=== PATIENT | female | born 1975 | race Caucasian/White ===

== ENCOUNTER 2020-09-07 14:22 | Inpatient (IN) | payer OTHER, SELFPAY ==
[2020-09-07 14:30] VITALS: BP 191/111; PULSE 109; RESP 20; TEMP 36.8; O2SAT 96; BMI 43.5
--- NOTE | 2020-09-07 15:04 | ED_ITS ---
HPI - Psych General Chief Complaint: Psychiatric Symptoms Stated Complaint: not feeling well with n/v Time Seen by Provider: 09/07/20 17:15 Source: patient History of Present Illness HPI Narrative: Patient presents to ED for suicidal ideation. Patient denies having an actual suicidal plan. Patient has been increasingly depressed. Patient has not taking her Zoloft from 1 week. Patient denies suicide attempts in the past. Patient admits drinking alcohol to deal with her depression. patient states although she has been drinking alcohol, she has been drinking less than usual. Patient states she is trying to detox herself from alcohol. Patient states yesterday while sleeping she believes she might have seizure occurred while and than she woke up with urine on herself. Patient states usually when she does not drink enough alcohol she goes into seizure. Patient denies falling, hitting head, or any trauma. MD complaint: suicidal ideation and feels depressed Related Data Allergies Allergy/AdvReac Type Severity Reaction Status Date / Time trazodone [Trazodone] Allergy Severe SWELLING Verified 09/07/20 14:37 oseltamivir Allergy Unknown Unknown Verified 09/07/20 14:37 Review of Systems Review of Systems: Patient is sad. Constitutional: Constitutional: Reports no additional constitutional complaints Eyes: Eyes: Reports as per HPI and Reports no additional eye complaints ENT: Reports system reviewed and no additional complaints, except as documented Cardiovascular: Cardiovascular: Reports no additional cardiovascular complaints Respiratory: Respiratory: Reports as per HPI and Reports no additional respiratory complaints Gastrointestinal: Gastrointestinal: Reports as per HPI, Reports no additional gastrointestinal complaints, Denies abdominal pain, Denies belching, Denies melena, Denies bloating, Denies hematochezia, Denies tenesmus, Denies change in stool character, Denies diarrhea and Denies vomiting Musculoskeletal: Musculoskeletal: Reports no additional musculoskeletal complaints Psychiatric: Psychiatric: Reports no additional psychiatric complaints, Reports depression and Reports suicidal ideation [facility] Social History Social History Alcohol intake: current Alcohol intake frequency: 3 or more drinks per day Alcohol type: hard liquor Smoking Status: Never smoker Use of substances other than those prescribed or required for medical reasons: No Advance Directives: No Advance Directives Information Provided: No Physical Exam Vital Signs: Vital Signs: Vital Signs Temp Pulse Resp BP Pulse Ox 09/07/20 16:50 109 H 16 171/104 H 97 09/07/20 15:32 109 H 191/111 H 09/07/20 14:30 98.3 F 109 H 20 191/111 H 96 Body Mass Index 43.5 Const: General: cooperative, healthy appearing and comfortable Orientation/consciousness: patient oriented x3 HENMT: Head: Yes normal to inspection Eyes: General: appearance normal, both eyes and all related structures Neck: Neck: Yes normal visual inspection, Yes full ROM, Yes no meningeal signs, No lymphadenopathy, No positive Brudzinski's sign and No positive Kernig's sign Chest: Chest palpation & inspection: normal inspection of the chest, normal palpation of entire chest wall, no crepitus, not deferred, no sinus tracts and no tenderness Resp: Effort & Inspection: normal respiratory effort, able to speak in complete sentences, normal respiratory pattern, no audible wheezes, no cough, no grunting, not labored, no nasal flaring, no pursed lip breathing, no respiratory distress and no use of accessory muscles Auscultation: clear to auscultation bilaterally Cardio: Jugular venous distension: no JVD Heart sounds: S1 normal heart sound present and S2 normal heart sound present GI: Inspection: Yes normal to inspection, No Abdominal wall edema, No distended, No incision and No Abdominal panniculus present Percussion: Yes normal to percussion : General: No CVA tenderness and Yes no CVA tenderness Back/Spine/Pelvis: Back: no CVA tenderness, No CVA tenderness and No back tenderness Skin: General skin exam: no rashes or lesions noted Neuro: General: patient oriented x3, no meningeal signs and CN's II-XI intact bilaterally Cranial nerves: Yes CN's II-XII intact bilaterally Extrem: General: Yes normal to inspection and Yes full ROM Psych: Appearance: grossly normal, well kempt and disheveled Course Course Course Narrative: will repeat patient's vital signs. Will order basic labs including alcohol. Patient will need [facility] evaluation. Reevaluation(s) Reevaluation #1: Patient given clonidine, Ativan, for blood pressure control and prevent alcohol withdrawal. Presently patient does not have any tremors. Patient states she did not take her blood pressure medications today. Time: 17:01 Reevaluation #2: Case signed out to end [facility] for better blood pressure control and behavior health network evaluation Time: 17:53 MDM - Psych MDM Narrative Medical decision making narrative: patient to be evaluated by [facility]. plan is for blood pressure to improve. Exam of head and neck negative for signs of trauma. Lab Data Result diagrams: 09/07/20 15:26 09/07/20 15:26 Labs: Lab Results 09/07/20 09/07/20 09/07/20 Range/Units 15:26 15:26 15:26 WBC 3.7 L (4.8-10.8) X10*3/uL RBC 4.84 (4.20-5.50) X10*6/uL Hgb 15.6 (12.0-16.0) g/dl Hct 44.5 (37-47) % MCV 91.9 (80-98) fL MCH 32.2 (27.0-33.0) pg MCHC 35.1 H (31.0-35.0) g/dl RDW 13.6 (11.0-16.0) % Plt Count 166 (160-400) X10*3/uL MPV 8.8 L (9.4-12.3) fL Immature Gran % (Auto) 0.5 H (0.0-0.4) % Neut % (Auto) 71.2 (45-73) % Lymph % (Auto) 16.9 L (20-40) % [place] % (Auto) 10.4 (2-11) % Eos % (Auto) 0.5 (0-4) % Baso % (Auto) 0.5 (0-2) % Lymph # (Auto) 0.6 L (1.2-4.9) X10*3/uL [place] # (Auto) 0.4 (0.1-1.2) X10*3/uL Eos # (Auto) 0.0 (0.0-0.4) X10*3/uL Baso # (Auto) 0.0 (0.0-0.2) X10*3/uL Abs Immat Gran (auto) 0.02 (0.00-0.03) X10*3/uL Absolute Neuts (auto) 2.6 (2.0-8.3) X10*3/uL Absolute Nucleated RBC 0.000 (0.0-0.012) X10*3/uL Nucleated RBC % (auto) 0.0 (0.0-0.2) /100WBC Smear Tech's Comments VERIFIED Sodium 139 (135-145) mmol/L Potassium 4.2 (3.3-5.1) mmol/l Chloride 98 (96-108) mmol/L Carbon Dioxide 28 (22-29) mmol/L Anion Gap 17 (12-20) BUN 21 H (9-16) mg/dL Creatinine 0.82 (0.5-1.4) mg/dL Estim Creat Clear Calc 115.6 Estimated GFR > 60 Random Glucose 130 H (60-115) mg/dL Calcium 8.7 (8.4-10.2) mg/dL Total Bilirubin 1.1 H (0.0-1.0) mg/dL AST 256 H (5-31) U/L ALT 130 H (0-31) U/L Alkaline Phosphatase 91 (39-117) U/L Total Protein 7.1 (6.5-8.0) g/dL Albumin 3.9 (3.5-5.0) g/dL Ethyl Alcohol 203 mg/dL
[2020-09-07 15:31] LABS: Basophils Percent Auto 0.5 % (0-2); Eosinophils Percent Auto 0.5 % (0-4); Hematocrit 44.5 % (37-47); Hemoglobin 15.6 g/dl (12.0-16.0); Imm Gran Abs Auto 0.02 X10*3/uL (0.00-0.03); Imm Gran Pct Auto 0.5 % (0.0-0.4); Lymphocytes Absolute Auto 0.6 X10*3/uL (1.2-4.9); Lymphocytes Percent Auto 16.9 % (20-40); MANUAL DIFF FLAG SCAN; Mean Corpuscular HGB Conc 35.1 g/dl (31.0-35.0); Mean Corpuscular Hemoglobin 32.2 pg (27.0-33.0); Mean Corpuscular Volume 91.9 fL (80-98); Mean Platelet Volume 8.8 fL (9.4-12.3); Monocytes Absolute Auto 0.4 X10*3/uL (0.1-1.2); Monocytes Percent Auto 10.4 % (2-11); Neutrophils Absolute Auto 2.6 X10*3/uL (2.0-8.3); Neutrophils Percent Auto 71.2 % (45-73); Platelet Count 166 X10*3/uL (160-400); Red Blood Count 4.84 X10*6/uL (4.20-5.50); Red Cell Distribution Width 13.6 % (11.0-16.0); SCAN SMEAR FLAG 1; White Blood Count 3.7 X10*3/uL (4.8-10.8)
[2020-09-07] MEDS: LORazepam 1 MG TABLET 2 MG PO (15:31)
[2020-09-07 15:32] VITALS: BP 191/111; PULSE 109
[2020-09-07] MEDS: cloNIDine HCL 0.1 MG TABLET PO (15:32)
--- NOTE | 2020-09-07 15:45 | PC.NURSE ---
patient alert & oriented, labs drawn, pt medicated per order, pt states she is unable to urinate at this time, will continue to monitor.
[2020-09-07 15:52] LABS: Ethanol 203 mg/dL
[2020-09-07 15:56] LABS: SLIDE REVIEW VERIFIED
[2020-09-07 15:57] LABS: Alanine Aminotransferase 130 U/L (0-31); Albumin Level 3.9 g/dL (3.5-5.0); Alkaline Phosphatase 91 U/L (39-117); Anion Gap 17 (12-20); Aspartate Amino Transferase 256 U/L (5-31); Bilirubin Total 1.1 mg/dL (0.0-1.0); Blood Urea Nitrogen 21 mg/dL (9-16); Calcium 8.7 mg/dL (8.4-10.2); Carbon Dioxide 28 mmol/L (22-29); Chloride 98 mmol/L (96-108); Creatinine Clr Calc Pharmacy 115.6; Estimated Glomerular Filt Rate > 60; Glucose Random 130 mg/dL (60-115); Potassium 4.2 mmol/l (3.3-5.1); Sodium 139 mmol/L (135-145); Total Protein 7.1 g/dL (6.5-8.0)
[2020-09-07 16:50] VITALS: BP 171/104; PULSE 109; RESP 16; O2SAT 97
--- NOTE | 2020-09-07 17:49 | PC.NURSE ---
patient sleeping, wakes to verbal stimulus, patient still states she doesnt have to urinate yet, no c/o pain or discomfort at this time, sitter at bedside, will continue to monitor.
[2020-09-07 18:45] VITALS: BP 182/118; PULSE 120; RESP 18; TEMP 37.2; O2SAT 94
--- NOTE | 2020-09-07 18:46 | PC.NURSE ---
PATIENT ALERT * ORIENTED TO PERSON/PLACE, AMBULATED WITH THIS RN TO BATHROOM OBTAINED URINE, UPON RETURNING TO BED, OBTAINED VITALS- PATIENT WAS HYPERTENSIVE AND TACHY, WILL NOTIFY PROVIDER, SPOKE WITH CHARGE NURSE ABOUT PLACING PATIENT IN ROOM 22 UPON THAT PATIENTS DISCHARGE, WILL CONTINUE TO MONITOR.
--- NOTE | 2020-09-07 18:53 | ECG_ITS ---
Test Reason : CRISIS Blood Pressure : / mmHG Vent. Rate : 115 BPM Atrial Rate : 115 BPM P-R Int : 150 ms QRS Dur : 072 ms QT Int : 314 ms P-R-T Axes : 037 061 049 degrees QTc Int : 434 ms Sinus tachycardia Otherwise normal ECG When compared with ECG of 19-MAY-2019 02:05, No significant change was found Referred By: Kim Mcclure Electronically Signed By:BARBIE WHEELER MD
--- NOTE | 2020-09-07 18:54 | CT_ITS ---
EXAMINATION: CT ABDOMEN AND PELVIS WITHOUT CONTRAST CLINICAL INFORMATION: elevated liver enzymes . COMPARISON: No pertinent prior studies are available for comparison. TECHNIQUE: Multidetector volumetric imaging was performed from the superior aspect of the liver through the pubic symphysis without contrast per renal stone protocol. Sagittal and coronal reformatted images were obtained on the technologist workstation. This CT examination was performed using dose optimization techniques as appropriate, variously including the following: *Automated exposure control *Adjustment of mA and/or kV according to patient size (this includes techniques or standardized protocols for targeted exams where dose is matched to indication/reason for exam; i.e. extremities or head) *Use of iterative reconstruction technique DLP: 1317 mGy-cm. FINDINGS: LUNG BASES: The visualized lung bases are unremarkable. LIVER, GALLBLADDER, BILIARY TREE: There is diffuse fatty infiltration the liver but no focal hepatic lesion nor biliary ductal dilatation. The gallbladder is unremarkable with no evidence of radiopaque gallstones, gallbladder wall thickening, or obvious pericholecystic inflammatory changes. PANCREAS: Unremarkable. SPLEEN: Unremarkable. ADRENAL GLANDS: Unremarkable. KIDNEYS AND URETERS: The kidneys are normal in size, shape, and attenuation. No hydronephrosis, hydroureter, or calculi seen. No perinephric stranding. BLADDER: Unremarkable. GASTROINTESTINAL TRACT: The small and large bowel are unremarkable. The appendix is unremarkable. ABDOMINAL WALL: No significant hernia is appreciated. LYMPHOVASCULAR STRUCTURES: No lymphadenopathy. The aorta is unremarkable.. PELVIC VISCERA: IUD within the anteroverted uterus probable small anterior fundal fibroid OSSEUS STRUCTURES: Unremarkable. IMPRESSION: Diffuse fatty infiltration of liver. No acute intra-abdominal process identified.
[2020-09-07 18:58] LABS: UPreg QC Valid YES; Urine Pregnancy NEGATIVE (NEGATIVE)
[2020-09-07 19:15] LABS: Amphetamine Screen Urine Not Detected (Not Detect); Barbiturates, Urine Not Detected (Not Detect); Benzodiazepines Screen Urine Not Detected (Not Detect); Cannabinoid Screen Urine Not Detected (Not Detect); Cocaine Screen Urine Not Detected (Not Detect); Opiate Screen Urine Not Detected (Not Detect); Phencyclidine Screen Urine Not Detected (Not Detect)
[2020-09-07] MEDS: LORazepam 2 MG/ML VIAL 1 MG IVPUSH (19:30)
[2020-09-07] MEDS: 0.9 % Sodium Chloride 1,000 ML 999 ML IVCONT ×2 (19:30)
--- NOTE | 2020-09-07 19:34 | ED_ITS ---
HPI - Abdominal Pain General Chief Complaint: Psychiatric Symptoms Stated Complaint: not feeling well with n/v Time Seen by Provider: 09/07/20 17:15 Source: patient Related Data Allergies Allergy/AdvReac Type Severity Reaction Status Date / Time trazodone [Trazodone] Allergy Severe SWELLING Verified 09/07/20 14:37 oseltamivir Allergy Unknown Unknown Verified 09/07/20 14:37 Review of Systems Review of Systems Constitutional: No Weight loss, No Fever, No Chills, No Night Sweats, No Fatigue, No Malaise ENT/Mouth: No Hearing loss, No Ear Pain, No Nasal Congestion, No Sinus Pain, No Hoarseness, No sore throat, No Rhinorrhea, No Swallowing Difficulty Eyes: No Eye Pain, No Swelling, No Redness, No Foreign Body, No Discharge, No Vision Changes Cardiovascular: No Chest Pain, No SOB, No Dyspnea on Exertion, No Orthopnea, No Edema, No Palpitations Respiratory: No Cough, No Sputum, No Wheezing, No Smoke Exposure, No Dyspnea Gastrointestinal: Positive Nausea, Positive Vomiting, positive Diarrhea, positive abdominal Pain, No Hematochezia, No Melena Genitourinary: no irregular bleeding, No Dysuria, No Urinary Frequency, No Hematuria, No Urinary Incontinence, No Urgency, No Flank Pain, No Urinary Flow Changes, No Hesitancy Musculoskeletal: No joint pain, No Myalgias, No Joint Swelling Skin: No Skin Lesions, No rash Neuro: No Weakness, No Numbness, No Paresthesias, No Loss of Consciousness, No Dizziness, No Headache Psych: No Anxiety/Panic, No Depression, No SI/HI/AH/VH, No Social Issues, Heme/Lymph: No Bruising, No Bleeding,No Lymphadenopathy Endocrine: No Polyuria, No Polydipsia, No Temperature Intolerance Physical Exam Vital Signs: Vital Signs: Vital Signs Temp Pulse Resp BP Pulse Ox 09/07/20 22:00 99.1 F 108 H 18 181/110 H 94 09/07/20 20:00 99.0 F 113 H 18 155/108 H 09/07/20 18:45 98.9 F 120 H 18 182/118 H 94 09/07/20 16:50 109 H 16 171/104 H 97 09/07/20 15:32 109 H 191/111 H 09/07/20 14:30 98.3 F 109 H 20 191/111 H 96 Body Mass Index 43.5 Appearance: Alert. Oriented X3. No acute distress. Eyes: Pupils equal, round and reactive to light. ENT: Pharynx normal. Neck: Normal inspection. Neck supple. CVS: Normal heart rate and rhythm. Pulses normal. Respiratory: No respiratory distress. Breath sounds normal. Abdomen: diffuse abdominal pain. Skin: Skin warm and dry. Normal skin color. Normal skin turgor. Extremities: No lower extremity edema. No lower extremity edema. Neuro: Oriented X 3. No motor deficit. No sensory deficit. Course Course Course Narrative: sign-out from Mukul CARO at 18 30. a review of labs indicates elevated AST at 256 ALT at 130 and bilirubin of 1.1, suggestive of pancreatitis. Patient is tachycardic 120 with white count of 3.7. This time we will initiate 2 L of fluids, and CT of abdomen and pelvis to rule out pancreatitis and acute abdomen. 2 mg p.o. Ativan given for request as patient is feeling as if she is detoxing from alcohol this time. at 8:06 p.m., troponin elevated at 45. Reevaluation(s) Reevaluation #1: Patient presentation discussed with hospitalist, will admit for ETOH, pancreatitis, and elevated troponin. Time: 20:27 Consultations Consultation #1: Moustapha Time: 20:26 MDM - Abdominal Pain Medical Records Attestation: I reviewed the patient's medical records. Lab Data Attestation: I reviewed the patient's lab results. Result diagrams: 09/07/20 15:26 09/07/20 15:26 Labs: Lab Results 09/07/20 09/07/20 09/07/20 Range/Units 15:26 15:26 15:26 WBC 3.7 L (4.8-10.8) X10*3/uL RBC 4.84 (4.20-5.50) X10*6/uL Hgb 15.6 (12.0-16.0) g/dl Hct 44.5 (37-47) % MCV 91.9 (80-98) fL MCH 32.2 (27.0-33.0) pg MCHC 35.1 H (31.0-35.0) g/dl RDW 13.6 (11.0-16.0) % Plt Count 166 (160-400) X10*3/uL MPV 8.8 L (9.4-12.3) fL Immature Gran % (Auto) 0.5 H (0.0-0.4) % Neut % (Auto) 71.2 (45-73) % Lymph % (Auto) 16.9 L (20-40) % [place] % (Auto) 10.4 (2-11) % Eos % (Auto) 0.5 (0-4) % Baso % (Auto) 0.5 (0-2) % Lymph # (Auto) 0.6 L (1.2-4.9) X10*3/uL [place] # (Auto) 0.4 (0.1-1.2) X10*3/uL Eos # (Auto) 0.0 (0.0-0.4) X10*3/uL Baso # (Auto) 0.0 (0.0-0.2) X10*3/uL Abs Immat Gran (auto) 0.02 (0.00-0.03) X10*3/uL Absolute Neuts (auto) 2.6 (2.0-8.3) X10*3/uL Absolute Nucleated RBC 0.000 (0.0-0.012) X10*3/uL Nucleated RBC % (auto) 0.0 (0.0-0.2) /100WBC Smear Tech's Comments VERIFIED Sodium 139 (135-145) mmol/L Potassium 4.2 (3.3-5.1) mmol/l Chloride 98 (96-108) mmol/L Carbon Dioxide 28 (22-29) mmol/L Anion Gap 17 (12-20) BUN 21 H (9-16) mg/dL Creatinine 0.82 (0.5-1.4) mg/dL Estim Creat Clear Calc 115.6 Estimated GFR > 60 Random Glucose 130 H (60-115) mg/dL Lactic Acid (0.5-2.0) mmol/L Calcium 8.7 (8.4-10.2) mg/dL Total Bilirubin 1.1 H (0.0-1.0) mg/dL AST 256 H (5-31) U/L ALT 130 H (0-31) U/L Alkaline Phosphatase 91 (39-117) U/L Troponin I High Sens (<3.5-17.0) ng/L Total Protein 7.1 (6.5-8.0) g/dL Albumin 3.9 (3.5-5.0) g/dL Urine Test (NEGATIVE) Urine Opiates Screen (Not Detect) Ur Barbiturates Screen (Not Detect) Ur Phencyclidine Scrn (Not Detect) Ur Amphetamines Screen (Not Detect) U Benzodiazepines Scrn (Not Detect) Urine Cocaine Screen (Not Detect) U Marijuana (THC) Screen (Not Detect) Ethyl Alcohol 203 mg/dL 09/07/20 09/07/20 09/07/20 Range/Units 18:38 18:38 19:19 WBC (4.8-10.8) X10*3/uL RBC (4.20-5.50) X10*6/uL Hgb (12.0-16.0) g/dl Hct (37-47) % MCV (80-98) fL MCH (27.0-33.0) pg MCHC (31.0-35.0) g/dl RDW (11.0-16.0) % Plt Count (160-400) X10*3/uL MPV (9.4-12.3) fL Immature Gran % (Auto) (0.0-0.4) % Neut % (Auto) (45-73) % Lymph % (Auto) (20-40) % [place] % (Auto) (2-11) % Eos % (Auto) (0-4) % Baso % (Auto) (0-2) % Lymph # (Auto) (1.2-4.9) X10*3/uL [place] # (Auto) (0.1-1.2) X10*3/uL Eos # (Auto) (0.0-0.4) X10*3/uL Baso # (Auto) (0.0-0.2) X10*3/uL Abs Immat Gran (auto) (0.00-0.03) X10*3/uL Absolute Neuts (auto) (2.0-8.3) X10*3/uL Absolute Nucleated RBC (0.0-0.012) X10*3/uL Nucleated RBC % (auto) (0.0-0.2) /100WBC Smear Tech's Comments Sodium (135-145) mmol/L Potassium (3.3-5.1) mmol/l Chloride (96-108) mmol/L Carbon Dioxide (22-29) mmol/L Anion Gap (12-20) BUN (9-16) mg/dL Creatinine (0.5-1.4) mg/dL Estim Creat Clear Calc Estimated GFR Random Glucose (60-115) mg/dL Lactic Acid (0.5-2.0) mmol/L Calcium (8.4-10.2) mg/dL Total Bilirubin (0.0-1.0) mg/dL AST (5-31) U/L ALT (0-31) U/L Alkaline Phosphatase (39-117) U/L Troponin I High Sens 45.7 H (<3.5-17.0) ng/L Total Protein (6.5-8.0) g/dL Albumin (3.5-5.0) g/dL Urine Test NEGATIVE (NEGATIVE) Urine Opiates Screen Not Detected (Not Detect) Ur Barbiturates Screen Not Detected (Not Detect) Ur Phencyclidine Scrn Not Detected (Not Detect) Ur Amphetamines Screen Not Detected (Not Detect) U Benzodiazepines Scrn Not Detected (Not Detect) Urine Cocaine Screen Not Detected (Not Detect) U Marijuana (THC) Screen Not Detected (Not Detect) Ethyl Alcohol mg/dL 09/07/20 Range/Units 19:58 WBC (4.8-10.8) X10*3/uL RBC (4.20-5.50) X10*6/uL Hgb (12.0-16.0) g/dl Hct (37-47) % MCV (80-98) fL MCH (27.0-33.0) pg MCHC (31.0-35.0) g/dl RDW (11.0-16.0) % Plt Count (160-400) X10*3/uL MPV (9.4-12.3) fL Immature Gran % (Auto) (0.0-0.4) % Neut % (Auto) (45-73) % Lymph % (Auto) (20-40) % [place] % (Auto) (2-11) % Eos % (Auto) (0-4) % Baso % (Auto) (0-2) % Lymph # (Auto) (1.2-4.9) X10*3/uL [place] # (Auto) (0.1-1.2) X10*3/uL Eos # (Auto) (0.0-0.4) X10*3/uL Baso # (Auto) (0.0-0.2) X10*3/uL Abs Immat Gran (auto) (0.00-0.03) X10*3/uL Absolute Neuts (auto) (2.0-8.3) X10*3/uL Absolute Nucleated RBC (0.0-0.012) X10*3/uL Nucleated RBC % (auto) (0.0-0.2) /100WBC Smear Tech's Comments Sodium (135-145) mmol/L Potassium (3.3-5.1) mmol/l Chloride (96-108) mmol/L Carbon Dioxide (22-29) mmol/L Anion Gap (12-20) BUN (9-16) mg/dL Creatinine (0.5-1.4) mg/dL Estim Creat Clear Calc Estimated GFR Random Glucose (60-115) mg/dL Lactic Acid 3.1 H* (0.5-2.0) mmol/L Calcium (8.4-10.2) mg/dL Total Bilirubin (0.0-1.0) mg/dL AST (5-31) U/L ALT (0-31) U/L Alkaline Phosphatase (39-117) U/L Troponin I High Sens (<3.5-17.0) ng/L Total Protein (6.5-8.0) g/dL Albumin (3.5-5.0) g/dL Urine Test (NEGATIVE) Urine Opiates Screen (Not Detect) Ur Barbiturates Screen (Not Detect) Ur Phencyclidine Scrn (Not Detect) Ur Amphetamines Screen (Not Detect) U Benzodiazepines Scrn (Not Detect) Urine Cocaine Screen (Not Detect) U Marijuana (THC) Screen (Not Detect) Ethyl Alcohol mg/dL Imaging Data CT scan - abdomen: Attestation: I personally reviewed and interpreted this imaging study as follows: Radiologist's impression: FINDINGS: LUNG BASES: The visualized lung bases are unremarkable. LIVER, GALLBLADDER, BILIARY TREE: There is diffuse fatty infiltration the liver but no focal hepatic lesion nor biliary ductal dilatation. The gallbladder is unremarkable with no evidence of radiopaque gallstones, gallbladder wall thickening, or obvious pericholecystic inflammatory changes. PANCREAS: Unremarkable. SPLEEN: Unremarkable. ADRENAL GLANDS: Unremarkable. KIDNEYS AND URETERS: The kidneys are normal in size, shape, and attenuation. No hydronephrosis, hydroureter, or calculi seen. No perinephric stranding. BLADDER: Unremarkable. GASTROINTESTINAL TRACT: The small and large bowel are unremarkable. The appendix is unremarkable. ABDOMINAL WALL: No significant hernia is appreciated. LYMPHOVASCULAR STRUCTURES: No lymphadenopathy. The aorta is unremarkable.. PELVIC VISCERA: IUD within the anteroverted uterus probable small anterior fundal fibroid OSSEUS STRUCTURES: Unremarkable. IMPRESSION: Diffuse fatty infiltration of liver. No acute intra-abdominal process identified. ECG Data Attestation: I personally reviewed and interpreted this ECG as follows: ECG interpretation date: 09/07/20 ECG interpretation time: 19:17 Interpretation: Vent. Rate : 115 BPM Atrial Rate : 115 BPM P-R Int : 150 ms QRS Dur : 072 ms QT Int : 314 ms P-R-T Axes : 037 061 049 degrees QTc Int : 434 ms Sinus tachycardia Otherwise normal ECG When compared with ECG of 19-MAY-2019 02:05, No significant change was found Critical Care Time Critical Care Time Critical Care Time: Yes Total Critical Care Time: 45 Attestation: I have personally provided critical care time exclusive of time spent on separately billable procedures. Time includes review of laboratory data, radiology results, discussion with consultants, and monitoring for potential decompensation. Interventions were performed as documented. Discharge Plan Discharge Clinical Impression: Suicidal ideation Pancreatitis, alcoholic, acute Qualifiers: Acute pancreatitis complication: unspecified Qualified Code(s): K85.20 - Alcohol induced acute pancreatitis without necrosis or infection Patient Disposition: Admitted As Inpatient [facility] Social History Social History Alcohol intake: current Alcohol intake frequency: 3 or more drinks per day Alcohol type: hard liquor Smoking Status: Never smoker Use of substances other than those prescribed or required for medical reasons: No Advance Directives: No Advance Directives Information Provided: No
--- NOTE | 2020-09-07 19:34 | PC.NURSE ---
patient moved to room 22, iv started via ultrasound, lab drawn, ekg performed, cardiac nurse specialist applied, patient sinus tach 117, pt to ct scan
--- NOTE | 2020-09-07 19:35 | PC.NURSE ---
pt medicated per order
--- NOTE | 2020-09-07 19:39 | PC.NURSE ---
PATIENTS IV SITE WAS STARTED VIA ULTRASOUND, PROVIDER ASKED FOR ADDITIONAL LABS AFTER IV WAS PLACED, PHLEBOTOMY WAS CONTACTED PATIENT IS A DIFFICULT STICK
--- NOTE | 2020-09-07 19:41 | PC.NURSE ---
CARE TEAM CAME TO ED TO SEE PATIENT, PATIENT CURRENTLY IN CT SCAN AND THEY WILL CHECK IN WITH HER SHORTLY, 1:1 SITTER AT BEDSIDE
[2020-09-07 20:00] VITALS: BP 155/108; PULSE 113; RESP 18; TEMP 37.2
[2020-09-07 20:07] LABS: Troponin-I High Sensitivity 45.7 ng/L (<3.5-17.0)
[2020-09-07 20:39] LABS: Lactic Acid 3.1 mmol/L (0.5-2.0)
--- NOTE | 2020-09-07 21:38 | PC.NURSE ---
PATIENTS IV SITE IS ONLY SLOWLY RUNNING FLUIDS AND IVF STILL HAVE NOT INFUSED FULLY, PROVIDER IS AWARE, ALTERNATIVE SITES ARE BEING LOOKED AT USING US GUIDED.
--- NOTE | 2020-09-07 21:43 | MHC.CARE ---
Pt presented to [facility] [place] secondary to an increase in depression, vague SI, not feeling well, has not been medication compliant for 1wk and self medicating w alcohol. Consult was requested. T/W attempted to check in with pt however she was sleeping. Pt will be medically admitted and will require a consult once medically cleared to assess for risk and or determine if a crisis assessment is needed at that time.
[2020-09-07 22:00] VITALS: BP 181/110; PULSE 108; RESP 18; TEMP 37.3; O2SAT 94
[2020-09-07 22:05] LABS: Reflex Lactate? Lactic Acid Added
--- NOTE | 2020-09-07 22:14 | PC.NURSE ---
patient sleeping, wakes to verbal stimulus, sitter at bedside, pt sinus tach on monitor, pt continues to be hypertensive, new iv inserted via us, will continue to monitor.
--- NOTE | 2020-09-07 22:40 | PC.NURSE ---
patient ambulating with sitter to bathroom, patient states she still feels foggy, radiation monitor continues to be sinus tach low 100s, hospitalist notified of patients continued htn, will continue to monitor.
--- NOTE | 2020-09-07 22:49 | PC.NURSE ---
called floor to give report, the overnight nurse is in report on the floor and will call back as soon as she is able.
--- NOTE | 2020-09-07 22:52 | PC.NURSE ---
dr florence is aware of the bp and would like the patient sent to [facility] [place] and they can address the bp when they arrive on the floor- physician believes its withdrawal and pt will be starting phenobarb on the floor.
[2020-09-07 23:06] LABS: ~Lactic Acid-LAB USE ONLY 2.3 mmol/L (0.5-2.0)
--- NOTE | 2020-09-07 23:55 | P.HPIM_ITS ---
History of Present Illness Date of Service: 09/07/20 Chief Complaint: suicidal ideation, alcohol abuse, abdominal pain 44-year-old female with past medical history of alcohol abuse, bipolar, hypertension, PTSD who presents to the hospital with complaints of abdominal pain as well as alcohol abuse and would like to go through detox. She also suicidal. Patient reports that she has been having abdominal pain for the past 2 weeks, epigastric, radiating to the left, associated with nausea and vomiting and low appetite. She has had on and off diarrhea, she is also complaining of chronic on and off, with minimal sputum production, chills, no fever, patient has no urinary symptoms and no lower extremity edema. Patient feels suicidal but has no plan to hurt herself. Normal saddle ideation. She reports that she drinks all day and unable to tell me quantity, she has had history of withdrawals. On arrival to the ED patient's labs are significant for a temp of 99?, respiratory rate of 20, blood pressure of 191/111 labs are significant for lactic acid of 3.1, AST of 256, ALT of 130, CT of the abdomen shows diffuse fatty infiltration of liver, no acute intra- abdominal process past medical history: Hypertension, this decub alcohol abuse, anxiety and depression Past surgical history: Denies family history is patient does not or family history well social history: Comes from home, denies any tobacco, drinks all day, uses no drugs Review of Systems Review of Systems: Yes all other systems are reviewed and are negative [facility] Social History Household Members: Family Housing: House Do you presently have visiting nurse or other home services: No Alcohol intake: current Alcohol intake frequency: 3 or more drinks per day Alcohol type: hard liquor Smoking Status: Former smoker Smoked in Last 30 Days: No Use of substances other than those prescribed or required for medical reasons: No Have you been hit, kicked, punched, or otherwise hurt by someone within the past year? If so, by whom?: No Do you feel safe in your current relationship?: Yes Is there a partner from a previous relationship who is making you feel unsafe now?: No Are you made to feel afraid or neglected: No Advance Directives: No Advance Directives Information Provided: No Do you have thoughts of harming others: None Recently lost weight without trying: No Meds Allergies Allergy/AdvReac Type Severity Reaction Status Date / Time trazodone [Trazodone] Allergy Severe SWELLING Verified 09/07/20 14:37 oseltamivir Allergy Unknown Unknown Verified 09/07/20 14:37 Physical Exam Vital Signs and Narrative: Vital Signs: Last Vital Signs Temp 99.1 F 09/07/20 22:00 Pulse 108 H 09/07/20 22:00 Resp 18 09/07/20 22:00 BP 181/110 H 09/07/20 22:00 Pulse Ox 94 09/07/20 22:00 Body Mass Index 43.5 Const: General: cooperative and no acute distress Orientation/consciousness: patient oriented x3 Eyes: General: appearance normal, both eyes and all related structures Pupils: Equal, round and reactive pupils present Resp: Effort & Inspection: normal respiratory effort and able to speak in complete sentences Auscultation: clear to auscultation bilaterally Cardio: Rate: regular rate Rhythm: regular rhythm GI: Palpation (GI): Soft to palpation Auscultation: normal bowel sounds Skin: General skin exam: no rashes or lesions noted Neuro: General: patient oriented x3 Cranial nerves: Yes Equal, round and reactive pupils present Cognition (Neuro): normal cognition Extrem: General: Yes normal to inspection and Yes no pedal edema Psych: Appearance: disheveled Results Labs Labs: Laboratory Tests 09/07/20 09/07/20 09/07/20 15:26 15:26 15:26 WBC 3.7 L RBC 4.84 Hgb 15.6 Hct 44.5 MCV 91.9 MCH 32.2 MCHC 35.1 H RDW 13.6 Plt Count 166 MPV 8.8 L Immature Gran % (Auto) 0.5 H Neut % (Auto) 71.2 Lymph % (Auto) 16.9 L [place] % (Auto) 10.4 Eos % (Auto) 0.5 Baso % (Auto) 0.5 Lymph # (Auto) 0.6 L [place] # (Auto) 0.4 Eos # (Auto) 0.0 Baso # (Auto) 0.0 Abs Immat Gran (auto) 0.02 Absolute Neuts (auto) 2.6 Absolute Nucleated RBC 0.000 Nucleated RBC % (auto) 0.0 Smear Tech's Comments VERIFIED Sodium 139 Potassium 4.2 Chloride 98 Carbon Dioxide 28 Anion Gap 17 BUN 21 H Creatinine 0.82 Estim Creat Clear Calc 115.6 Estimated GFR > 60 Random Glucose 130 H Lactic Acid Lactic Acid Fup @ 2Hr Calcium 8.7 Total Bilirubin 1.1 H AST 256 H ALT 130 H Alkaline Phosphatase 91 Troponin I High Sens Total Protein 7.1 Albumin 3.9 Urine Test Urine Opiates Screen Ur Barbiturates Screen Ur Phencyclidine Scrn Ur Amphetamines Screen U Benzodiazepines Scrn Urine Cocaine Screen U Marijuana (THC) Screen Ethyl Alcohol 203 09/07/20 09/07/20 09/07/20 18:38 18:38 19:19 WBC RBC Hgb Hct MCV MCH MCHC RDW Plt Count MPV Immature Gran % (Auto) Neut % (Auto) Lymph % (Auto) [place] % (Auto) Eos % (Auto) Baso % (Auto) Lymph # (Auto) [place] # (Auto) Eos # (Auto) Baso # (Auto) Abs Immat Gran (auto) Absolute Neuts (auto) Absolute Nucleated RBC Nucleated RBC % (auto) Smear Tech's Comments Sodium Potassium Chloride Carbon Dioxide Anion Gap BUN Creatinine Estim Creat Clear Calc Estimated GFR Random Glucose Lactic Acid Lactic Acid Fup @ 2Hr Calcium Total Bilirubin AST ALT Alkaline Phosphatase Troponin I High Sens 45.7 H Total Protein Albumin Urine Test NEGATIVE Urine Opiates Screen Not Detected Ur Barbiturates Screen Not Detected Ur Phencyclidine Scrn Not Detected Ur Amphetamines Screen Not Detected U Benzodiazepines Scrn Not Detected Urine Cocaine Screen Not Detected U Marijuana (THC) Screen Not Detected Ethyl Alcohol 09/07/20 09/07/20 19:58 22:37 WBC RBC Hgb Hct MCV MCH MCHC RDW Plt Count MPV Immature Gran % (Auto) Neut % (Auto) Lymph % (Auto) [place] % (Auto) Eos % (Auto) Baso % (Auto) Lymph # (Auto) [place] # (Auto) Eos # (Auto) Baso # (Auto) Abs Immat Gran (auto) Absolute Neuts (auto) Absolute Nucleated RBC Nucleated RBC % (auto) Smear Tech's Comments Sodium Potassium Chloride Carbon Dioxide Anion Gap BUN Creatinine Estim Creat Clear Calc Estimated GFR Random Glucose Lactic Acid 3.1 H* Lactic Acid Fup @ 2Hr 2.3 H* Calcium Total Bilirubin AST ALT Alkaline Phosphatase Troponin I High Sens Total Protein Albumin Urine Test Urine Opiates Screen Ur Barbiturates Screen Ur Phencyclidine Scrn Ur Amphetamines Screen U Benzodiazepines Scrn Urine Cocaine Screen U Marijuana (THC) Screen Ethyl Alcohol Assessment and Plan (1) Alcohol abuse: Status: Acute (2) Pancreatitis, alcoholic, acute: Qualifiers: Acute pancreatitis complication: unspecified Qualified Code(s): K85.20 - Alcohol induced acute pancreatitis without necrosis or infection Status: Acute (3) Suicidal ideation: Status: Acute (4) Bipolar 1 disorder: Status: Acute (5) Lactic acidosis: Status: Acute this is a 44-year-old female with alcohol abuse who presents to the hospital with abdominal pain, and suicidal ideation found to have acute pancreatitis # acute pancreatitis secondary to alcohol abuse - has elevated lipase, characteristic abdominal pain - CT abdomen showing no acute pancreatitis Plan: - IV fluids, patient is feeling hungry therefore will start her on clear liquid diet, antiemetics, and pain management # alcohol abuse with significant potential to withdrawal - patient drinks all day daily - she is interested in detox - will start her on phenobarb taper - thiamine and folic acid supplements # lactic acidosis - unclear etiology - possibly secondary to alcohol abuse and starvation ketosis - improved after IV fluid plan: - continue IV fluids - trend # mood disorder - continue home regimen DVT prophylaxis: Lovenox date of service 09/08/2020
[2020-09-08] VITALS (16 sets, daily range): BP systolic 131–186; BP diastolic 56–112; PULSE 68–119; RESP 18–21; TEMP 36.2–37; O2SAT 94–98; BMI 45.1; BMI 43.7
--- NOTE | 2020-09-08 00:30 | PC.NURSE ---
ADMITTED WITH SI,ETOH ABUSE.PT IS A+O.SL TREMORS PRESENT.COOP WITH CARE,MILD ANXIETY.IV FLUIDS STARTED PER MD ORDER.ALSO STARTED ON PHENOBARB PROTOCOL.SITTER AT BEDSIDE FOR SAFETY.CARE TEAM ,CRISIS CONSULTS TO SEE.ORIENTED TO UNIT AND PLAN OF CARE.
[2020-09-08 00:42] LABS: Reflex Lactate? 2 Y
[2020-09-08] MEDS: Enoxaparin Sodium 40 MG/0.4 ML SYRINGE SUBCUT ×2 (01:01→23:52)
[2020-09-08] MEDS: 0.9 % Sodium Chloride Flush 3 ML SYRINGE IVFLUSH ×3 (01:02→23:52)
[2020-09-08] MEDS: Lactated Ringers 1,000 ML 100 ML IVCONT ×3 (01:03→16:53)
[2020-09-08] MEDS: PHENobarbitaL sodium 130 MG/ML VIAL 237 MG IM (01:05)
[2020-09-08 01:24] LABS: ~Lactic Acid-LAB USE ONLY 1.7 mmol/L (0.5-2.0)
[2020-09-08] MEDS: Acetaminophen 325 MG TABLET 650 MG PO (03:32)
[2020-09-08] MEDS: PHENobarbitaL sodium 130 MG/ML VIAL 178 MG IM ×2 (04:59→10:20)
[2020-09-08] MEDS: hydrALAZINE HCl 20 MG/ML VIAL 5 MG IVPUSH (05:06)
[2020-09-08 06:25] LABS: MANUAL DIFF FLAG NO
[2020-09-08 06:47] LABS: Basophils Percent Auto 0.3 % (0-2); Eosinophils Percent Auto 0.6 % (0-4); Hematocrit 41.2 % (37-47); Hemoglobin 14.4 g/dl (12.0-16.0); Imm Gran Abs Auto 0.02 X10*3/uL (0.00-0.03); Imm Gran Pct Auto 0.6 % (0.0-0.4); Lymphocytes Percent Auto 30.5 % (20-40); Mean Corpuscular Hemoglobin 32.7 pg (27.0-33.0); Mean Corpuscular Volume 93.4 fL (80-98); Mean Platelet Volume 9.5 fL (9.4-12.3); Monocytes Absolute Auto 0.4 X10*3/uL (0.1-1.2); Monocytes Percent Auto 11.5 % (2-11); Neutrophils Absolute Auto 1.8 X10*3/uL (2.0-8.3); Neutrophils Percent Auto 56.5 % (45-73); Platelet Count 132 X10*3/uL (160-400); Red Blood Count 4.41 X10*6/uL (4.20-5.50); Red Cell Distribution Width 13.4 % (11.0-16.0); White Blood Count 3.2 X10*3/uL (4.8-10.8)
[2020-09-08 07:07] LABS: Anion Gap 12 (12-20); Blood Urea Nitrogen 18 mg/dL (9-16); Carbon Dioxide 27 mmol/L (22-29); Chloride 97 mmol/L (96-108); Creatinine Clr Calc Pharmacy 123.4; Estimated Glomerular Filt Rate > 60; Glucose Random 112 mg/dL (60-115); Potassium 3.4 mmol/l (3.3-5.1); Sodium 133 mmol/L (135-145)
[2020-09-08 07:11] LABS: Troponin-I High Sensitivity 54.7 ng/L (<3.5-17.0)
[2020-09-08 07:21] LABS: Thyroid Stimulating Hormone 1.62 mIU/mL (0.32-4.0)
[2020-09-08] MEDS: Aspirin Enteric Coated 81 MG TABLET.DR PO (07:55)
[2020-09-08] MEDS: Lactated Ringers 1,000 ML 200 ML IVCONT (07:59)
[2020-09-08] MEDS: Labetalol HCL 200 MG TABLET PO ×3 (09:19→21:43)
[2020-09-08 10:39] LABS: Alanine Aminotransferase 121 U/L (0-31); Albumin Level 3.5 g/dL (3.5-5.0); Alkaline Phosphatase 94 U/L (39-117); Aspartate Amino Transferase 211 U/L (5-31); Bilirubin Direct 0.8 mg/dL (0.0-0.5); Bilirubin Total 1.6 mg/dL (0.0-1.0); Total Protein 6.7 g/dL (6.5-8.0)
--- NOTE | 2020-09-08 11:55 | MHC.CM.PN ---
pt to be seen by [facility] when medically stable? psych placement
--- NOTE | 2020-09-08 18:32 | HO.PM.IMPN ---
Subjective Subjective Date of Service: 09/08/20 Interval History: alcohol withdrawal. Review of Systems Patient is still tremulous, has some dizziness also. Denies any chest pain or shortness of breath or fever or chills. abd pain seems improving Physical Exam Vital Signs: Vital Signs: Vital Signs Temp Pulse Resp BP Pulse Ox 09/08/20 15:14 92 140/99 H 09/08/20 15:06 97.1 F 92 18 140/90 H 95 09/08/20 11:32 152/102 H 09/08/20 11:16 98.1 F 97 18 159/101 H 95 09/08/20 10:19 150/102 H 09/08/20 09:19 102 H 180/112 H 09/08/20 09:13 180/112 H 09/08/20 07:32 98.2 F 106 H 18 154/106 H 95 09/08/20 05:41 164/108 H 09/08/20 05:06 107 H 186/98 H 09/08/20 01:08 170/110 H 09/08/20 00:22 98.6 F 119 H 21 H 94 09/08/20 00:00 97.7 F 104 H 20 186/98 H 95 09/07/20 22:00 99.1 F 108 H 18 181/110 H 94 09/07/20 20:00 99.0 F 113 H 18 155/108 H 09/07/20 18:45 98.9 F 120 H 18 182/118 H 94 Body Mass Index 43.7 physical exam: cvs: rrr, [id number] , no murmur. res: clear to auscultation ,no rhonchii or wheezing abd: no rebound or guarding ,nt, bs present. ext :pulses present , no cyanosis neuro: axo3 , nonfocal.still tramulous . Objective Data Current Medications Generic Name Dose Route Start Last Admin Trade Name Freq PRN Reason Stop Dose Admin Acetaminophen 650 mg 09/07/20 23:38 09/08/20 03:32 Acetaminophen 325 Mg Tablet PO 650 mg Q6H PRN Administration Pain, Mild (Pain Scale 1-3) Aspirin 81 mg 09/08/20 09:00 09/08/20 07:55 Aspirin Enteric Coated 81 Mg Tablet.Dr PO 81 mg DAILY PO Administration Docusate Sodium 100 mg 09/07/20 23:38 Docusate Sodium 100 Mg Capsule PO DAILY PRN Constipation Enoxaparin Sodium 40 mg 09/07/20 23:38 09/08/20 01:01 Enoxaparin Sodium 40 Mg/0.4 Ml Syringe SUBCUT 40 mg Q24H PO Administration Lactated Ringer's 1,000 mls @ 100 mls/hr 09/08/20 09:30 09/08/20 16:53 Lr IVCONT 100 mls/hr .Q10H PO Administration Labetalol HCl 200 mg 09/08/20 09:00 09/08/20 15:14 Labetalol Hcl 200 Mg Tablet PO 200 mg TID PO Administration Protocol Medication 1 each 09/08/20 09:00 No Benzodiazepines MISCELLANE DAILY PO Ondansetron HCl 4 mg 09/07/20 23:38 Ondansetron Hcl 4 Mg/2 Ml Vial IVPUSH Q8H PRN Nausea and Vomiting Phenobarbital 45 mg 09/08/20 21:00 Phenobarbital 15 Mg Tablet PO 09/10/20 09:01 BID [facility] Protocol Phenobarbital 30 mg 09/10/20 21:00 Phenobarbital 30 Mg Tablet PO 09/12/20 09:01 BID [facility] Protocol Phenobarbital 30 mg 09/13/20 09:00 Phenobarbital 30 Mg Tablet PO 09/14/20 09:01 DAILY [facility] Protocol Sodium Chloride 3 ml 09/08/20 00:00 09/08/20 15:14 0.9 % Sodium Chloride Flush 3 Ml Syringe IVFLUSH 3 ml QSHIFT [facility] Administration Labs CBC & Chem 7: 09/08/20 05:52 09/08/20 05:53 Assessment and Plan (1) Alcohol abuse: Status: Acute (2) Pancreatitis, alcoholic, acute: Status: Acute (3) Suicidal ideation: Status: Acute (4) Bipolar 1 disorder: Status: Acute (5) Lactic acidosis: Status: Acute Assessment and Plan: 44-year-old female with alcohol abuse who presents to the hospital with abdominal pain, and suicidal ideation found to have acute pancreatitis 1.acute pancreatitis secondary to alcohol abuse: has elevated lipase, abdominal pain continue IV fluids, patient is feeling hungry therefore will start her on clear liquid diet, antiemetics, and pain management 2.alcohol abuse with significant potential to withdrawal: Continue phenobarbital, thiamine, folic acid. 3. lactic acidosis- Noted to be thought:possibly secondary to alcohol abuse and starvation ketosis Improving with hydration, will stop further lactic acidosis. 4. Uncontrolled hypertension/ elevated troponin: 2nd troponin is not greater than 50% increases probably mild troponin leak secondary to uncontrolled hypertension. she patient previously used to take lisinopril. will add labetalol, aspirin, monitor if patient has any chest pain then will consider repeating EKG and troponin. Otherwise further workup out patiently.
[2020-09-08] MEDS: PHENobarbitaL 15 MG TABLET 45 MG PO (21:42)
[2020-09-09] MEDS: Lactated Ringers 1,000 ML 100 ML IVCONT ×2 (02:57→13:19)
[2020-09-09 04:00] VITALS: BP 155/86; PULSE 90; RESP 18; TEMP 36.7; O2SAT 95
[2020-09-09 06:00] VITALS: BMI 43.8
[2020-09-09 07:39] VITALS: BP 180/80; PULSE 89; RESP 20; TEMP 36.8; O2SAT 95
[2020-09-09] MEDS: PHENobarbitaL 15 MG TABLET 45 MG PO ×2 (10:00→21:50)
[2020-09-09] MEDS: Aspirin Enteric Coated 81 MG TABLET.DR PO (10:01)
[2020-09-09] MEDS: amLODIPine Besylate 2.5 MG TABLET PO (10:01)
[2020-09-09] MEDS: Labetalol HCL 200 MG TABLET PO ×3 (10:02→21:51)
[2020-09-09] MEDS: ondansetron HCL 4 MG/2 ML VIAL IVPUSH (10:03)
[2020-09-09 12:00] VITALS: BP 145/66; PULSE 75; RESP 20; TEMP 36.8; O2SAT 98
--- NOTE | 2020-09-09 13:56 | HO.PM.IMPN ---
Subjective Subjective Date of Service: 09/09/20 Interval History: alcohol withdrawal Review of Systems denies any chest pain or shortness of breath, still has tremor and feeling slightly dizzy today. Also has nausea Physical Exam Vital Signs: Vital Signs: Vital Signs Temp Pulse Resp BP Pulse Ox 09/09/20 12:00 98.2 F 75 20 145/66 H 98 09/09/20 07:39 98.2 F 89 20 180/80 H 95 09/09/20 04:00 98.1 F 90 18 155/86 H 95 09/08/20 23:45 98.5 F 89 18 148/82 H 94 09/08/20 21:43 91 145/88 H 09/08/20 20:42 98.2 F 93 142/88 H 97 09/08/20 15:14 92 140/99 H 09/08/20 15:06 97.1 F 92 18 140/90 H 95 Body Mass Index 43.8 physical exam: cvs: rrr, [id number] , no murmur res: clear to auscultation ,no rhonchii or wheezing abd: no rebound or guarding ,nt, bs present. ext pulses present , no cyanosis neuro: still tremulous Objective Data Current Medications Generic Name Dose Route Start Last Admin Trade Name Freq PRN Reason Stop Dose Admin Acetaminophen 650 mg 09/07/20 23:38 09/08/20 03:32 Acetaminophen 325 Mg Tablet PO 650 mg Q6H PRN Administration Pain, Mild (Pain Scale 1-3) Amlodipine Besylate 2.5 mg 09/09/20 09:00 09/09/20 10:01 Amlodipine Besylate 2.5 Mg Tablet PO 2.5 mg DAILY PO Administration Protocol Aspirin 81 mg 09/08/20 09:00 09/09/20 10:01 Aspirin Enteric Coated 81 Mg Tablet.Dr PO 81 mg DAILY PO Administration Docusate Sodium 100 mg 09/07/20 23:38 Docusate Sodium 100 Mg Capsule PO DAILY PRN Constipation Enoxaparin Sodium 40 mg 09/07/20 23:38 09/08/20 23:52 Enoxaparin Sodium 40 Mg/0.4 Ml Syringe SUBCUT 40 mg Q24H PO Administration Lactated Ringer's 1,000 mls @ 100 mls/hr 09/08/20 09:30 09/09/20 13:19 Lr IVCONT 100 mls/hr .Q10H [facility] Administration Labetalol HCl 200 mg 09/09/20 09:00 09/09/20 10:02 Labetalol Hcl 200 Mg Tablet PO 200 mg TID [facility] Administration Protocol Medication 1 each 09/08/20 09:00 No Benzodiazepines MISCELLANE DAILY [facility] Ondansetron HCl 4 mg 09/07/20 23:38 09/09/20 10:03 Ondansetron Hcl 4 Mg/2 Ml Vial IVPUSH 4 mg Q8H PRN Administration Nausea and Vomiting Phenobarbital 45 mg 09/08/20 21:00 09/09/20 10:00 Phenobarbital 15 Mg Tablet PO 09/10/20 09:01 45 mg BID [facility] Administration Protocol Phenobarbital 30 mg 09/10/20 21:00 Phenobarbital 30 Mg Tablet PO 09/12/20 09:01 BID [facility] Protocol Phenobarbital 30 mg 09/13/20 09:00 Phenobarbital 30 Mg Tablet PO 09/14/20 09:01 DAILY [facility] Protocol Sodium Chloride 3 ml 09/08/20 00:00 09/09/20 10:02 0.9 % Sodium Chloride Flush 3 Ml Syringe IVFLUSH Not Given QSHIFT [facility] Labs CBC & Chem 7: 09/08/20 05:52 09/08/20 05:53 Microbiology Microbiology Results: Microbiology 09/07/20 19:58 Blood - Venous Blood Culture - Preliminary No growth after 24 hours. 09/07/20 19:58 Blood - Venous Blood Culture - Preliminary No growth after 24 hours. Assessment and Plan (1) Pancreatitis, alcoholic, acute: Status: Acute (2) Alcohol abuse: Status: Acute (3) Suicidal ideation: Status: Acute (4) Bipolar 1 disorder: Status: Acute (5) Lactic acidosis: Status: Acute Assessment and Plan: 44-year-old female with alcohol abuse who presents to the hospital with abdominal pain, and suicidal ideation found to have acute pancreatitis 1.acute pancreatitis secondary to alcohol abuse: has elevated lipase, abdominal pain continue IV fluids, still feel nauseous so will continue clear liquid diet , antiemetics, and pain management 2.alcohol abuse with significant potential to withdrawal: Continue phenobarbital, thiamine, folic acid. 3. lactic acidosis- Noted to be thought:possibly secondary to alcohol abuse and starvation ketosis Improving with hydration, will stop further lactic acidosis. 4. Uncontrolled hypertension/ elevated troponin: 2nd troponin is not greater than 50% increases probably mild troponin leak secondary to uncontrolled hypertension. she patient previously used to take lisinopril. continue labetalol, aspirin, also added amlodipine. cardio eval in am
--- NOTE | 2020-09-09 14:15 | MHC.CM.PN ---
Psych placement appears to be the plan for dc and CM will continue to follow.
[2020-09-09 15:49] VITALS: BP 145/70; PULSE 88; RESP 20; TEMP 36.8; O2SAT 98
[2020-09-09 16:44] LABS: Alanine Aminotransferase 72 U/L (0-31); Albumin Level 3.3 g/dL (3.5-5.0); Alkaline Phosphatase 86 U/L (39-117); Aspartate Amino Transferase 91 U/L (5-31); Bilirubin Direct 0.4 mg/dL (0.0-0.5); Bilirubin Total 0.8 mg/dL (0.0-1.0); Total Protein 6.1 g/dL (6.5-8.0)
[2020-09-09] MEDS: 0.9 % Sodium Chloride Flush 3 ML SYRINGE IVFLUSH ×2 (17:36→22:53)
[2020-09-09 19:16] VITALS: BP 156/98; PULSE 88; RESP 19; TEMP 36.6; O2SAT 96
[2020-09-09] MEDS: Enoxaparin Sodium 40 MG/0.4 ML SYRINGE SUBCUT (21:51)
[2020-09-09 23:18] VITALS: BP 138/80; PULSE 86; RESP 19; TEMP 36; O2SAT 95
[2020-09-10] VITALS (8 sets, daily range): BP systolic 140–168; BP diastolic 84–110; PULSE 80–94; RESP 16–19; TEMP 35.8–36.9; O2SAT 95–98; BMI 43.8
[2020-09-10] MEDS: Lactated Ringers 1,000 ML 100 ML IVCONT ×3 (02:17→20:29)
[2020-09-10 06:57] LABS: Hematocrit 39.7 % (37-47); Hemoglobin 13.4 g/dl (12.0-16.0); Mean Corpuscular HGB Conc 33.8 g/dl (31.0-35.0); Mean Corpuscular Hemoglobin 32.4 pg (27.0-33.0); Mean Corpuscular Volume 95.9 fL (80-98); Mean Platelet Volume 11.5 fL (9.4-12.3); Red Blood Count 4.14 X10*6/uL (4.20-5.50); Red Cell Distribution Width 13.9 % (11.0-16.0)
[2020-09-10 07:08] LABS: Anion Gap 12 (12-20); Carbon Dioxide 27 mmol/L (22-29); Chloride 101 mmol/L (96-108); Creatinine Clr Calc Pharmacy 132.2; Estimated Glomerular Filt Rate > 60; Glucose Random 121 mg/dL (60-115); Potassium 3.1 mmol/l (3.3-5.1); Sodium 137 mmol/L (135-145)
[2020-09-10 07:10] LABS: Platelet Count 77 X10*3/uL (160-400); White Blood Count 2.3 X10*3/uL (4.8-10.8)
[2020-09-10 07:26] LABS: Blood Urea Nitrogen 3 mg/dL (9-16); Calcium 7.8 mg/dL (8.4-10.2)
[2020-09-10] MEDS: PHENobarbitaL 15 MG TABLET 45 MG PO (09:07)
[2020-09-10] MEDS: amLODIPine Besylate 2.5 MG TABLET PO (09:08)
[2020-09-10] MEDS: Labetalol HCL 200 MG TABLET PO ×3 (09:08→21:48)
[2020-09-10] MEDS: 0.9 % Sodium Chloride Flush 3 ML SYRINGE IVFLUSH ×2 (09:08→15:29)
[2020-09-10] MEDS: Aspirin Enteric Coated 81 MG TABLET.DR PO (09:09)
--- NOTE | 2020-09-10 11:47 | HO.PM.IMPN ---
Subjective Subjective Date of Service: 09/10/20 Interval History: 44-year-old female with alcohol abuse who presents to the hospital with abdominal pain, and suicidal ideation. pt. feels hungry denies nausea,no abdominal pain.feels anxious, no other acute issues overnight. Review of Systems [employer] no day,no dizziness CVS no cp SKIn no rash Physical Exam Vital Signs: Vital Signs: Vital Signs Temp Pulse Resp BP Pulse Ox 09/10/20 09:08 94 160/110 H 09/10/20 08:00 98.5 F 94 16 160/110 H 95 09/10/20 03:07 96.9 F 80 19 168/87 H 96 09/09/20 23:18 96.8 F 86 19 138/80 95 09/09/20 19:16 97.8 F 88 19 156/98 H 96 09/09/20 15:49 98.2 F 88 20 145/70 H 98 09/09/20 12:00 98.2 F 75 20 145/66 H 98 Body Mass Index 43.8 physical exam: cvs: rrr, no murmur res: clear to auscultation ,no rhonchii or wheezing abd: abd soft,no rebound or guarding , bs present. ext pulses present , no cyanosis neuro: no tremors Objective Data Current Medications Generic Name Dose Route Start Last Admin Trade Name Freq PRN Reason Stop Dose Admin Acetaminophen 650 mg 09/07/20 23:38 09/08/20 03:32 Acetaminophen 325 Mg Tablet PO 650 mg Q6H PRN Administration Pain, Mild (Pain Scale 1-3) Amlodipine Besylate 2.5 mg 09/09/20 09:00 09/10/20 09:08 Amlodipine Besylate 2.5 Mg Tablet PO 2.5 mg DAILY PO Administration Protocol Aspirin 81 mg 09/08/20 09:00 09/10/20 09:09 Aspirin Enteric Coated 81 Mg Tablet.Dr PO 81 mg DAILY PO Administration Docusate Sodium 100 mg 09/07/20 23:38 Docusate Sodium 100 Mg Capsule PO DAILY PRN Constipation Enoxaparin Sodium 40 mg 09/07/20 23:38 09/09/20 21:51 Enoxaparin Sodium 40 Mg/0.4 Ml Syringe SUBCUT 40 mg Q24H PO Administration Lactated Ringer's 1,000 mls @ 100 mls/hr 09/08/20 09:30 09/10/20 11:05 Lr IVCONT 100 mls/hr .Q10H [facility] Administration Labetalol HCl 200 mg 09/09/20 09:00 09/10/20 09:08 Labetalol Hcl 200 Mg Tablet PO 200 mg TID [facility] Administration Protocol Medication 1 each 09/08/20 09:00 No Benzodiazepines MISCELLANE DAILY [facility] Ondansetron HCl 4 mg 09/07/20 23:38 09/09/20 10:03 Ondansetron Hcl 4 Mg/2 Ml Vial IVPUSH 4 mg Q8H PRN Administration Nausea and Vomiting Phenobarbital 30 mg 09/10/20 21:00 Phenobarbital 30 Mg Tablet PO 09/12/20 09:01 BID [facility] Protocol Phenobarbital 30 mg 09/13/20 09:00 Phenobarbital 30 Mg Tablet PO 09/14/20 09:01 DAILY [facility] Protocol Potassium Chloride 40 meq 09/10/20 11:45 Potassium Chloride 20 Meq Packet PO 09/10/20 11:46 ONCE ONE Sodium Chloride 3 ml 09/08/20 00:00 09/10/20 09:08 0.9 % Sodium Chloride Flush 3 Ml Syringe IVFLUSH 3 ml QSHIFT [facility] Administration Labs CBC & Chem 7: 09/10/20 05:51 09/10/20 05:51 Microbiology Microbiology Results: Microbiology 09/07/20 19:58 Blood - Venous Blood Culture - Preliminary No growth after 48 hours. 09/07/20 19:58 Blood - Venous Blood Culture - Preliminary No growth after 48 hours. Assessment and Plan (1) Elevated LFTs: Status: Acute (2) Alcohol withdrawal: Status: Acute (3) Suicidal ideation: Status: Acute (4) Alcohol abuse: Status: Acute (5) Bipolar 1 disorder: Status: Acute (6) Lactic acidosis: Status: Acute Assessment and Plan: 44-year-old female with alcohol abuse who presents to the hospital with abdominal pain, and suicidal ideation 1.elevated lfts secondary to alcohol abuse: no abd pain, nausea, vomiting improved will advance diet to regular if tolerate po will dc IV fluids, follow labs and continue supportive care. 2.alcohol abuse with significant potential to withdrawal: Continue phenobarbital, thiamine,and folic acid.less tremors 3. lactic acidosis- possibly secondary to alcohol abuse and starvation ketosis,now resolved. 4. Uncontrolled hypertension/ elevated troponin: 2nd troponin is not greater than 50% increases,no cp probably mild troponin leak secondary to uncontrolled hypertension. patient previously used to take lisinopril, continue labetalol, aspirin, will increase dose of amlodipine.med reconciliation not done will request nurse to do it. 5.Hypokalemia will replace and follow labs 6. Suicidal ideation once tolerate po will consult [email or web address]
[2020-09-10] MEDS: Enoxaparin Sodium 40 MG/0.4 ML SYRINGE SUBCUT (21:47)
[2020-09-10] MEDS: PHENobarbitaL 30 MG TABLET PO (21:50)
[2020-09-11 00:31] VITALS: BP 140/80; PULSE 88; RESP 18; TEMP 36.9; O2SAT 96
[2020-09-11] MEDS: 0.9 % Sodium Chloride Flush 3 ML SYRINGE IVFLUSH ×2 (00:56→08:12)
[2020-09-11 04:32] VITALS: BP 160/90; PULSE 88; RESP 20; TEMP 36.7; O2SAT 95
[2020-09-11] MEDS: Lactated Ringers 1,000 ML 100 ML IVCONT (05:38)
[2020-09-11 06:00] VITALS: BMI 43.4
[2020-09-11 07:22] LABS: Alanine Aminotransferase 61 U/L (0-31); Albumin Level 3.5 g/dL (3.5-5.0); Alkaline Phosphatase 84 U/L (39-117); Anion Gap 10 (12-20); Aspartate Amino Transferase 69 U/L (5-31); Bilirubin Direct 0.4 mg/dL (0.0-0.5); Blood Urea Nitrogen 7 mg/dL (9-16); Carbon Dioxide 29 mmol/L (22-29); Chloride 102 mmol/L (96-108); Creatinine Clr Calc Pharmacy 137.1; Estimated Glomerular Filt Rate > 60; Glucose Random 106 mg/dL (60-115); Sodium 138 mmol/L (135-145); Total Protein 6.2 g/dL (6.5-8.0)
[2020-09-11 07:33] VITALS: BP 158/78; PULSE 81; RESP 18; TEMP 36.6; O2SAT 95
[2020-09-11 08:12] VITALS: BP 158/78; PULSE 81
[2020-09-11] MEDS: amLODIPine Besylate 2.5 MG TABLET 5 MG PO (08:12)
[2020-09-11 08:13] VITALS: BP 158/78; PULSE 81
[2020-09-11] MEDS: Labetalol HCL 200 MG TABLET PO (08:13)
[2020-09-11] MEDS: Aspirin Enteric Coated 81 MG TABLET.DR PO (08:13)
[2020-09-11] MEDS: PHENobarbitaL 30 MG TABLET PO (08:13)
[2020-09-11 12:26] LABS: Potassium 3.8 mmol/l (3.3-5.1)
--- NOTE | 2020-09-11 13:02 | MHC.CM.PN ---
DC order says home, self care.
--- NOTE | 2020-09-11 13:07 | PM.DS ---
DS: Providers Provider Date of admission: 09/07/20 22:01 Primary care physician: Tiffany Bass MD Consults: 09/07/20 17:15 Consult to Crisis Stat Reason for consultation: si 09/07/20 18:25 Consult to Care Team Stat Comment: Reason for consultation: SI DS: Diagnosis Discharge Diagnosis (1) Elevated LFTs: Status: Acute (2) Alcohol withdrawal: Status: Acute (3) Suicidal ideation: Status: Acute (4) Alcohol abuse: Status: Acute (5) Bipolar 1 disorder: Status: Acute (6) Lactic acidosis: Status: Acute DS: Summary Hospital Course Hospital Course: 44-year-old female with alcohol abuse who presents to the hospital with abdominal pain, and suicidal ideation. 1.elevated lfts secondary to alcohol abuse: no abd pain, nausea, vomiting improved, patient tolerating diet strongly advised to abstain from alcohol, follow LFTs as outpatient. 2.alcohol abuse with significant potential to withdrawal: patient treated with phenobarbital, thiamine,and folic acid seen by care team patient has a sponsor, strongly recommend to abstain from alcohol, support provided. 3. lactic acidosis- possibly secondary to alcohol abuse and starvation ketosis,now resolved. 4. Uncontrolled hypertension/ elevated troponin: 2nd troponin is not greater than 50% increases,no cp, no further workup initiated patient was not taking her home medications, recommended patient to resume home medication during hospitalization patient was treated with labetalol and Norvasc. 5.Hypokalemia Replaced and resolved. 6. Suicidal ideation seen by [facility] in and they have cleared patient to be discharged home patient has outpatient counselor. Return to work note given. Time Spent with Patient Time attestation: Total time spent providing and/or coordinating discharge services: Physical Exam Vital Signs: Vital Signs: Vital Signs Temp Pulse Resp BP Pulse Ox 09/11/20 08:13 81 158/78 H 09/11/20 08:12 81 158/78 H 09/11/20 07:33 97.8 F 81 18 158/78 H 95 09/11/20 04:32 98.0 F 88 20 160/90 H 95 09/11/20 00:31 98.4 F 88 18 140/80 H 96 09/10/20 21:48 91 166/100 H 09/10/20 19:06 96.5 F L 90 19 167/84 H 96 09/10/20 15:28 89 146/84 H 09/10/20 15:06 98.2 F 89 18 146/84 H 96 Body Mass Index 43.4 General patient resting comfortably in no acute distress. Neck is supple no JVD. CVS regular rate rhythm, Respiratory lungs clear to auscultation, no respiratory distress, no wheeze, no rhonchi. Gastrointestinal abdomen soft, nontender, bowel sounds audible, no no guarding , no rigidity. Extremities no clubbing cyanosis or edema. Neuro nonfocal patient moving all 4 extremity speech clear. Skin no rash DS: Data Data Completed and Pending Labs on day of discharge: Labs from last 24 hours 09/11/20 09/11/20 09/10/20 11:54 05:52 05:51 Smear Path Review SEE NOTE Sodium 138 Potassium 3.8 D 3.0 L Chloride 102 Carbon Dioxide 29 Anion Gap 10 L BUN 7 L D Creatinine 0.69 Estim Creat Clear Calc 137.1 Estimated GFR > 60 Random Glucose 106 Calcium 8.0 L Total Bilirubin 1.0 Direct Bilirubin 0.4 AST 69 H ALT 61 H Alkaline Phosphatase 84 Total Protein 6.2 L Albumin 3.5 Preliminary micro results at discharge 09/07/20 19:58 Blood Culture - Preliminary Blood - Venous No growth after 48 hours. 09/07/20 19:58 Blood Culture - Preliminary Blood - Venous No growth after 48 hours. Discharge Plan Discharge Patient Disposition: Home, Self-Care Referrals: Tiffany Bass MD [Primary Care Provider] - Discharge Medications: Continued clonidine HCl 0.1 mg tablet 1 tab PO BEDTIME RF: 0 atenolol-chlorthalidone 100-25 mg tablet 1 tab PO DAILY RF: 0 amlodipine 5 mg tablet 1 tab PO DAILY RF: 0 Discharge Orders: Discharge Order (Routine); Ordered 09/11/20 Ordered By: Anca Brown Diet: advance to your usual diet and regular diet Activity on Discharge: As tolerated Stand Alone Forms: Work/School Release Visit Report Forms: Patient Portal Discharge page Care Plan Goals: strongly recommend to abstain from alcohol, outpatient follow-up with PCP Health Concerns: as per discharge plan Plan of Treatment: outpatient follow-up with primary care physician, counselor and sponsor.
== END 2020-09-11 13:33 | disposition home or self-care (01) | DRG 425 ==
LOC: HO.ED 21:49 → HO.IMC 22:18
PROVIDERS: Internal Medicine; Nurse Practitioner Family; Physician Assistant; Admitting Provider Internal Medicine; Emergency Provider Emergency Medicine; PCP Internal Medicine; Visit Provider Hospitalist
DX: E87.6 Hypokalemia (principal); E87.2 Acidosis; R45.851 Suicidal ideations; F10.10 Alcohol abuse, uncomplicated; F43.10 Post-traumatic stress disorder, unspecified; I10 Essential (primary) hypertension; Z79.899 Other long term (current) drug therapy
CPT/HCPCS: 36415; 74176; 80048; 80053; 80076; 80307; 80320; 81025; 83605; 84132; 84443; 84484; 85025; 85027; 85060; 87040; 93005; 96361; 96374; 99285; 99291; J1650; J2060; J2405; J2560

== ENCOUNTER 2020-10-04 15:45 | Inpatient (IN) | payer OTHER, SELFPAY ==
[2020-10-04 15:54] VITALS: BP 121/95; BP 165/103; PULSE 101; PULSE 95; RESP 20; TEMP 36.8; O2SAT 96; BMI 43.5
--- NOTE | 2020-10-04 16:06 | ED_ITS ---
HPI - General Adult General Chief complaint: ETOH/Substance Use Stated complaint: ETOH,WITHDRAWALS Time Seen by Provider: 10/04/20 16:01 Source: patient Mode of arrival: EMS Limitations: no limitations History of Present Illness HPI narrative: Patient comes to the emergency room complaining of alcohol intoxication. Patient states she recently had a relapse couple of weeks ago, she has been drinking daily. Patient was drinking alcohol today, her family called EMS, requesting that the patient gets help. Patient agrees with plan. Patient is crying, states she is ashamed of herself. Patient is not withdrawing . Patient is requesting Behavioral Health. Patient states she does not have any diagnosis of psychological disorders, but she suspects she has depression and wants to be evaluated. per previous records, patient has been diagnosed with bipolar 1 disorder, PTSD, and has had suicidal ideation in the past MD complaint: Alcohol abuse Related Data Home Medications Medication Instructions Recorded Confirmed amlodipine 1 tab PO DAILY 09/11/20 09/11/20 atenolol-chlorthalidone 1 tab PO DAILY 09/11/20 09/11/20 Previous Rx's Medication Instructions Recorded clonidine HCl 0.1 mg tablet 0.1 mg PO BEDTIME #30 tab 09/14/20 Allergies Allergy/AdvReac Type Severity Reaction Status Date / Time trazodone [Trazodone] Allergy Severe SWELLING Verified 09/07/20 14:37 oseltamivir Allergy Unknown Unknown Verified 09/07/20 14:37 Review of Systems Review of Systems: Constitutional : No Weight loss, No Fever, No Chills, No Night Sweats, No Fatigue, No Malaise ENT/Mouth : No Hearing loss, No Ear Pain, No Nasal Congestion, No Sinus Pain, No Hoarseness, No sore throat, No Rhinorrhea, No Swallowing Difficulty Eyes: No Eye Pain, No Swelling, No Redness, No Foreign Body, No Discharge, No Vision Changes Cardiovascular : No Chest Pain, No SOB, No Dyspnea on Exertion, No Orthopnea, No Edema, No Palpitations Respiratory : No Cough, No Sputum, No Wheezing, No Smoke Exposure, No Dyspnea Gastrointestinal : No Nausea, No Vomiting, No Diarrhea, No Constipation, No abdominal Pain, No Hematochezia, No Melena Genitourinary : no irregular bleeding, No Dysuria, No Urinary Frequency, No Hematuria, No Urinary Incontinence, No Urgency, No Flank Pain, No Urinary Flow Changes, No Hesitancy Musculoskeletal : No joint pain, No Myalgias, No Joint Swelling Skin : No Skin Lesions, No rash Neuro : No Weakness, No Numbness, No Paresthesias, No Loss of Consciousness, No Dizziness, No Headache Psych : denies suicidal or homicidal ideation, patient feeling anxious, depre ssed Heme/Lymph: No Bruising, No Bleeding,No Lymphadenopathy Endocrine : No Polyuria, No Polydipsia, No Temperature Intolerance [facility] Past Medical History Medical History Alcohol abuse Alcohol withdrawal Bipolar 1 disorder Depression ETOH abuse HTN (hypertension) PTSD (post-traumatic stress disorder) Suicidal ideation Social History Social History Household Members: Family Housing: House Alcohol intake: current Alcohol intake frequency: 3 or more drinks per day Alcohol type: hard liquor Smoking Status: Current every day smoker Smoked in Last 30 Days: No Use of substances other than those prescribed or required for medical reasons: No Advance Directives: No Advance Directives Information Provided: Yes service: No Physical Exam Vital Signs: Vital Signs: Last Vital Signs Temp 97.7 F 10/05/20 00:00 Pulse 98 10/05/20 00:00 Resp 18 10/05/20 00:00 BP 142/96 H 10/05/20 00:00 Pulse Ox 98 10/05/20 00:00 Body Mass Index 43.5 Appearance: Alert. Oriented X3. crying, cooperative Eyes: Pupils equal, round and reactive to light. ENT: Pharynx normal. Neck: Normal inspection. Neck supple. No lymph nodes noted. No crepitus CVS: Normal heart rate and rhythm. Pulses normal. Normal S1 and S2 Respiratory: No respiratory distress. Breath sounds normal. No Wheezing. No rales Abdomen: Soft and nontender. No rigidity. No distention. good BS x4, severe obesity Skin: Skin warm and dry. Normal skin color. Normal skin turgor. Extremities: No lower extremity edema. No lower extremity edema. No Lacerations. No Rash Neuro: Oriented X 3. No motor deficit. No sensory deficit. Moving all extermities. No slurred speech. Course Course Course Narrative: patient is intoxicated but more sober than on arrival, discussed with the patient that she has elevated liver enzymes, hepatitis panel and Tylenol levels still pending. Patient will need follow-up with Gastroenterology. I discussed the above-mentioned with our hospitalist, at this time the patient does not be to be admitted, patient can be managed outpatient A need to be referred to gastroenterology Medical Decision Making Lab Data Result diagrams: 10/04/20 17:04 10/04/20 17:04 Labs: Lab Results 10/04/20 10/04/20 10/04/20 Range/Units 17:04 17:04 17:04 WBC 4.4 L (4.8-10.8) X10*3/uL RBC 5.51 H D (4.20-5.50) X10*6/uL Hgb 17.4 H D (12.0-16.0) g/dl Hct 50.9 H D (37-47) % MCV 92.4 (80-98) fL MCH 31.6 (27.0-33.0) pg MCHC 34.2 (31.0-35.0) g/dl RDW 13.1 (11.0-16.0) % Plt Count 129 L D (160-400) X10*3/uL MPV 9.8 (9.4-12.3) fL Immature Gran % (Auto) 0.0 (0.0-0.4) % Neut % (Auto) 51.7 (45-73) % Lymph % (Auto) 42.2 H (20-40) % [place] % (Auto) 5.7 (2-11) % Eos % (Auto) 0.2 (0-4) % Baso % (Auto) 0.2 (0-2) % Lymph # (Auto) 1.9 (1.2-4.9) X10*3/uL [place] # (Auto) 0.3 (0.1-1.2) X10*3/uL Eos # (Auto) 0.0 (0.0-0.4) X10*3/uL Baso # (Auto) 0.0 (0.0-0.2) X10*3/uL Abs Immat Gran (auto) 0.00 (0.00-0.03) X10*3/uL Absolute Neuts (auto) 2.3 (2.0-8.3) X10*3/uL Absolute Nucleated RBC 0.000 (0.0-0.012) X10*3/uL Nucleated RBC % (auto) 0.0 (0.0-0.2) /100WBC Smear Tech's Comments VERIFIED Sodium 138 (135-145) mmol/L Potassium 3.8 (3.3-5.1) mmol/l Chloride 97 (96-108) mmol/L Carbon Dioxide 31 H (22-29) mmol/L Anion Gap 14 (12-20) BUN 8 L (9-16) mg/dL Creatinine 0.76 (0.5-1.4) mg/dL Estim Creat Clear Calc 123.4 Estimated GFR > 60 Random Glucose 181 H D (60-115) mg/dL Calcium 8.0 L (8.4-10.2) mg/dL Total Bilirubin 2.3 H (0.0-1.0) mg/dL Direct Bilirubin 1.7 H (0.0-0.5) mg/dL AST 829 H (5-31) U/L ALT 1500 H (0-31) U/L Alkaline Phosphatase 246 H D (39-117) U/L Total Protein 6.9 (6.5-8.0) g/dL Albumin 3.7 (3.5-5.0) g/dL Lipase 104 H (8-78) U/L Urine Color Urine Appearance Urine pH (5.0-8.0) Ur Specific [place] (1.005-1.025) Urine Protein (NEG-TRACE) MG/DL Urine Glucose (UA) (NEG) MG/DL Urine Ketones (NEG) MG/DL Urine Blood (NEG) Urine Nitrite (NEG) Ur Leukocyte Esterase (NEG) Urine RBC (0) /HPF Urine WBC (0-4) /HPF Ur Squamous Epith Cells /LPF Urine Bacteria /LPF Urine Test (NEGATIVE) Urine Opiates Screen (Not Detect) Acetaminophen (<30) mcg/mL Ur Barbiturates Screen (Not Detect) Ur Phencyclidine Scrn (Not Detect) Ur Amphetamines Screen (Not Detect) U Benzodiazepines Scrn (Not Detect) Urine Cocaine Screen (Not Detect) U Marijuana (THC) Screen (Not Detect) Ethyl Alcohol 414 H* mg/dL 10/04/20 10/04/20 10/04/20 Range/Units 17:04 17:04 22:28 WBC (4.8-10.8) X10*3/uL RBC (4.20-5.50) X10*6/uL Hgb (12.0-16.0) g/dl Hct (37-47) % MCV (80-98) fL MCH (27.0-33.0) pg MCHC (31.0-35.0) g/dl RDW (11.0-16.0) % Plt Count (160-400) X10*3/uL MPV (9.4-12.3) fL Immature Gran % (Auto) (0.0-0.4) % Neut % (Auto) (45-73) % Lymph % (Auto) (20-40) % [place] % (Auto) (2-11) % Eos % (Auto) (0-4) % Baso % (Auto) (0-2) % Lymph # (Auto) (1.2-4.9) X10*3/uL [place] # (Auto) (0.1-1.2) X10*3/uL Eos # (Auto) (0.0-0.4) X10*3/uL Baso # (Auto) (0.0-0.2) X10*3/uL Abs Immat Gran (auto) (0.00-0.03) X10*3/uL Absolute Neuts (auto) (2.0-8.3) X10*3/uL Absolute Nucleated RBC (0.0-0.012) X10*3/uL Nucleated RBC % (auto) (0.0-0.2) /100WBC Smear Tech's Comments Sodium (135-145) mmol/L Potassium (3.3-5.1) mmol/l Chloride (96-108) mmol/L Carbon Dioxide (22-29) mmol/L Anion Gap (12-20) BUN (9-16) mg/dL Creatinine (0.5-1.4) mg/dL Estim Creat Clear Calc Estimated GFR Random Glucose (60-115) mg/dL Calcium (8.4-10.2) mg/dL Total Bilirubin (0.0-1.0) mg/dL Direct Bilirubin (0.0-0.5) mg/dL AST (5-31) U/L ALT (0-31) U/L Alkaline Phosphatase (39-117) U/L Total Protein (6.5-8.0) g/dL Albumin (3.5-5.0) g/dL Lipase (8-78) U/L Urine Color YELLOW Urine Appearance CLEAR Urine pH 6.5 (5.0-8.0) Ur Specific [place] <= 1.005 (1.005-1.025) Urine Protein NEG (NEG-TRACE) MG/DL Urine Glucose (UA) NEG (NEG) MG/DL Urine Ketones NEG (NEG) MG/DL Urine Blood TRACE (NEG) Urine Nitrite NEG (NEG) Ur Leukocyte Esterase NEG (NEG) Urine RBC 0 (0) /HPF Urine WBC 0 (0-4) /HPF Ur Squamous Epith Cells 1+ /LPF Urine Bacteria 1+ /LPF Urine Test NEGATIVE (NEGATIVE) Urine Opiates Screen Not Detected (Not Detect) Acetaminophen < 1 (<30) mcg/mL Ur Barbiturates Screen POSITIVE H (Not Detect) Ur Phencyclidine Scrn Not Detected (Not Detect) Ur Amphetamines Screen Not Detected (Not Detect) U Benzodiazepines Scrn Not Detected (Not Detect) Urine Cocaine Screen Not Detected (Not Detect) U Marijuana (THC) Screen Not Detected (Not Detect) Ethyl Alcohol mg/dL Imaging Data US - abdomen: Radiologist's impression: PANCREAS: Obscured by bowel gas LIVER: There is mildly enlarged. Right lobe of liver measures 21 cm superior inferior. There is diffuse increased echogenicity of the parenchymal liver due to fatty change. There is no focal liver lesion or intrahepatic bile duct dilatation. GALLBLADDER: Normal. The gallbladder is physiologically distended without evidence of stones, sludge, polyps, wall thickening or pericholecystic fluid. COMMON BILE DUCT: Normal in caliber measuring 0.3 cm in diameter. RIGHT KIDNEY: Normal. No hydronephrosis. No renal calculi or focal parenchymal lesions. The kidney measures 10.9 cm in maximum dimension. FREE FLUID: None. Compared to the prior ultrasound and CAT scan studies there has not been substantial change US/US abdomen limited IMPRESSION: Moderate hepatomegaly. Diffuse fatty change of liver. No gallstone or bile duct dilatation. Discharge Plan Discharge Prescriptions: No Action clonidine HCl 0.1 mg tablet 0.1 mg PO BEDTIME Qty: 30 RF: 3 atenolol-chlorthalidone 100-25 mg tablet 1 tab PO DAILY RF: 0 amlodipine 5 mg tablet 1 tab PO DAILY RF: 0
[2020-10-04 17:12] LABS: Basophils Percent Auto 0.2 % (0-2); Eosinophils Percent Auto 0.2 % (0-4); Hematocrit 50.9 % (37-47); MANUAL DIFF FLAG SCAN; Neutrophils Absolute Auto 2.3 X10*3/uL (2.0-8.3); PLT CLUMP 1; SCAN SMEAR FLAG 1
[2020-10-04 17:14] LABS: Hemoglobin 17.4 g/dl (12.0-16.0); Lymphocytes Absolute Auto 1.9 X10*3/uL (1.2-4.9); Lymphocytes Percent Auto 42.2 % (20-40); Mean Corpuscular HGB Conc 34.2 g/dl (31.0-35.0); Mean Corpuscular Hemoglobin 31.6 pg (27.0-33.0); Mean Corpuscular Volume 92.4 fL (80-98); Mean Platelet Volume 9.8 fL (9.4-12.3); Monocytes Absolute Auto 0.3 X10*3/uL (0.1-1.2); Monocytes Percent Auto 5.7 % (2-11); Neutrophils Percent Auto 51.7 % (45-73); Platelet Count 129 X10*3/uL (160-400); Red Blood Count 5.51 X10*6/uL (4.20-5.50); Red Cell Distribution Width 13.1 % (11.0-16.0); White Blood Count 4.4 X10*3/uL (4.8-10.8)
--- NOTE | 2020-10-04 17:14 | PC.NURSE ---
Pt steady on feet to bathroom with this RN. Also denies SI and states i am too chicken to do it but I would be happy if I didnt wake up Pt is pleasant. Tearful, requesting help and reports I know there is a mental componet
[2020-10-04 17:31] LABS: Glucose Urine UA NEG (NEG); Leukocyte Esterase Urine NEG (NEG); Nitrite Urine NEG (NEG); PH 6.5 (5.0-8.0); Specific Gravity - Urine <= 1.005 (1.005-1.025); Urine Blood TRACE (NEG); Urine Ketones NEG (NEG); Urine Protein NEG (NEG-TRACE)
[2020-10-04 17:33] LABS: Appearance Urine CLEAR; Color Urine YELLOW; SLIDE REVIEW VERIFIED
[2020-10-04 17:34] LABS: UPreg QC Valid YES; Urine Pregnancy NEGATIVE (NEGATIVE)
[2020-10-04 17:38] LABS: Ethanol 414 mg/dL
[2020-10-04 17:41] LABS: Bacteria Urine 1+ /LPF; RBC Urine 0 /HPF (0); Squamous Epithelial Cell Urine 1+ /LPF; WBC Urine 0 /HPF (0-4)
[2020-10-04 17:46] LABS: Alanine Aminotransferase 1500 U/L (0-31); Albumin Level 3.7 g/dL (3.5-5.0); Alkaline Phosphatase 246 U/L (39-117); Anion Gap 14 (12-20); Aspartate Amino Transferase 829 U/L (5-31); Bilirubin Direct 1.7 mg/dL (0.0-0.5); Bilirubin Total 2.3 mg/dL (0.0-1.0); Blood Urea Nitrogen 8 mg/dL (9-16); Carbon Dioxide 31 mmol/L (22-29); Chloride 97 mmol/L (96-108); Creatinine Clr Calc Pharmacy 123.4; Estimated Glomerular Filt Rate > 60; Glucose Random 181 mg/dL (60-115); Potassium 3.8 mmol/l (3.3-5.1); Sodium 138 mmol/L (135-145); Total Protein 6.9 g/dL (6.5-8.0)
[2020-10-04 17:50] LABS: Amphetamine Screen Urine Not Detected (Not Detect); Barbiturates, Urine POSITIVE (Not Detect); Benzodiazepines Screen Urine Not Detected (Not Detect); Cannabinoid Screen Urine Not Detected (Not Detect); Cocaine Screen Urine Not Detected (Not Detect); Opiate Screen Urine Not Detected (Not Detect); Phencyclidine Screen Urine Not Detected (Not Detect)
[2020-10-04 18:00] LABS: Lipase 104 U/L (8-78)
[2020-10-04 18:17] VITALS: BP 136/79; PULSE 96; RESP 16; O2SAT 96
--- NOTE | 2020-10-04 19:14 | PC.NURSE ---
Report taken from Abigail, this RN resuming care. Pt found laying in bed, awake and alert. Per Abigail, pt has a history of ETOH but was sober for 5 years. Pt relapsed 3 weeks ago and has been binge drinking vodka daily since. Pt requesting treatement of alcohol and mental health. aware. Pt speaking with a substance abuse counselor, awaiting plan of care at this time. Continue to monitor.
[2020-10-04 19:26] VITALS: BP 135/81; PULSE 91; RESP 16; O2SAT 95
[2020-10-04 21:04] VITALS: BP 128/65; PULSE 91; RESP 14; TEMP 36.1; O2SAT 98
--- NOTE | 2020-10-04 21:39 | US_ITS ---
EXAMINATION: US ABDOMEN LIMITED CLINICAL INFORMATION: Elevated LFTs. COMPARISON: Ultrasound of abdomen 06/19/2018. CT scan abdomen pelvis 09/07/2020 TECHNIQUE: Real-time imaging of the right upper quadrant abdominal viscera. Color Doppler exam used FINDINGS: PANCREAS: Obscured by bowel gas LIVER: There is mildly enlarged. Right lobe of liver measures 21 cm superior inferior. There is diffuse increased echogenicity of the parenchymal liver due to fatty change. There is no focal liver lesion or intrahepatic bile duct dilatation. GALLBLADDER: Normal. The gallbladder is physiologically distended without evidence of stones, sludge, polyps, wall thickening or pericholecystic fluid. COMMON BILE DUCT: Normal in caliber measuring 0.3 cm in diameter. RIGHT KIDNEY: Normal. No hydronephrosis. No renal calculi or focal parenchymal lesions. The kidney measures 10.9 cm in maximum dimension. FREE FLUID: None. Compared to the prior ultrasound and CAT scan studies there has not been substantial change US/US abdomen limited IMPRESSION: Moderate hepatomegaly. Diffuse fatty change of liver. No gallstone or bile duct dilatation.
[2020-10-04 21:56] VITALS: BP 160/103; PULSE 101; RESP 19; TEMP 36.1; O2SAT 94
--- NOTE | 2020-10-04 22:04 | PC.NURSE ---
patient a&ox3, pt ambulated to bathroom stby assist-pt gait was steady, vitals obtained, pt hypertensive-provider notified, will continue to monitor.
--- NOTE | 2020-10-04 22:29 | MHC.CARE ---
CARE team consult ordered by ED Physician for pt who arrived to ED via EMS intoxicated, with passive suicidal ideation, and seeking detox after a three week long drinking binge. At 17:04 pt's BAL was 414. Due to pt's level of intoxication it was not clinically or medically appropriate for the consult to take place. It is likely that pt will not be sober and/or appropriate to be seen by the CARE team until the morning.
--- NOTE | 2020-10-04 22:44 | PC.NURSE ---
PT TO ULTRASOUND
[2020-10-04 23:05] LABS: Acetaminophen LAB < 1 mcg/mL (<30)
[2020-10-05] VITALS (13 sets, daily range): BP systolic 135–186; BP diastolic 75–132; PULSE 91–134; RESP 14–20; TEMP 36–37.2; O2SAT 90–98
--- NOTE | 2020-10-05 00:51 | PC.NURSE ---
patient resting comfortably in bed no s/s of pain or discomfort alcohol level was 414 @ 1704 awaiting improvement in symptoms
[2020-10-05 02:34] LABS: INTERNATIONAL NORM RATIO 1.3 (0.9-1.1)
--- NOTE | 2020-10-05 03:12 | PC.NURSE ---
patient able to verbalize concerns banana bag started patient tolerating po fluids as well no c/o at this time warm blanket given patient resting
[2020-10-05] MEDS: LORazepam 1 MG TABLET 2 MG PO (05:43)
--- NOTE | 2020-10-05 07:15 | XR_ITS ---
EXAMINATION: XR CHEST CLINICAL INFORMATION: Clinical suspicion for possible aspiration. COMPARISON: Chest radiographs 05/16/2019, 12/07/2012 TECHNIQUE: Portable upright AP view of the chest was obtained. FINDINGS: The lungs are clear. There is no airspace consolidation, atelectasis, or visible effusion. Mild elevation right diaphragm is similar to prior study 05/16/2019. The vascularity is normal. The heart is normal in size. The hilar and mediastinal contours and bony structures are unremarkable. XR/XR chest 1V IMPRESSION: Lungs clear.
[2020-10-05] MEDS: 0.9 % Sodium Chloride 1,000 ML 999 ML IVCONT (08:07)
[2020-10-05 08:39] LABS: HBS Num1 1.82 mIU/mL (0-7.99); HBc Num1 0.17 S/CO (0.00-0.79); Hepatitis B Core Antibody Nonreactive (Nonreactive); Hepatitis B Surface Antigen Negative (Negative); ~HepC Num1 13.86 S/CO (0.00-0.79); ~Hepatitis B Surface Antibody NONREACTIVE (Nonreactive); ~Hepatitis C Antibody Reactive (Nonreactive)
[2020-10-05 08:51] LABS: Magnesium 1.8 mg/dL (1.6-2.6)
[2020-10-05 08:59] LABS: Alanine Aminotransferase 1123 U/L (0-31); Albumin Level 3.2 g/dL (3.5-5.0); Alkaline Phosphatase 204 U/L (39-117); Aspartate Amino Transferase 568 U/L (5-31); Bilirubin Direct 2.1 mg/dL (0.0-0.5); Total Protein 6.1 g/dL (6.5-8.0)
[2020-10-05 09:17] LABS: Lipase 92 U/L (8-78)
--- NOTE | 2020-10-05 10:03 | P.HPHOSP_ITS ---
History of Present Illness Date of Service: 10/05/20 <Goldie Marks NP - Last Filed: 10/05/20 12:46> Chief Complaint: Alcohol withdrawl <Goldie Marks NP - Last Filed: 10/05/20 12:46> 45-year-old woman presenting to the ER with alcohol withdrawal symptoms. She reports that she had been sober for 5 years and relapsed 2 months ago. She drinks quite heavily including more than a pt of vodka a day. She reports that her mother had gotten concerned and suggested that she seek detox. She reported that she has been having some nausea, vomiting more recently. She denied fever, chills, chest pain, shortness of breath, hematemesis or rectal bleeding. Abdominal ultrasound in the ER showed moderate hepatomegaly with diffuse fatty changes of the liver. Her liver enzymes are quite elevated with AST of 829 and ALT of 1500 initially. Alk-phos 246, total bili 2.3. Her liver enzymes did improve some today but her bili did go up to 3.0. She does have a history of hepatitis-C and reported that was treated approximately 3-4 years ago. She does have reactive antibodies for hepatitis-C. Hepatitis-B was negative, hepatitis a pending. She was given a banana bag in the ER as well as another L of IV fluid. She will be admitted for further management treatment of alcohol withdrawal as well as transaminitis /Acute hepatitis <Goldie Marks NP - Last Filed: 10/05/20 12:46> Review of Systems Review of Systems: Denies any recent fever chills or decrease in appetite respiratory denies any shortness of breath coverage production cardiovascular is adjustment of any PND or edema gastrointestinal denies any dysphagia abdominal pain nausea vomiting or diarrhea genitourinary denies any dysuria frequency or hematuria musculoskeletal denies any joint pain or swelling neuropsych denies any weakness or seizures all other systems reviewed are negative <Goldie Marks NP - Last Filed: 10/05/20 12:46> [facility] Medical History: Medical History Alcohol abuse Bipolar 1 disorder COVID-19 Depression HTN (hypertension) PTSD (post-traumatic stress disorder) Suicidal ideation <Goldie Marks NP - Last Filed: 10/05/20 12:46> Functional capacity: independent ambulation <Goldie Marks NP - Last Filed: 10/05/20 12:46> Family History: Family History Mother Endometrial cancer Father Heart disease <Goldie Marks NP - Last Filed: 10/05/20 12:46> Social History: Social History Household Members: Family Housing: House Alcohol intake: current Alcohol intake frequency: 3 or more drinks per day Alcohol type: hard liquor Smoking Status: Current every day smoker Tobacco Type: Cigarette Packs Per Day: 1 Years Smoked: 20 Second Hand Smoke Exposure: Yes service: No Current occupational status: employed <Goldie Marks NP - Last Filed: 10/05/20 12:46> Meds Allergies/Adverse reactions: Allergies Allergy/AdvReac Type Severity Reaction Status Date / Time trazodone [Trazodone] Allergy Severe SWELLING Verified 09/07/20 14:37 oseltamivir Allergy Unknown Unknown Verified 09/07/20 14:37 <Goldie Marks NP - Last Filed: 10/05/20 12:46> Home medications: Home Medications Medication Instructions Recorded Confirmed Type amlodipine 5 mg PO DAILY 09/11/20 10/05/20 History <Goldie Marks NP - Last Filed: 10/05/20 12:46> Physical Exam Vital Signs and Narrative: Vital Signs: Last Vital Signs Temp 98.5 F 10/05/20 07:17 Pulse 94 10/05/20 07:17 Resp 16 10/05/20 07:17 BP 168/96 H 10/05/20 07:17 Pulse Ox 95 10/05/20 07:17 Body Mass Index 43.5 <Goldie Marks NP - Last Filed: 10/05/20 12:46> Appearing in no acute distress, tired appearing head is normocephalic atraumatic eyes pupils are PERRLA sclera is anicteric mouth throat mucous membranes are intact and moist neck is supple no lymphadenopathy, no JVD noted lung sounds are clear to auscultation heart regular rate rhythm, clear S1, S2 positive bowel sounds, abdomen is soft, nontender neuro patient is alert x3, no focal deficits <Goldie Marks NP - Last Filed: 10/05/20 12:46> Results Labs CBC and Chem 7: : 10/09/20 06:11 10/09/20 06:11 <Goldie Kendrick, [employer] - Last Filed: 10/05/20 12:46> Labs: Laboratory Results - last 24 hr 10/04/20 10/04/20 10/04/20 17:04 17:04 17:04 MCV 92.4 MCH 31.6 MCHC 34.2 RDW 13.1 Plt Count 129 L D MPV 9.8 Immature Gran % (Auto) 0.0 Neut % (Auto) 51.7 Lymph % (Auto) 42.2 H [place] % (Auto) 5.7 Eos % (Auto) 0.2 Baso % (Auto) 0.2 Lymph # (Auto) 1.9 [place] # (Auto) 0.3 Eos # (Auto) 0.0 Baso # (Auto) 0.0 Abs Immat Gran (auto) 0.00 Absolute Neuts (auto) 2.3 Absolute Nucleated RBC 0.000 Nucleated RBC % (auto) 0.0 Smear Tech's Comments VERIFIED PT INR Anion Gap 14 Estim Creat Clear Calc 123.4 Estimated GFR > 60 Random Glucose 181 H D Calcium 8.0 L Magnesium Total Bilirubin 2.3 H Direct Bilirubin 1.7 H AST 829 H ALT 1500 H Alkaline Phosphatase 246 H D Total Protein 6.9 Albumin 3.7 Lipase 104 H Urine Color Urine Appearance Urine pH Ur Specific [place] Urine Protein Urine Glucose (UA) Urine Ketones Urine Blood Urine Nitrite Ur Leukocyte Esterase Urine RBC Urine WBC Ur Squamous Epith Cells Urine Bacteria Urine Test Urine Opiates Screen Acetaminophen Ur Barbiturates Screen Ur Phencyclidine Scrn Ur Amphetamines Screen U Benzodiazepines Scrn Urine Cocaine Screen U Marijuana (THC) Screen Ethyl Alcohol 414 H* Hep Bs Antigen Hep Bs Antibody Hep B Core Total Ab Hepatitis C Ab (EIA) 10/04/20 10/04/20 10/04/20 17:04 17:04 22:28 MCV MCH MCHC RDW Plt Count MPV Immature Gran % (Auto) Neut % (Auto) Lymph % (Auto) [place] % (Auto) Eos % (Auto) Baso % (Auto) Lymph # (Auto) [place] # (Auto) Eos # (Auto) Baso # (Auto) Abs Immat Gran (auto) Absolute Neuts (auto) Absolute Nucleated RBC Nucleated RBC % (auto) Smear Tech's Comments PT INR Anion Gap Estim Creat Clear Calc Estimated GFR Random Glucose Calcium Magnesium Total Bilirubin Direct Bilirubin AST ALT Alkaline Phosphatase Total Protein Albumin Lipase Urine Color YELLOW Urine Appearance CLEAR Urine pH 6.5 Ur Specific [place] <= 1.005 Urine Protein NEG Urine Glucose (UA) NEG Urine Ketones NEG Urine Blood TRACE Urine Nitrite NEG Ur Leukocyte Esterase NEG Urine RBC 0 Urine WBC 0 Ur Squamous Epith Cells 1+ Urine Bacteria 1+ Urine Test NEGATIVE Urine Opiates Screen Not Detected Acetaminophen Ur Barbiturates Screen POSITIVE H Ur Phencyclidine Scrn Not Detected Ur Amphetamines Screen Not Detected U Benzodiazepines Scrn Not Detected Urine Cocaine Screen Not Detected U Marijuana (THC) Screen Not Detected Ethyl Alcohol Hep Bs Antigen Negative Hep Bs Antibody NONREACTIVE Hep B Core Total Ab Nonreactive Hepatitis C Ab (EIA) Reactive H 10/04/20 10/05/20 10/05/20 22:28 02:20 08:12 MCV MCH MCHC RDW Plt Count MPV Immature Gran % (Auto) Neut % (Auto) Lymph % (Auto) [place] % (Auto) Eos % (Auto) Baso % (Auto) Lymph # (Auto) [place] # (Auto) Eos # (Auto) Baso # (Auto) Abs Immat Gran (auto) Absolute Neuts (auto) Absolute Nucleated RBC Nucleated RBC % (auto) Smear Tech's Comments PT 16.0 H INR 1.3 H Anion Gap Estim Creat Clear Calc Estimated GFR Random Glucose Calcium Magnesium Total Bilirubin 3.0 H Direct Bilirubin 2.1 H AST 568 H ALT 1123 H Alkaline Phosphatase 204 H Total Protein 6.1 L Albumin 3.2 L Lipase 92 H Urine Color Urine Appearance Urine pH Ur Specific [place] Urine Protein Urine Glucose (UA) Urine Ketones Urine Blood Urine Nitrite Ur Leukocyte Esterase Urine RBC Urine WBC Ur Squamous Epith Cells Urine Bacteria Urine Test Urine Opiates Screen Acetaminophen < 1 Ur Barbiturates Screen Ur Phencyclidine Scrn Ur Amphetamines Screen U Benzodiazepines Scrn Urine Cocaine Screen U Marijuana (THC) Screen Ethyl Alcohol Hep Bs Antigen Hep Bs Antibody Hep B Core Total Ab Hepatitis C Ab (EIA) 10/05/20 08:12 MCV MCH MCHC RDW Plt Count MPV Immature Gran % (Auto) Neut % (Auto) Lymph % (Auto) [place] % (Auto) Eos % (Auto) Baso % (Auto) Lymph # (Auto) [place] # (Auto) Eos # (Auto) Baso # (Auto) Abs Immat Gran (auto) Absolute Neuts (auto) Absolute Nucleated RBC Nucleated RBC % (auto) Smear Tech's Comments PT INR Anion Gap Estim Creat Clear Calc Estimated GFR Random Glucose Calcium Magnesium 1.8 Total Bilirubin Direct Bilirubin AST ALT Alkaline Phosphatase Total Protein Albumin Lipase Urine Color Urine Appearance Urine pH Ur Specific [place] Urine Protein Urine Glucose (UA) Urine Ketones Urine Blood Urine Nitrite Ur Leukocyte Esterase Urine RBC Urine WBC Ur Squamous Epith Cells Urine Bacteria Urine Test Urine Opiates Screen Acetaminophen Ur Barbiturates Screen Ur Phencyclidine Scrn Ur Amphetamines Screen U Benzodiazepines Scrn Urine Cocaine Screen U Marijuana (THC) Screen Ethyl Alcohol Hep Bs Antigen Hep Bs Antibody Hep B Core Total Ab Hepatitis C Ab (EIA) <Goldie Marks NP - Last Filed: 10/05/20 12:46> Imaging Radiologist's Impressions: Impressions Abdomen Ultrasound 10/04/20 21:39 IMPRESSION: Moderate hepatomegaly. Diffuse fatty change of liver. No gallstone or bile duct dilatation. Chest X-Ray 10/05/20 07:15 IMPRESSION: Lungs clear. <Goldie Marks NP - Last Filed: 10/05/20 12:46> Assessment and Plan (1) Alcoholic intoxication: Qualifiers: Complication of substance-induced condition: uncomplicated Qualified Code(s): F10.920 - Alcohol use, unspecified with intoxication, uncomplicated <Goldie Marks NP - Last Filed: 10/05/20 12:46> Status: Acute <Goldie Marks NP - Last Filed: 10/05/20 12:46> (2) Elevated LFTs: Status: Acute <Goldie Marks NP - Last Filed: 10/05/20 12:46> 45-year-old woman admitted with alcohol withdrawal and transaminitis /acute hepatitis. She has a history of hepatitis C in the past and was treated approximately 3 or 4 years ago. She was also noted to be covid positive. Alcohol withdrawal. Will start phenobarbital protocol, IV fluids, encourage oral intake. Thiamine, folic acid, multivitamin . Transaminitis. May be viral related along with alcohol. Consider checking viral load for hepatitis-C, hepatitis-A is pending. GI to follow, hydrate and follow LFTs. Covid 19 positive. No symptoms. Procalcitonin, lactic acid, LDH, Ddimer, ferritin pending. ID consult. Hypertension. Continue home medications. Depression. Continue home medications DVT prophylaxis with Lovenox Discussed with Dr. Ureña Full code <Goldie Marks NP - Last Filed: 10/05/20 12:46>
[2020-10-05] MEDS: PHENobarbitaL sodium 130 MG/ML VIAL 237 MG IM (11:14)
[2020-10-05 11:28] LABS: SARS COV2 PCR INHOUSE POSITIVE (Negative)
--- NOTE | 2020-10-05 12:29 | PC.NURSE ---
pt sleeping sound, arousable to light touch, nc has fallen off agai but sa o2 is 92-97% prone. hospitalist is aware of covid results. skin pwd. awaiting room assignment.
[2020-10-05 13:56] LABS: Lactate Dehydrogenase 433 U/L (122-220)
[2020-10-05] MEDS: PHENobarbitaL sodium 130 MG/ML VIAL 178 MG IM ×2 (14:00→17:14)
[2020-10-05 14:07] LABS: D Dimer 4249 NG/ML
[2020-10-05 14:58] LABS: Ferritin 5955 ng/mL (10-250)
[2020-10-05 15:20] LABS: Procalcitonin 0.24 ng/mL
--- NOTE | 2020-10-05 15:25 | PC.NURSE ---
floor called. Segundo to call back.
--- NOTE | 2020-10-05 16:08 | PC.NURSE ---
christopher called again. unable to answer at this time.
--- NOTE | 2020-10-05 16:35 | PC.NURSE ---
3rd call to christ[place] [facility] answer.
--- NOTE | 2020-10-05 16:37 | PC.NURSE ---
states she was struggling wih mental health and was using etoh for that reason. denies si though. i'm ready to change
--- NOTE | 2020-10-05 16:42 | PC.NURSE ---
rn to rn with Segundo on [facility].
--- NOTE | 2020-10-05 16:47 | PC.NURSE ---
pt has been sleeping mainly during this rn's time. skin pwd. unlabored resp. no cough noted. pt is aware of covid positive status and will notify her family. awaits transfer to floor. no tremors/nausea/headaches
--- NOTE | 2020-10-05 18:24 | PM.EVENT ---
Event Note Date of Service: 10/05/2020 Event Note: This is a 45 yo F who presented to the hospital looking to get help for her heavy alcohol use as well as depression. Was diagnosed with abnormal LFTs which were attributed to her drinking + prior history of hep C (which she reports was treated). Was to be medically admitted for withdrawal and elevated LFTs and as part of her routine admission, a covid screen was done which returned positive. For full details -- see H&P. Patient seen and examined. Case discussed with Goldie Marks NP. Agree with her history and physical. Plan 1. isolate 2. ID consult 3. not hypoxic, no steriods at this time 4. Dimer elevated, multifactorial -- hold off on CTA. VTE in covid likely microthrombi so CTA not to be of much use. If becomes hypoxic / tachycardic with other signs of PE, full dose anticoagulation will be initiated. 5. phenobarb per protocol 6. Depression, she denies any active SI -- denies any plan. Will need eventual psych input 7. Remainder per H&P
[2020-10-05] MEDS: Enoxaparin Sodium 40 MG/0.4 ML SYRINGE SUBCUT ×2 (19:12)
[2020-10-05] MEDS: amLODIPine Besylate 5 MG TABLET PO (19:13)
[2020-10-05] MEDS: Metoprolol Tartrate 12.5 MG HALFTAB PO (20:51)
[2020-10-05] MEDS: PHENobarbitaL sodium 130 MG/ML VIAL IM (20:51)
[2020-10-05] MEDS: cloNIDine HCL 0.1 MG TABLET PO (20:52)
[2020-10-06] VITALS (10 sets, daily range): BP systolic 141–183; BP diastolic 85–100; PULSE 82–98; RESP 18–20; TEMP 36.2–36.9; O2SAT 94–97; BMI 43.5
[2020-10-06] MEDS: 0.9 % Sodium Chloride Flush 3 ML SYRINGE IVFLUSH ×3 (00:55→16:32)
[2020-10-06] MEDS: ondansetron HCL 4 MG/2 ML VIAL IVPUSH ×2 (03:14→11:43)
[2020-10-06 07:07] LABS: Basophils Percent Auto 0.3 % (0-2); Imm Gran Abs Auto 0.01 X10*3/uL (0.00-0.03); Imm Gran Pct Auto 0.3 % (0.0-0.4); MANUAL DIFF FLAG SCAN; PLT CLUMP 1; Red Cell Distribution Width 13.1 % (11.0-16.0); SCAN SMEAR FLAG 1
[2020-10-06 07:09] LABS: Eosinophils Absolute Auto 0.1 X10*3/uL (0.0-0.4); Eosinophils Percent Auto 2.1 % (0-4); Hematocrit 42.3 % (37-47); Hemoglobin 14.2 g/dl (12.0-16.0); Lymphocytes Absolute Auto 1.3 X10*3/uL (1.2-4.9); Lymphocytes Percent Auto 38.1 % (20-40); Mean Corpuscular HGB Conc 33.6 g/dl (31.0-35.0); Mean Corpuscular Hemoglobin 31.6 pg (27.0-33.0); Mean Platelet Volume 11.2 fL (9.4-12.3); Monocytes Absolute Auto 0.3 X10*3/uL (0.1-1.2); Monocytes Percent Auto 7.4 % (2-11); Neutrophils Absolute Auto 1.8 X10*3/uL (2.0-8.3); Neutrophils Percent Auto 51.8 % (45-73); White Blood Count 3.4 X10*3/uL (4.8-10.8)
[2020-10-06 07:39] LABS: Anion Gap 11 (12-20); Blood Urea Nitrogen 10 mg/dL (9-16); Calcium 7.2 mg/dL (8.4-10.2); Carbon Dioxide 30 mmol/L (22-29); Chloride 96 mmol/L (96-108); Estimated Glomerular Filt Rate > 60; Glucose Random 134 mg/dL (60-115); Potassium 3.5 mmol/l (3.3-5.1); Sodium 133 mmol/L (135-145)
[2020-10-06 07:47] LABS: Platelet Count 60 X10*3/uL (160-400)
[2020-10-06 07:48] LABS: SLIDE REVIEW VERIFIED
[2020-10-06] MEDS: Multivitamin TABLET 1 TAB PO (08:18)
[2020-10-06] MEDS: amLODIPine Besylate 5 MG TABLET PO ×2 (08:18→11:38)
[2020-10-06] MEDS: Folic Acid 1 MG TABLET PO (08:18)
[2020-10-06] MEDS: Thiamine HCL 100 MG TABLET PO (08:18)
[2020-10-06] MEDS: PHENobarbitaL 15 MG TABLET 45 MG PO ×2 (08:19→21:11)
--- NOTE | 2020-10-06 09:01 | MHC.CM.PN ---
Female 45 DX ETOH withdrawal She lives w family. She is independent all functional mobility. She is employed part-time. She was here within the past month DX SI and ETOH withdrawal. DP home no services family will provide transportation.
--- NOTE | 2020-10-06 10:27 | HO.PM.IMPN ---
Subjective Subjective Date of Service: 10/06/20 Interval History: Seen in f/u for alcohol withdrawal and covid Postive. Has no covid symptoms, has some tremores and BP rising. ROS: Gen: no fever Resp: no sob, no cough CV: no chest, no THORNE, no leg edema GI: No n/v, no abd pain Neuro: No confusion Psych: some Psychomotor agitation Physical Exam Vital Signs: Vital Signs: Last Vital Signs Temp 97.9 F 10/06/20 08:00 Pulse 93 10/06/20 08:18 Resp 18 10/06/20 08:00 BP 183/99 H 10/06/20 08:18 Pulse Ox 97 10/06/20 08:00 Body Mass Index 43.5 General: AO X 3, no acute distress Resp: CTA bilateral CVS: S1,S2,RRR GI: +BS, NT, no distention Skin: No rash Neuro: motor grossly intact, mild trors Psych: appropriate affect Objective Data Current Medications Generic Name Dose Route Start Last Admin Trade Name Freq PRN Reason Stop Dose Admin Amlodipine Besylate 5 mg 10/06/20 09:00 10/06/20 08:18 Amlodipine Besylate 5 Mg Tablet PO 5 mg DAILY PO Administration Protocol Clonidine HCl 0.1 mg 10/05/20 21:00 10/05/20 20:52 Clonidine Hcl 0.1 Mg Tablet PO 0.1 mg BEDTIME PO Administration Protocol Enoxaparin Sodium 40 mg 10/05/20 18:00 10/05/20 19:12 Enoxaparin Sodium 40 Mg/0.4 Ml Syringe SUBCUT 40 mg Q24H PO Administration Folic Acid 1 mg 10/06/20 09:00 10/06/20 08:18 Folic Acid 1 Mg Tablet PO 1 mg DAILY PO Administration Medication 1 each 10/06/20 09:00 No Benzodiazepines MISCELLANE DAILY PO Multivitamins/Vitamin C 1 tab 10/06/20 09:00 10/06/20 08:18 Multivitamin Tablet PO 1 tab DAILY PO Administration Ondansetron HCl 4 mg 10/05/20 17:42 10/06/20 03:14 Ondansetron Hcl 4 Mg/2 Ml Vial IVPUSH 4 mg Q8H PRN Administration Nausea and Vomiting Pharmacy Consult 1 each 10/05/20 09:08 Consult Rx Perform Med Rec MISCELLANE ONCE PRN Consult order Phenobarbital 45 mg 11/10/20 09:00 10/06/20 08:19 Phenobarbital 15 Mg Tablet PO 10/07/20 21:01 45 mg BID PO Administration Phenobarbital 15 mg 10/08/20 09:00 Phenobarbital 15 Mg Tablet PO 10/09/20 21:01 BID PO Phenobarbital 15 mg 10/10/20 09:00 Phenobarbital 15 Mg Tablet PO 10/11/20 09:01 DAILY PO Sodium Chloride 3 ml 10/05/20 17:42 10/06/20 08:18 0.9 % Sodium Chloride Flush 3 Ml Syringe IVFLUSH 3 ml QSHIFT PO Administration Thiamine HCl 100 mg 10/06/20 09:00 10/06/20 08:18 Thiamine Hcl 100 Mg Tablet PO 100 mg DAILY PO Administration Labs CBC & Chem 7: 10/06/20 06:14 10/06/20 06:14 Assessment and Plan (1) Alcoholic intoxication: Status: Acute (2) Elevated LFTs: Status: Acute Assessment and Plan: 45-year-old woman admitted with alcohol withdrawal and transaminitis /acute hepatitis. She has a history of hepatitis C in the past and was treated approximately 3 or 4 years ago. She was also noted to be covid positive. Alcohol withdrawal. Mild to moderate symptoms at this time. Continu Phenobarbital protocol. CARE team consult Transaminitis. May be viral related along with alcohol. Consider checking viral load for hepatitis-C, hepatitis-A is pending. GI to follow, hydrate and follow LFTs. Covid 19 positive. No symptoms. Procalcitonin, lactic acid, LDH, Ddimer, ferritin pending. ID consult. Hypertension. BP high this morning. continue Noravsc and clonidien and if BP still high increase Norvasc to 10. Depression. Continue home medications DVT prophylaxis with Lovenox
[2020-10-06 11:01] LABS: Alanine Aminotransferase 796 U/L (0-31); Albumin Level 3.1 g/dL (3.5-5.0); Alkaline Phosphatase 220 U/L (39-117); Aspartate Amino Transferase 383 U/L (5-31); Bilirubin Direct 3.4 mg/dL (0.0-0.5); Bilirubin Total 4.9 mg/dL (0.0-1.0); Total Protein 5.7 g/dL (6.5-8.0)
--- NOTE | 2020-10-06 14:25 | W.PM.IDCN ---
History of Present Illness Data of Consult Service Date: 10/06/20 Requesting physician: Erik Sanchez Primary Care Provider: Unknown Physician HPI Reason for consult: COVID She presents to hospital with weakness,generalized abdominal discomfort and found to have elevated LFTs over 5 times normal She also has been drinking alcohol heavily and interested in detox Review of Systems Review of Systems: Yes Unobtainable due to mental status PMFSH Past Medical History Medical History (Updated 10/06/20 @ 14:31 by Miladys Sorenson MD) Alcohol abuse Bipolar 1 disorder COVID-19 Depression HTN (hypertension) PTSD (post-traumatic stress disorder) Suicidal ideation Functional capacity: independent ambulation Family History Family History Mother Endometrial cancer Father Heart disease Social History Social History Household Members: Family Housing: House Do you presently have visiting nurse or other home services: No Alcohol intake: current Alcohol intake frequency: 3 or more drinks per day Alcohol type: hard liquor Smoking Status: Current every day smoker Tobacco Type: Cigarette Packs Per Day: 1 Cigarettes Per Day: 20.0 Years Smoked: 20 Smoked in Last 30 Days: Yes Patient Interested in Nicotine Replacement: No Patient Given Instructions on How to Stop Smoking: No Second Hand Smoke Exposure: Yes Use of substances other than those prescribed or required for medical reasons: No Substance Use Type Other:: previous history of substance abuse Currently Displaying Signs/Symptoms of Drug Intoxication Withdrawal: No Have you been hit, kicked, punched, or otherwise hurt by someone within the past year? If so, by whom?: No Do you feel safe in your current relationship?: No Is there a partner from a previous relationship who is making you feel unsafe now?: No Advance Directives: No Advance Directives Information Provided: Yes Advance Directives on File: No Do you have thoughts of harming others: None Do you have a plan to hurt others: No Plan Recently lost weight without trying: No service: No Current occupational status: employed Meds Allergies Allergy/AdvReac Type Severity Reaction Status Date / Time trazodone [Trazodone] Allergy Severe SWELLING Verified 09/07/20 14:37 oseltamivir Allergy Unknown Unknown Verified 09/07/20 14:37 Home Medications Medication Instructions Recorded Confirmed Type amlodipine 5 mg PO DAILY 09/11/20 10/05/20 History Physical Exam Vital Signs: Vital Signs: Last Vital Signs Temp 97.7 F 10/06/20 10:50 Pulse 89 10/06/20 11:38 Resp 20 10/06/20 10:50 BP 170/85 H 10/06/20 11:38 Pulse Ox 95 10/06/20 10:50 Body Mass Index 43.5 Const: General: cooperative and lethargic Orientation/consciousness: oriented to person, oriented to place, oriented to time and lethargic HENMT: Head: Yes normal to inspection Resp: Effort & Inspection: normal respiratory effort Cardio: Rate: regular rate Rhythm: regular rhythm GI: Inspection: Yes normal to inspection Palpation (GI): nontender Skin: General skin exam: no rashes or lesions noted Neuro: General: oriented to person, oriented to place and oriented to time Assessment and Plan (1) COVID-19: Problem details: Patient screened due to fatigue,weakness COVID positive No respiratory symptoms Status: Acute No specific treatment for COVID needed at this time Heavy alcohol use made her at increased risk (2) Alcoholic intoxication: Qualifiers: Complication of substance-induced condition: uncomplicated Qualified Code(s): F10.920 - Alcohol use, unspecified with intoxication, uncomplicated Status: Acute (3) Elevated LFTs: Status: Acute Check Hepatitis C,HIV Results Labs CBC & Chem 7: 10/06/20 06:14 10/06/20 06:14 Labs: Short CBC 10/06/20 Range/Units 06:14 WBC 3.4 L (4.8-10.8) X10*3/uL Hgb 14.2 (12.0-16.0) g/dl Hct 42.3 (37-47) % Plt Count 60 L D (160-400) X10*3/uL BMP 10/06/20 06:14 Sodium 133 L Potassium 3.5 Chloride 96 Carbon Dioxide 30 H BUN 10 Creatinine 0.67 Calcium 7.2 L D Liver Function 10/06/20 Range/Units 06:14 Total Bilirubin 4.9 H (0.0-1.0) mg/dL Direct Bilirubin 3.4 H (0.0-0.5) mg/dL AST 383 H (5-31) U/L ALT 796 H (0-31) U/L Alkaline Phosphatase 220 H (39-117) U/L Albumin 3.1 L (3.5-5.0) g/dL
[2020-10-06] MEDS: cloNIDine HCL 0.1 MG TABLET PO ×2 (16:32→21:11)
--- NOTE | 2020-10-06 17:25 | PC.NURSE ---
Pt BP still elevated. Lio VILLAREAL, ordered to give 2100 catapress easrly. given per MAR
[2020-10-06] MEDS: Enoxaparin Sodium 40 MG/0.4 ML SYRINGE SUBCUT (21:07)
[2020-10-07] VITALS (7 sets, daily range): BP systolic 147–179; BP diastolic 83–93; PULSE 68–96; RESP 17–20; TEMP 36.3–37; O2SAT 95–97
[2020-10-07] MEDS: 0.9 % Sodium Chloride Flush 3 ML SYRINGE IVFLUSH ×2 (01:02→09:09)
[2020-10-07] MEDS: Thiamine HCL 100 MG TABLET PO (09:09)
[2020-10-07] MEDS: amLODIPine Besylate 5 MG TABLET PO (09:09)
[2020-10-07] MEDS: 0.9 % Sodium Chloride 1,000 ML 100 ML IVCONT ×2 (09:09→17:26)
[2020-10-07] MEDS: Multivitamin TABLET 1 TAB PO (09:09)
[2020-10-07] MEDS: PHENobarbitaL 15 MG TABLET 45 MG PO ×2 (09:09→21:23)
[2020-10-07] MEDS: Folic Acid 1 MG TABLET PO (09:09)
--- NOTE | 2020-10-07 09:57 | MHC.CM.PN ---
FEMALE 45 DX COVID+, ETOH WITHDRAWAL. DP HOME NO SERVICES FAMILY TRANSPORT.
--- NOTE | 2020-10-07 11:46 | MHC.CARE ---
Recovery Support note: Patient is a 45 year old Mosotho speaking female who presented to [facility] ED due to alcohol use and was medically admitted. Patient reports that she was doing well with her sobriety with the support of in person meetings. Patient reports relapsing several weeks ago and that she has been drinking heavily since then. This travel writer discussed in person and virtual AA meetings and provided patient with information on both. Encouraged patient to wait until she is done with quarantine before she starts attending in person meetings again, and that she should utilize virtual meetings in the mean time. Patient acknowledged. Discussed IOP with patient. Patient reports she is busy with work and unable to make serious time commitments. Patient provided with information on [facility] evening IOP and explained how it is a good idea to stay busy and fill free time with structure while in early recovery. Patient acknowledged and accepted the information. Discussed [facility] and recovery coaching with patient as another form of support. Patient receptive of this information and accepted information on this resource. Discussed case with patient's RN, Lanie.
--- NOTE | 2020-10-07 14:34 | P.PNIM_ITS ---
Subjective Subjective Date of Service: 10/07/20 Interval History: patient complaining of persistent generalized weakness and right upper quadrant pain, otherwise offers no other acute complaints no fever, no chills. Review of Systems General no headache , no dizziness,no fever chills. CVS no chest pain, no palpitation. Respiratory no cough Gastrointestinal no nausea, no vomiting, + right upper quadrant abdominal pain, no diarrhea Physical Exam Vital Signs: Vital Signs: Last Vital Signs Temp 98.1 F 10/07/20 11:07 Pulse 83 10/07/20 11:07 Resp 17 10/07/20 11:07 BP 147/83 H 10/07/20 11:07 Pulse Ox 96 10/07/20 11:07 Body Mass Index 43.5 General patient resting comfortably in no acute distress. Neck supple no JVD. CVS regular rate rhythm, Respiratory lungs clear to auscultation, no respiratory distress Gastrointestinal abdomen soft, mild right upper quadrant tenderness with deep palpation, bowel sounds audible, no guarding , no rigidity. Extremities no clubbing cyanosis or edema. Neuro nonfocal skin jaundice Objective Data Current Medications Generic Name Dose Route Start Last Admin Trade Name Brandonq PRN Reason Stop Dose Admin Amlodipine Besylate 5 mg 10/06/20 09:00 10/07/20 09:09 Amlodipine Besylate 5 Mg Tablet PO 5 mg DAILY PO Administration Protocol Clonidine HCl 0.1 mg 10/05/20 21:00 10/06/20 21:11 Clonidine Hcl 0.1 Mg Tablet PO 0.1 mg BEDTIME PO Administration Protocol Enoxaparin Sodium 40 mg 10/05/20 18:00 10/06/20 21:07 Enoxaparin Sodium 40 Mg/0.4 Ml Syringe SUBCUT 40 mg Q24H PO Administration Folic Acid 1 mg 10/06/20 09:00 10/07/20 09:09 Folic Acid 1 Mg Tablet PO 1 mg DAILY PO Administration Sodium Chloride 1,000 mls @ 100 mls/hr 10/07/20 08:45 10/07/20 09:09 Ns IVCONT 100 mls/hr .Q10H PO Administration Medication 1 each 10/06/20 09:00 No Benzodiazepines MISCELLANE DAILY PO Multivitamins/Vitamin C 1 tab 10/06/20 09:00 10/07/20 09:09 Multivitamin Tablet PO 1 tab DAILY PO Administration Ondansetron HCl 4 mg 10/05/20 17:42 10/06/20 11:43 Ondansetron Hcl 4 Mg/2 Ml Vial IVPUSH 4 mg Q8H PRN Administration Nausea and Vomiting Pharmacy Consult 1 each 10/05/20 09:08 Consult Rx Perform Med Rec MISCELLANE ONCE PRN Consult order Phenobarbital 45 mg 10/06/20 09:00 10/07/20 09:09 Phenobarbital 15 Mg Tablet PO 10/07/20 21:01 45 mg BID PO Administration Phenobarbital 15 mg 10/08/20 09:00 Phenobarbital 15 Mg Tablet PO 10/09/20 21:01 BID PO Phenobarbital 15 mg 10/10/20 09:00 Phenobarbital 15 Mg Tablet PO 10/11/20 09:01 DAILY PO Sodium Chloride 3 ml 10/05/20 17:42 10/07/20 09:09 0.9 % Sodium Chloride Flush 3 Ml Syringe IVFLUSH 3 ml QSHIFT PO Administration Thiamine HCl 100 mg 10/06/20 09:00 10/07/20 09:09 Thiamine Hcl 100 Mg Tablet PO 100 mg DAILY PO Administration Labs CBC & Chem 7: 10/06/20 06:14 10/06/20 06:14 Assessment and Plan (1) Alcoholic intoxication: Status: Acute (2) Elevated LFTs: Status: Acute (3) COVID-19: Problem details: Patient screened due to fatigue,weakness COVID positive No respiratory symptoms Status: Acute Assessment and Plan: 45-year-old woman admitted with alcohol withdrawal and transaminitis /acute hepatitis. She has a history of hepatitis C in the past and was treated approximately 3 or 4 years ago. She was also noted to be covid positive. Alcohol withdrawal. generalized weakness, no tremors, no seizure-like activity Continue Phenobarbital protocol. obtain CARE team consult Transaminitis. total and direct bili trending up, liver enzymes trending down, likely related to alcoholic hepatitis,and viral infection, hepatitis-C, antibody and HIV pending, hepatitis-A is pending. await GI input, will give IV fluid, avoid hepatotoxins and follow LFTs. Covid 19 positive. No symptoms. Procalcitonin 0.24, LDH 433, Ddimer 4249, ferritin 5955, seen by Dr. Sorenson, no specific treatment for COVID-19 required. Hypertension. BP high this morning but trending down likely related to alcohol withdrawal, continue Noravsc and clonidine and if BP still high will add beta- luiza. Depression. Continue home medications DVT prophylaxis with Lovenox
[2020-10-07] MEDS: Enoxaparin Sodium 40 MG/0.4 ML SYRINGE SUBCUT (17:23)
[2020-10-07] MEDS: cloNIDine HCL 0.1 MG TABLET PO (21:23)
[2020-10-08] VITALS (10 sets, daily range): BP systolic 142–173; BP diastolic 82–106; PULSE 79–92; RESP 18–19; TEMP 35.9–37.1; O2SAT 94–97
[2020-10-08] MEDS: 0.9 % Sodium Chloride 1,000 ML 100 ML IVCONT ×3 (00:31→14:55)
[2020-10-08 07:14] LABS: Basophils Percent Auto 0.4 % (0-2); Hematocrit 40.2 % (37-47); MANUAL DIFF FLAG SCAN; PLT CLUMP 1; SCAN SMEAR FLAG 1
[2020-10-08 07:16] LABS: Eosinophils Absolute Auto 0.1 X10*3/uL (0.0-0.4); Eosinophils Percent Auto 2.3 % (0-4); Hemoglobin 13.3 g/dl (12.0-16.0); Lymphocytes Absolute Auto 1.2 X10*3/uL (1.2-4.9); Lymphocytes Percent Auto 45.6 % (20-40); Mean Corpuscular HGB Conc 33.1 g/dl (31.0-35.0); Mean Corpuscular Hemoglobin 31.8 pg (27.0-33.0); Mean Corpuscular Volume 96.2 fL (80-98); Monocytes Absolute Auto 0.2 X10*3/uL (0.1-1.2); Monocytes Percent Auto 6.5 % (2-11); Neutrophils Absolute Auto 1.2 X10*3/uL (2.0-8.3); Neutrophils Percent Auto 45.2 % (45-73); Red Blood Count 4.18 X10*6/uL (4.20-5.50); White Blood Count 2.6 X10*3/uL (4.8-10.8)
[2020-10-08 07:32] LABS: PLT ABN DIST 1
[2020-10-08 07:40] LABS: Anion Gap 10 (12-20); Blood Urea Nitrogen 5 mg/dL (9-16); Calcium 7.5 mg/dL (8.4-10.2); Carbon Dioxide 27 mmol/L (22-29); Chloride 102 mmol/L (96-108); Creatinine Clr Calc Pharmacy 156.4; Estimated Glomerular Filt Rate > 60; Glucose Random 116 mg/dL (60-115); Potassium 3.4 mmol/l (3.3-5.1); Sodium 136 mmol/L (135-145)
[2020-10-08 08:00] LABS: Platelet Count 32 X10*3/uL (160-400)
[2020-10-08 08:01] LABS: SLIDE REVIEW VERIFIED
[2020-10-08 08:05] LABS: Alanine Aminotransferase 404 U/L (0-31); Alkaline Phosphatase 197 U/L (39-117); Aspartate Amino Transferase 140 U/L (5-31); Bilirubin Direct 4.3 mg/dL (0.0-0.5); Bilirubin Total 5.5 mg/dL (0.0-1.0); Total Protein 5.7 g/dL (6.5-8.0)
[2020-10-08 08:32] LABS: ~HepC Num1 14.27 S/CO (0.00-0.79); ~Hepatitis C Antibody Reactive (Nonreactive)
[2020-10-08 08:47] LABS: HIV AB/AG Nonreactive (Nonreactive); HIV Num 1 0.15 S/CO (0.00-0.99)
[2020-10-08 08:53] LABS: Hepatitis A Antibody IgM 0.23 Index (0-0.79); ~Hepatitis A Antibody IgM Nonreactive (Nonreactive)
[2020-10-08] MEDS: amLODIPine Besylate 5 MG TABLET PO (10:08)
[2020-10-08] MEDS: PHENobarbitaL 15 MG TABLET PO ×2 (10:08→21:25)
[2020-10-08] MEDS: Thiamine HCL 100 MG TABLET PO (10:08)
[2020-10-08] MEDS: Folic Acid 1 MG TABLET PO (10:09)
[2020-10-08] MEDS: Multivitamin TABLET 1 TAB PO (10:09)
--- NOTE | 2020-10-08 10:56 | HO.PM.IMPN ---
Subjective Subjective Date of Service: 10/08/20 Interval History: patient feeling much better this morning less nauseous, abdominal pain has improved tolerating diet continue to feel weak, no other acute issues overnight. Review of Systems General no headache no dizziness , no fever chills. CVS no chest pain, no palpitation. Respiratory no cough Gastrointestinal , occasional nausea, no vomiting, no abdominal pain Physical Exam Vital Signs: Vital Signs: Last Vital Signs Temp 98.7 F 10/08/20 08:00 Pulse 79 10/08/20 10:08 Resp 18 10/08/20 08:00 BP 165/102 H 10/08/20 10:08 Pulse Ox 97 10/08/20 08:00 Body Mass Index 43.5 General patient resting comfortably in no acute distress. Neck supple no JVD. CVS regular rate rhythm, Respiratory lungs clear to auscultation, no respiratory distress Gastrointestinal abdomen soft, mild right upper quadrant tenderness with deep palpation, bowel sounds audible, no guarding , no rigidity. Extremities no clubbing cyanosis or edema. Neuro nonfocal skin jaundice Objective Data Current Medications Generic Name Dose Route Start Last Admin Trade Name Freq PRN Reason Stop Dose Admin Amlodipine Besylate 5 mg 10/06/20 09:00 10/08/20 10:08 Amlodipine Besylate 5 Mg Tablet PO 5 mg DAILY PO Administration Protocol Clonidine HCl 0.1 mg 10/05/20 21:00 10/07/20 21:23 Clonidine Hcl 0.1 Mg Tablet PO 0.1 mg BEDTIME PO Administration Protocol Enoxaparin Sodium 40 mg 10/05/20 18:00 10/07/20 17:23 Enoxaparin Sodium 40 Mg/0.4 Ml Syringe SUBCUT 40 mg Q24H PO Administration Folic Acid 1 mg 10/06/20 09:00 10/08/20 10:09 Folic Acid 1 Mg Tablet PO 1 mg DAILY PO Administration Sodium Chloride 1,000 mls @ 100 mls/hr 10/07/20 08:45 10/08/20 10:10 Ns IVCONT 100 mls/hr .Q10H PO Administration Medication 1 each 10/06/20 09:00 No Benzodiazepines MISCELLANE DAILY PO Multivitamins/Vitamin C 1 tab 10/06/20 09:00 10/08/20 10:09 Multivitamin Tablet PO 1 tab DAILY PO Administration Ondansetron HCl 4 mg 10/05/20 17:42 10/06/20 11:43 Ondansetron Hcl 4 Mg/2 Ml Vial IVPUSH 4 mg Q8H PRN Administration Nausea and Vomiting Pharmacy Consult 1 each 10/05/20 09:08 Consult Rx Perform Med Rec MISCELLANE ONCE PRN Consult order Phenobarbital 15 mg 10/08/20 09:00 10/08/20 10:08 Phenobarbital 15 Mg Tablet PO 10/09/20 21:01 15 mg BID PO Administration Phenobarbital 15 mg 10/10/20 09:00 Phenobarbital 15 Mg Tablet PO 10/11/20 09:01 DAILY PO Sodium Chloride 3 ml 10/05/20 17:42 10/08/20 10:15 0.9 % Sodium Chloride Flush 3 Ml Syringe IVFLUSH Not Given QSHIFT PO Thiamine HCl 100 mg 10/06/20 09:00 10/08/20 10:08 Thiamine Hcl 100 Mg Tablet PO 100 mg DAILY PO Administration Labs CBC & Chem 7: 10/08/20 06:09 10/08/20 06:09 Assessment and Plan (1) Alcoholic intoxication: Status: Acute (2) Elevated LFTs: Status: Acute (3) COVID-19: Problem details: Patient screened due to fatigue,weakness COVID positive No respiratory symptoms Status: Acute Assessment and Plan: 45-year-old woman admitted with alcohol withdrawal and transaminitis /acute hepatitis. She has a history of hepatitis C in the past and was treated approximately 3 or 4 years ago. She was also noted to be covid positive. Alcohol withdrawal. generalized weakness, no tremors, no seizure-like activity Continue Phenobarbital protocol. Transaminitis. total and direct bili trending up, liver enzymes trending down, likely related to alcoholic hepatitis,and viral infection, hepatitis-C, antibody reactive and HIV negative, hepatitis-A IGM antibody nonreactive. await GI input, continue IV fluid, avoid hepatotoxins and follow LFTs. patient tolerating by mouth, will add Ensure can tid due to low albumin. Covid 19 positive. No symptoms. Procalcitonin 0.24, LDH 433, Ddimer 4249, ferritin 5955, seen by Dr. Sorenson, no specific treatment for COVID-19 required, continue symptomatic treatment. Hypertension. BP remains elevated, likely related to alcohol withdrawal, continue Noravsc and change clonidine to 0.1 mg b.i.d. Depression. Continue home medications DVT prophylaxis with Lovenox
[2020-10-08] MEDS: cloNIDine HCL 0.1 MG TABLET PO ×2 (14:20→21:25)
[2020-10-08 18:18] LABS: Fibrinogen 438 MG/DL (259-690)
[2020-10-08 18:31] LABS: D Dimer 3257 NG/ML
--- NOTE | 2020-10-08 20:46 | PM.GICN ---
History of Present Illness Data of Consult Service Date: 10/08/20 Requesting physician: Anca Brown Primary Care Provider: Unknown Physician HPI Reason for consult: abn LFT 45-year-old woman w hx of alcohol abuse, smoking, HTN, prior Hep C (treated), bipolar d/o who I am asked to see for assessment of abn LFT. She was admitted due to alcohol withdrawal symptoms and recent heavy ingestion of vodka on daily basis for few months> she did endorse nausea, non bloody emesis and general malaise. She denied fever, chills, chest or abdominal pain, shortness of breath, hematemesis or rectal bleeding. As part of protocol COVID testing done and returned positive. Labs also with elevated LFT-with AST of 829 and ALT of 1500 initially. Alk-phos 246, total bili 2.3 Abdominal ultrasound in the ER showed moderate hepatomegaly with diffuse fatty changes of the liver Now currently on alcohol withdrawal protocol and has no complaints Review of Systems Review of Systems: Yes all other systems are reviewed and are negative PMFSH Past Medical History Medical History Alcohol abuse Bipolar 1 disorder COVID-19 Depression HTN (hypertension) PTSD (post-traumatic stress disorder) Suicidal ideation Functional capacity: independent ambulation Family History Family History Mother Endometrial cancer Father Heart disease Social History Social History Household Members: Family Housing: House Alcohol intake: current Alcohol intake frequency: 3 or more drinks per day Alcohol type: hard liquor Smoking Status: Current every day smoker Tobacco Type: Cigarette Packs Per Day: 1 Cigarettes Per Day: 20.0 Years Smoked: 20 Second Hand Smoke Exposure: Yes service: No Current occupational status: employed Meds Allergies Allergy/AdvReac Type Severity Reaction Status Date / Time trazodone [Trazodone] Allergy Severe SWELLING Verified 09/07/20 14:37 oseltamivir Allergy Unknown Unknown Verified 09/07/20 14:37 Home Medications Medication Instructions Recorded Confirmed Type amlodipine 5 mg PO DAILY 09/11/20 10/05/20 History Physical Exam Vital Signs: Vital Signs: Last Vital Signs Temp 97.6 F 10/08/20 19:24 Pulse 91 10/08/20 19:24 Resp 19 10/08/20 19:24 BP 173/106 H 10/08/20 19:24 Pulse Ox 97 10/08/20 19:24 Body Mass Index 43.5 Const: General: cooperative Orientation/consciousness: patient oriented x3 Resp: Effort & Inspection: normal respiratory effort Auscultation: clear to auscultation bilaterally Cardio: Jugular venous distension: no JVD Rhythm: regular rhythm Heart sounds: S1 normal heart sound present and S2 normal heart sound present GI: Inspection: Yes normal to inspection and Yes obesity Palpation (GI): Soft to palpation Percussion: Yes normal to percussion Auscultation: normal bowel sounds Skin: General skin exam: jaundice Neuro: General: patient oriented x3 Results Labs CBC & Chem 7: 10/08/20 06:09 10/08/20 06:09 Labs: Short CBC 10/08/20 Range/Units 06:09 WBC 2.6 L (4.8-10.8) X10*3/uL Hgb 13.3 (12.0-16.0) g/dl Hct 40.2 (37-47) % Plt Count 32 L D (160-400) X10*3/uL BMP 10/08/20 06:09 Sodium 136 Potassium 3.4 Chloride 102 Carbon Dioxide 27 BUN 5 L Creatinine 0.60 Calcium 7.5 L Liver Function 10/08/20 Range/Units 06:09 Total Bilirubin 5.5 H (0.0-1.0) mg/dL Direct Bilirubin 4.3 H (0.0-0.5) mg/dL AST 140 H (5-31) U/L ALT 404 H (0-31) U/L Alkaline Phosphatase 197 H (39-117) U/L Albumin 3.0 L (3.5-5.0) g/dL Assessment and Plan (1) Elevated LFTs: Status: Acute 1/ Elevated LFT, primarily cholestatic picture from combination of alcohol abuse, dehydration, steatohepatitis and COVID infection. She doesn;t quite fit the typical picture of alcoholic hepatitis by itself as AST<ALT and MCV is normal. Hep A, B HIV and tylenol negative. Seems too well for HSV,CMV or EBV related hepatitis. 2/ Thrombocytopenia, prob 2/2 alcohol abuse and bone marrow depression, clinically she is not in septic shock or DIC< may also be due to COVID 3/ pos Hep C Ab, can stay pos even after successful treatment PLAN: 1/ rehydrate, alcohol withdrawal protocol and multivitamins 2/ cont to monitor daily LFT with INR, hold Vit K for the moment givne pro thrombotic risks of COVID 3/check Hep C PCR, to see if has active infection or reinfection 4/ no evidence of imminent liver failure at thsi stage, cont to monitor as above Procedures Abscess I/D Date of Service: 10/08/20
[2020-10-09] MEDS: 0.9 % Sodium Chloride 1,000 ML 100 ML IVCONT (03:15)
[2020-10-09 03:31] VITALS: BP 152/88; PULSE 75; RESP 18; TEMP 37; O2SAT 94
[2020-10-09 06:56] LABS: MANUAL DIFF FLAG SCAN; PLT CLUMP 1; Red Blood Count 4.42 X10*6/uL (4.20-5.50); SCAN SMEAR FLAG 1
[2020-10-09 06:58] LABS: Basophils Percent Auto 0.3 % (0-2); Eosinophils Absolute Auto 0.1 X10*3/uL (0.0-0.4); Eosinophils Percent Auto 2.4 % (0-4); Hematocrit 42.3 % (37-47); Hemoglobin 13.8 g/dl (12.0-16.0); Imm Gran Abs Auto 0.01 X10*3/uL (0.00-0.03); Imm Gran Pct Auto 0.3 % (0.0-0.4); Lymphocytes Absolute Auto 1.4 X10*3/uL (1.2-4.9); Lymphocytes Percent Auto 37.3 % (20-40); Mean Corpuscular HGB Conc 32.6 g/dl (31.0-35.0); Mean Corpuscular Hemoglobin 31.2 pg (27.0-33.0); Mean Corpuscular Volume 95.7 fL (80-98); Mean Platelet Volume 12.1 fL (9.4-12.3); Monocytes Absolute Auto 0.3 X10*3/uL (0.1-1.2); Monocytes Percent Auto 6.6 % (2-11); Neutrophils Percent Auto 53.1 % (45-73); Red Cell Distribution Width 12.9 % (11.0-16.0); White Blood Count 3.8 X10*3/uL (4.8-10.8)
[2020-10-09 07:16] LABS: Alanine Aminotransferase 311 U/L (0-31); Albumin Level 3.1 g/dL (3.5-5.0); Alkaline Phosphatase 202 U/L (39-117); Anion Gap 9 (12-20); Aspartate Amino Transferase 105 U/L (5-31); Bilirubin Direct 3.7 mg/dL (0.0-0.5); Bilirubin Total 4.6 mg/dL (0.0-1.0); Blood Urea Nitrogen 5 mg/dL (9-16); Carbon Dioxide 30 mmol/L (22-29); Chloride 102 mmol/L (96-108); Creatinine Clr Calc Pharmacy 148.9; Estimated Glomerular Filt Rate > 60; Glucose Random 114 mg/dL (60-115); Potassium 3.3 mmol/l (3.3-5.1); Sodium 138 mmol/L (135-145); Total Protein 5.8 g/dL (6.5-8.0)
[2020-10-09 07:17] LABS: Platelet Count 43 X10*3/uL (160-400)
[2020-10-09 07:50] LABS: SLIDE REVIEW VERIFIED
[2020-10-09 08:00] VITALS: BP 150/78; PULSE 79; RESP 18; TEMP 36.9; O2SAT 94
[2020-10-09] MEDS: Folic Acid 1 MG TABLET PO (08:04)
[2020-10-09] MEDS: cloNIDine HCL 0.1 MG TABLET PO (08:04)
[2020-10-09] MEDS: amLODIPine Besylate 5 MG TABLET PO (08:04)
[2020-10-09] MEDS: Thiamine HCL 100 MG TABLET PO (08:04)
[2020-10-09] MEDS: PHENobarbitaL 15 MG TABLET PO (08:04)
[2020-10-09] MEDS: Multivitamin TABLET 1 TAB PO (08:04)
[2020-10-09] MEDS: 0.9 % Sodium Chloride Flush 3 ML SYRINGE IVFLUSH (08:05)
--- NOTE | 2020-10-09 09:59 | PM.HEMONCCN ---
Subjective - Subjective Consult date: 10/09/20 Requesting Physician: Anca Brown MD Primary Care Provider: Unknown Physician HPI - Consult Narrative Reason for consult: Thrombocytopenia Narrative: Josefina Yuan is a 45 year old female who has been admitted to the hospital with symptoms of alcohol withdrawal, nausea, emesis and general malaise. She did not have any symptoms of fever, chills, cough or shortness of breath however COVID-19 testing as per protocol was done and it is positive. She was thrombocytopenic since the day of admission and platelet counts continue to decline although today they have shown some improvement. She is mildly leukopenic as well. She has a history of chronic alcoholism and liver disease. Her hepatitis-C antibody is also positive. Further workup for this is pending. There is no mention of splenomegaly on recent ultrasound performed. She had normal platelet counts in April of this year but in April 2019 they were below 100,000. This consultation was done via telephone since patient has COVID-19 infection. [facility] Medical History: Medical History (Last Reviewed 10/08/20 @ 20:52 by Sanju Castro MD) Alcohol abuse Bipolar 1 disorder COVID-19 Depression HTN (hypertension) PTSD (post-traumatic stress disorder) Suicidal ideation Functional capacity: independent ambulation Family History: Family History (Last Reviewed 10/08/20 @ 20:52 by Sanju Castro MD) Mother Endometrial cancer Father Heart disease Smoking status: Current every day smoker Home Medications and Allergies Current Medications: Current Medications Generic Name Dose Route Start Last Admin Trade Name Freq PRN Reason Stop Dose Admin Amlodipine Besylate 5 mg 10/06/20 09:00 10/09/20 08:04 Amlodipine Besylate 5 Mg Tablet PO 5 mg DAILY PO Administration Protocol Clonidine HCl 0.1 mg 10/08/20 11:15 10/09/20 08:04 Clonidine Hcl 0.1 Mg Tablet PO 0.1 mg BID PO Administration Protocol Folic Acid 1 mg 10/06/20 09:00 10/09/20 08:04 Folic Acid 1 Mg Tablet PO 1 mg DAILY PO Administration Sodium Chloride 1,000 mls @ 100 mls/hr 10/07/20 08:45 10/09/20 03:15 Ns IVCONT 100 mls/hr .Q10H PO Administration Medication 1 each 10/06/20 09:00 No Benzodiazepines MISCELLANE DAILY PO Multivitamins/Vitamin C 1 tab 10/06/20 09:00 10/09/20 08:04 Multivitamin Tablet PO 1 tab DAILY [facility] Administration Ondansetron HCl 4 mg 10/05/20 17:42 10/06/20 11:43 Ondansetron Hcl 4 Mg/2 Ml Vial IVPUSH 4 mg Q8H PRN Administration Nausea and Vomiting Pharmacy Consult 1 each 10/05/20 09:08 Consult Rx Perform Med Rec MISCELLANE ONCE PRN Consult order Phenobarbital 15 mg 10/08/20 09:00 10/09/20 08:04 Phenobarbital 15 Mg Tablet PO 10/09/20 21:01 15 mg BID PO Administration Phenobarbital 15 mg 10/10/20 09:00 Phenobarbital 15 Mg Tablet PO 10/11/20 09:01 DAILY [facility] Sodium Chloride 3 ml 10/05/20 17:42 10/09/20 08:05 0.9 % Sodium Chloride Flush 3 Ml Syringe IVFLUSH 3 ml QSHIFT [facility] Administration Thiamine HCl 100 mg 10/06/20 09:00 10/09/20 08:04 Thiamine Hcl 100 Mg Tablet PO 100 mg DAILY [facility] Administration Home Medications Medication Instructions Recorded Confirmed Type amlodipine 5 mg PO DAILY 09/11/20 10/05/20 History Allergies Allergy/AdvReac Type Severity Reaction Status Date / Time trazodone [Trazodone] Allergy Severe SWELLING Verified 09/07/20 14:37 oseltamivir Allergy Unknown Unknown Verified 09/07/20 14:37 Physical Exam Vital signs: Vital Signs Temp 98.5 F 10/09/20 08:00 Pulse 79 10/09/20 08:00 Resp 18 10/09/20 08:00 BP 150/78 H 10/09/20 08:00 Pulse Ox 94 10/09/20 08:00 Intake & Output 10/08/20 10/09/20 10/09/20 18:59 06:59 18:59 Intake Total 1680 / 3160 1480 / 3160 Output Total 600 / 601 1 601 Balance 1080 / 2559 1479 / 2559 Urine Output (Average ml/kg/hr) 0.41 0.00 Intake: Intake, Oral Amount 240 / 720 480 / 720 Intake, IV Amount 1440 / 2440 1000 / 2440 0.9 % Sodium Chloride 1,000 ml 1440 / 2440 1000 / 2440 @ 100 mls/hr IVCONT .Q10H [facility] Rx#:[id number] Output: Output, Urine Amount 600 / 601 1 Other: Breakfast % Eaten 100% Lunch % Eaten 100% Number of Unmeasured Voids 2 Urine Bathroom Weight 122.47 kg Hem/Onc Consult Result - Labs CBC & Chem 7: 10/09/20 06:11 10/09/20 06:11 Labs: Short CBC 10/09/20 Range/Units 06:11 WBC 3.8 L (4.8-10.8) X10*3/uL Hgb 13.8 (12.0-16.0) g/dl Hct 42.3 (37-47) % Plt Count 43 L D (160-400) X10*3/uL BMP 10/09/20 06:11 Sodium 138 Potassium 3.3 Chloride 102 Carbon Dioxide 30 H BUN 5 L Creatinine 0.63 Calcium 8.0 L D Liver Function 10/09/20 Range/Units 06:11 Total Bilirubin 4.6 H (0.0-1.0) mg/dL Direct Bilirubin 3.7 H (0.0-0.5) mg/dL AST 105 H (5-31) U/L ALT 311 H (0-31) U/L Alkaline Phosphatase 202 H (39-117) U/L Albumin 3.1 L (3.5-5.0) g/dL Assessment and Plan (1) Thrombocytopenia Status: Acute 1. Thrombocytopenia in the setting of alcohol abuse, COVID-19 infection and positive hepatitis-C antibody. Although she had normal platelet counts in November of this year, previously in April of 2019 her platelet counts were below 100,000. Etiology of thrombocytopenia is multifactorial. Probable etiologies are bone marrow suppression from alcohol abuse and poor nutrition. COVID-19 infection has also been associated with thrombocytopenia. Underlying liver disease and hepatitis-C would contribute to thrombocytopenia. Although her PT/INR are mildly elevated, fibrinogen levels are not low, therefore DIC is less likely. Her kidney functions are normal and she does not have anemia, LDH was mildly elevated on 10/05/2020, this is being repeated today. Unlikely for this to be microangiopathic or hemolytic anemia. Clinical picture not consistent with heparin-induced thrombocytopenia since she was thrombocytopenic at the time of admission and not after few days of exposure to heparin. She has mild leukopenia as well. Submit vitamin B12 and folic acid levels. Continue to monitor daily CBC. I will follow with you, I thank you very much for this referral.
[2020-10-09 10:14] LABS: Lactate Dehydrogenase 233 U/L (122-220)
[2020-10-09 11:27] VITALS: BP 138/78; PULSE 79; RESP 18; TEMP 36.1; O2SAT 95
[2020-10-09 11:52] LABS: Fibrinogen 463 MG/DL (259-690)
[2020-10-09 12:26] LABS: HIT-Patient Optical Density 0.321 OD UNITS (<OR= 0.300); Heparin Induced Plt Ab WEAK POSITIVE (NEGATIVE)
--- NOTE | 2020-10-09 12:48 | PM.DS ---
DS: Providers Provider Date of admission: 10/05/20 10:24 Primary care physician: Unknown Physician Consults: 10/04/20 17:00 Consult to Care Team Routine Comment: Reason for consultation: etoh, depression 10/05/20 17:42 Consult to Infectious Diseases Routine Consulting Provider: Miladys Sorenson Reason for consultation: covid + Has provider been notified: No 10/08/20 16:59 Consult to Hematology / Oncology Routine Consulting Provider: Mariela Aldana Reason for consultation: thrombocytopenia 10/09/20 08:09 Consult to Gastroenterology Routine Consulting Provider: Sanju Castro Reason for consultation: elevated lfts Has provider been notified: Yes DS: Diagnosis Discharge Diagnosis (1) Thrombocytopenia: Status: Acute DS: Medications Discharge Medications Home Medications: Home Medications Medication Instructions Recorded Confirmed amlodipine 5 mg PO DAILY 09/11/20 10/05/20 Previous Rx's Medication Instructions Recorded clonidine HCl 0.1 mg PO BID #60 tab 10/09/20 DS: Summary Hospital Course Hospital Course: history of presenting illness Chief Complaint: Alcohol withdrawl 45-year-old woman presenting to the ER with alcohol withdrawal symptoms. She reports that she had been sober for 5 years and relapsed 2 months ago. She drinks quite heavily including more than a pt of vodka a day. She reports that her mother had gotten concerned and suggested that she seek detox. She reported that she has been having some nausea, vomiting more recently. She denied fever, chills, chest pain, shortness of breath, hematemesis or rectal bleeding. Abdominal ultrasound in the ER showed moderate hepatomegaly with diffuse fatty changes of the liver. Her liver enzymes are quite elevated with AST of 829 and ALT of 1500 initially. Alk-phos 246, total bili 2.3. Her liver enzymes did improve some today but her bili did go up to 3.0. She does have a history of hepatitis-C and reported that was treated approximately 3-4 years ago. She does have reactive antibodies for hepatitis-C. Hepatitis-B was negative, hepatitis a pending. She was given a banana bag in the ER as well as another L of IV fluid. She will be admitted for further management treatment of alcohol withdrawal as well as transaminitis /Acute hepatitis hospital course 45-year-old woman admitted with alcohol withdrawal and transaminitis /acute hepatitis. She has a history of hepatitis C in the past and was treated approximately 3 or 4 years ago. She was also noted to be covid positive. Alcohol withdrawal. patient treated with phenobarb protocol and has been strongly advised to abstain from alcohol patient seen by care team. Elevated LFTs patient had cholestatic picture, likely related to alcohol abuse dehydration and COVID infection, LFTs at trending down, patient evaluated by Gastroenterology they recommend close outpatient follow-up a hepatitis C PCR has been ordered to assess for active infection or reinfection , patient is tolerating diet and has no abdominal pain. Covid 19 positive. No symptoms. Procalcitonin 0.24, LDH 433, Ddimer 4249, ferritin 5955, Patient evaluated by ID, Dr. Sorenson, no specific treatment for COVID-19 required, recommend patient to stay well hydrated avoid alcohol and continue isolation for next few days. Hypertension. BP Borderline high, likely due to alcohol withdrawal, anxiety, continue Noravsc and changed clonidine to 0.1 mg b.i.d. Thrombocytopenia platelet count dropped down to mid 30s now trending up in 40,000, it seems multifactorial with history of alcohol abuse COVID-19 infection underlying hepatitis C infection patient seen by Dr. Aldana she does not feel it is heparin induced thrombocytopenia since she was thrombocytopenic at the time of admission, she recommend outpatient follow-up with her. Depression. Continue home medications Time Spent with Patient Time attestation: Total time spent providing and/or coordinating discharge services: Physical Exam Vital Signs: Vital Signs: Last Vital Signs Temp 97.0 F 10/09/20 11:27 Pulse 79 10/09/20 11:27 Resp 18 10/09/20 11:27 BP 138/78 10/09/20 11:27 Pulse Ox 95 10/09/20 11:27 Body Mass Index 43.5 General patient resting comfortably in no acute distress. Neck is supple no JVD. CVS regular rate rhythm, Respiratory lungs clear to auscultation, no respiratory distress Gastrointestinal abdomen soft, nontender, bowel sounds audible, Extremities no clubbing cyanosis or edema. Neuro nonfocal patient moving all 4 extremity speech clear. icteric sclera DS: Data Data Completed and Pending Labs on day of discharge: 10/04/20 17:04 Basic Metabolic Panel Stat Complete Blood Count Auto Diff Stat Drug Screen Urine Stat Ethanol Stat Lipase Stat Liver Panel Stat SLIDE REVIEW Stat Ur Preg Test Stat 10/04/20 21:39 US abdomen limited Stat 10/04/20 22:28 Acetaminophen LAB Stat Hepatitis A,B,C Profile Stat 10/05/20 01:45 0.9 % Sodium Chloride [Ns] 1,000 ml Folic Acid 1 mg Thiamine HCL 100 mg MVI, Adult [Infuvite Adult] 10 ml IV 999 mls/hr 10/05/20 02:15 MVI, Adult [Infuvite Adult] 10 ml .ROUTE .STK-MED ONE Thiamine HCL 200 mg .ROUTE .STK-MED ONE 10/05/20 02:16 MVI, Adult [Infuvite Adult] 10 ml .ROUTE .STK-MED ONE 10/05/20 02:20 D Dimer Stat Prothrombin Time INR Stat 10/05/20 02:54 Folic Acid 1 ml .ROUTE .STK-MED ONE 10/05/20 05:39 LORazepam [Ativan] 2 mg PO ONCE ONE 10/05/20 07:15 XR chest 1V Stat 10/05/20 07:30 0.9 % Sodium Chloride [Ns] 1,000 ml IVCONT 999 mls/hr 10/05/20 08:12 Lipase Stat Liver Panel Stat Magnesium Stat 10/05/20 09:42 Consult Rx EtOH Phenob Dosing 1 each MISCELLANE ONCE ONE 10/05/20 10:19 Transfer Order Routine 10/05/20 10:28 SARS COV2 PCR INHOUSE Stat 10/05/20 11:00 PHENobarbitaL sodium 237 mg IM ONCE@1100 10/05/20 13:09 Ferritin Stat Lactate Dehydrogenase Stat 10/05/20 14:00 PHENobarbitaL sodium 178 mg IM 1400,1700 10/05/20 14:28 Procalcitonin Stat 10/05/20 Lunch Low Sodium Diet 10/05/20 18:00 Enoxaparin Sodium [Lovenox] 40 mg SUBCUT Q24H 10/05/20 18:35 amLODIPine Besylate [Norvasc] 5 mg PO ONCE ONE 10/05/20 20:42 PHENobarbitaL sodium 130 mg IM STAT STA 10/05/20 20:45 Metoprolol Tartrate [Lopressor] 12.5 mg PO ONCE ONE 10/05/20 21:00 cloNIDine HCL [Catapres] 0.1 mg PO BEDTIME 10/06/20 Add Laboratory Test Routine 10/06/20 06:14 Basic Metabolic Panel DAILY@0600 Complete Blood Count Auto Diff DAILY@0600 Liver Panel Routine SLIDE REVIEW Routine 10/06/20 09:00 PHENobarbitaL 45 mg PO BID 10/06/20 10:42 Add Laboratory Test Stat 10/06/20 11:03 amLODIPine Besylate [Norvasc] 5 mg PO ONCE ONE 10/06/20 Lunch Low Sodium Diet 10/06/20 16:12 HIV Ab/Ag Routine Hepatitis C Antibody Routine 10/08/20 06:09 Basic Metabolic Panel Routine Complete Blood Count Auto Diff Routine Liver Panel Routine SLIDE REVIEW Routine 10/08/20 16:22 Heparin Induced Thrombocytopen Routine 10/08/20 17:58 D Dimer Routine Fibrinogen Routine 10/09/20 06:11 Basic Metabolic Panel Routine Complete Blood Count Auto Diff Routine Lactate Dehydrogenase Routine Liver Panel Routine SLIDE REVIEW Routine 10/09/20 10:06 Add Laboratory Test Urgent 10/09/20 11:28 Fibrinogen Routine Laboratory Last Values WBC 3.8 X10*3/uL (4.8-10.8) L 10/09/20 06:11 RBC 4.42 X10*6/uL (4.20-5.50) 10/09/20 06:11 Hgb 13.8 g/dl (12.0-16.0) 10/09/20 06:11 Hct 42.3 % (37-47) 10/09/20 06:11 MCV 95.7 fL (80-98) 10/09/20 06:11 MCH 31.2 pg (27.0-33.0) 10/09/20 06:11 MCHC 32.6 g/dl (31.0-35.0) 10/09/20 06:11 RDW 12.9 % (11.0-16.0) 10/09/20 06:11 Plt Count 43 X10*3/uL (160-400) L D 10/09/20 06:11 MPV 12.1 fL (9.4-12.3) 10/09/20 06:11 Immature Gran % (Auto) 0.3 % (0.0-0.4) 10/09/20 06:11 Neut % (Auto) 53.1 % (45-73) 10/09/20 06:11 Lymph % (Auto) 37.3 % (20-40) 10/09/20 06:11 [place] % (Auto) 6.6 % (2-11) 10/09/20 06:11 Eos % (Auto) 2.4 % (0-4) 10/09/20 06:11 Baso % (Auto) 0.3 % (0-2) 10/09/20 06:11 Lymph # (Auto) 1.4 X10*3/uL (1.2-4.9) 10/09/20 06:11 [place] # (Auto) 0.3 X10*3/uL (0.1-1.2) 10/09/20 06:11 Eos # (Auto) 0.1 X10*3/uL (0.0-0.4) 10/09/20 06:11 Baso # (Auto) 0.0 X10*3/uL (0.0-0.2) 10/09/20 06:11 Abs Immat Gran (auto) 0.01 X10*3/uL (0.00-0.03) 10/09/20 06:11 Absolute Neuts (auto) 2.0 X10*3/uL (2.0-8.3) 10/09/20 06:11 Absolute Nucleated RBC 0.000 X10*3/uL (0.0-0.012) 10/09/20 06:11 Nucleated RBC % (auto) 0.0 /100WBC (0.0-0.2) 10/09/20 06:11 Smear Tech's Comments VERIFIED 10/09/20 06:11 PT 16.0 SEC (10.8-13.0) H 10/05/20 02:20 INR 1.3 (0.9-1.1) H 10/05/20 02:20 Fibrinogen 463 MG/DL (259-690) 10/09/20 11:28 D-Dimer 3257 NG/ML 10/08/20 17:58 Hep-Ind Thrombocytop Com See Below 10/08/20 16:22 Sodium 138 mmol/L (135-145) 10/09/20 06:11 Potassium 3.3 mmol/l (3.3-5.1) 10/09/20 06:11 Chloride 102 mmol/L (96-108) 10/09/20 06:11 Carbon Dioxide 30 mmol/L (22-29) H 10/09/20 06:11 Anion Gap 9 (12-20) L 10/09/20 06:11 BUN 5 mg/dL (9-16) L 10/09/20 06:11 Creatinine 0.63 mg/dL (0.5-1.4) 10/09/20 06:11 Estim Creat Clear Calc 148.9 10/09/20 06:11 Estimated GFR > 60 10/09/20 06:11 Random Glucose 114 mg/dL (60-115) 10/09/20 06:11 Calcium 8.0 mg/dL (8.4-10.2) L D 10/09/20 06:11 Magnesium 1.8 mg/dL (1.6-2.6) 10/05/20 08:12 Ferritin 5955 ng/mL (10-250) H 10/05/20 13:09 Total Bilirubin 4.6 mg/dL (0.0-1.0) H 10/09/20 06:11 Direct Bilirubin 3.7 mg/dL (0.0-0.5) H 10/09/20 06:11 AST 105 U/L (5-31) H 10/09/20 06:11 ALT 311 U/L (0-31) H 10/09/20 06:11 Alkaline Phosphatase 202 U/L (39-117) H 10/09/20 06:11 Lactate Dehydrogenase 233 U/L (122-220) H 10/09/20 06:11 Total Protein 5.8 g/dL (6.5-8.0) L 10/09/20 06:11 Albumin 3.1 g/dL (3.5-5.0) L 10/09/20 06:11 Lipase 92 U/L (8-78) H 10/05/20 08:12 Procalcitonin 0.24 ng/mL 10/05/20 14:28 Urine Color YELLOW 10/04/20 17:04 Urine Appearance CLEAR 10/04/20 17:04 Urine pH 6.5 (5.0-8.0) 10/04/20 17:04 Ur Specific [place] <= 1.005 (1.005-1.025) 10/04/20 17:04 Urine Protein NEG MG/DL (NEG-TRACE) 10/04/20 17:04 Urine Glucose (UA) NEG MG/DL (NEG) 10/04/20 17:04 Urine Ketones NEG MG/DL (NEG) 10/04/20 17:04 Urine Blood TRACE (NEG) 10/04/20 17:04 Urine Nitrite NEG (NEG) 10/04/20 17:04 Ur Leukocyte Esterase NEG (NEG) 10/04/20 17:04 Urine RBC 0 /HPF (0) 10/04/20 17:04 Urine WBC 0 /HPF (0-4) 10/04/20 17:04 Ur Squamous Epith Cells 1+ /LPF 10/04/20 17:04 Urine Bacteria 1+ /LPF 10/04/20 17:04 Urine Test NEGATIVE (NEGATIVE) 10/04/20 17:04 Urine Opiates Screen Not Detected (Not Detect) 10/04/20 17:04 Acetaminophen < 1 mcg/mL (<30) 10/04/20 22:28 Ur Barbiturates Screen POSITIVE (Not Detect) H 10/04/20 17:04 Ur Phencyclidine Scrn Not Detected (Not Detect) 10/04/20 17:04 Ur Amphetamines Screen Not Detected (Not Detect) 10/04/20 17:04 U Benzodiazepines Scrn Not Detected (Not Detect) 10/04/20 17:04 Urine Cocaine Screen Not Detected (Not Detect) 10/04/20 17:04 U Marijuana (THC) Screen Not Detected (Not Detect) 10/04/20 17:04 Ethyl Alcohol 414 mg/dL H* 10/04/20 17:04 Heparin Dep Plt Ab OD 0.321 OD UNITS (<OR= 0.300) H 10/08/20 16:22 Hep-Induced Plt Ab [place] WEAK POSITIVE (NEGATIVE) A 10/08/20 16:22 Coronavirus (PCR) POSITIVE (Negative) A 10/05/20 10:28 Hepatitis A IgM Ab Nonreactive (Nonreactive) 10/04/20 22:28 Hep Bs Antigen Negative (Negative) 10/04/20: Hep Bs Antibody NONREACTIVE (Nonreactive) 10/04/20 22:28 Hep B Core Total Ab Nonreactive (Nonreactive) 10/04/20 22:28 Hepatitis C Ab (EIA) Reactive (Nonreactive) H 10/06/20 16:12 HIV 1&2 Ab/P24 Ag 4thGn Nonreactive (Nonreactive) 11/10/20 16:12 Discharge Plan Discharge Patient Disposition: Home, Self-Care Referrals: Tiffany Bass MD [Physician] - 1 Week (Nurse will call you with appointment.) Discharge Medications: New clonidine HCl 0.1 mg Tablet 0.1 mg PO BID Qty: 60 RF: 0 Continued amlodipine 5 mg tablet 5 mg PO DAILY RF: 0 Discontinued clonidine HCl 0.1 mg tablet 0.1 mg PO BEDTIME Qty: 30 RF: 3 Discharge Orders: Discharge Order (Routine); Ordered 10/09/20 Ordered By: Anca Brown Diet: low fat, low cholesterol Activity on Discharge: As tolerated Visit Report Forms: Patient Portal Discharge page Care Plan Goals: continue wearing mask, rest and drink plenty of fluids Health Concerns: no alcohol follow-up with outpatient support Plan of Treatment: outpatient follow-up with primary care physician, Gastroenterology Dr. Hess and ethylbenzene converter operator Dr. Aldana
[2020-10-09 13:57] LABS: Vitamin B12 1368 pg/mL (200-900)
--- NOTE | 2020-10-09 14:26 | MHC.CM.PN ---
DC to home today. No Homecare needs identified.Family provided transportation.
== END 2020-10-09 14:54 | disposition home or self-care (01) | DRG 775 ==
LOC: HO.ED 10-05 09:44 → HO.IMC 10-05 15:16
PROVIDERS: Emergency Medicine; Internal Medicine; Nurse Practitioner Acute Care; Admitting Provider Family Medicine; Emergency Provider Emergency Medicine; Visit Provider Hospitalist
DX: F10.239 Alcohol dependence with withdrawal, unspecified (principal); U07.1 COVID-19; D69.6 Thrombocytopenia, unspecified; E86.0 Dehydration; R74.01 Elevation of levels of liver transaminase levels; I10 Essential (primary) hypertension; F32.9 Major depressive disorder, single episode, unspecified; Z86.19 Personal history of other infectious and parasitic diseases; F17.210 Nicotine dependence, cigarettes, uncomplicated; Z71.6 Tobacco abuse counseling; Z79.899 Other long term (current) drug therapy
CPT/HCPCS: 36415; 71045; 76705; 80048; 80076; 80307; 80320; 81001; 81025; 82607; 82728; 82746; 83615; 83690; 83735; 84145; 85025; 85379; 85384; 85610; 86022; 86704; 86706; 86709; 86803; 87340; 87389; 96361; 96365; 96372; 99285; G0480; J1650; J2405; J2560; J3411; U0003

== ENCOUNTER → 2021-02-04 11:19 | Outpatient (BNVA) | payer OTHER, SELFPAY | PROVIDERS: PCP Internal Medicine; Visit Provider Advanced Practice Midwife ==

== ENCOUNTER 2021-02-10 13:06 | Outpatient (REF) | payer OTHER, SELFPAY ==
--- NOTE | ~2021-02-10 | US_ITS ---
EXAMINATION: PELVIC ULTRASOUND CLINICAL INFORMATION: Check IUD COMPARISON: Previous CT of the abdomen and pelvis August 2020 and pelvic ultrasound February 2007 TECHNIQUE: Transabdominal and transvaginal pelvic ultrasound was performed. Transvaginal exam was performed for better visualization of the uterus and ovaries. FINDINGS: The uterus is anteverted and measures 10.3 x 4.3 x 5.6 cm in dimension. There is an iso to hypoechoic lesion in the left high uterine body or cornua questionable for a fibroid. This measures 3 x 2.5 x 2.9 cm. This is not seen on previous exam. No other focal uterine lesion is seen. There is an IUD in satisfactory position. The endometrium does not appear thickened. The cervix is normal appearing. The right ovary is normal-appearing and measures 3 x 2.2 x 1.6 cm. The left ovary measures 2.6 x 1.6 x 1.8 cm. There is a 1.9 x 0.9 x 1 cm simple left adnexal or paraovarian cyst. There is trace fluid in the pelvis. US/US pelvic complete IMPRESSION: IUD in the uterus in satisfactory position. Question 3 x 2.5 x 2.9 cm high left uterine body fibroid. 1.9 x 0.9 x 1 cm left paraovarian adnexal cyst.
--- NOTE | ~2021-02-10 | US_ITS ---
EXAMINATION: PELVIC ULTRASOUND CLINICAL INFORMATION: Check IUD COMPARISON: Previous CT of the abdomen and pelvis August 2020 and pelvic ultrasound February 2007 TECHNIQUE: Transabdominal and transvaginal pelvic ultrasound was performed. Transvaginal exam was performed for better visualization of the uterus and ovaries. FINDINGS: The uterus is anteverted and measures 10.3 x 4.3 x 5.6 cm in dimension. There is an iso to hypoechoic lesion in the left high uterine body or cornua questionable for a fibroid. This measures 3 x 2.5 x 2.9 cm. This is not seen on previous exam. No other focal uterine lesion is seen. There is an IUD in satisfactory position. The endometrium does not appear thickened. The cervix is normal appearing. The right ovary is normal-appearing and measures 3 x 2.2 x 1.6 cm. The left ovary measures 2.6 x 1.6 x 1.8 cm. There is a 1.9 x 0.9 x 1 cm simple left adnexal or paraovarian cyst. There is trace fluid in the pelvis. US/US transvaginal IMPRESSION: IUD in the uterus in satisfactory position. Question 3 x 2.5 x 2.9 cm high left uterine body fibroid. 1.9 x 0.9 x 1 cm left paraovarian adnexal cyst.
== END 2021-02-10 13:07 | disposition home or self-care (01) ==
LOC: HO.US 13:06
PROVIDERS: PCP Internal Medicine; Visit Provider Advanced Practice Midwife
DX: Z30.431 Encounter for routine checking of intrauterine contraceptive device (principal); Z87.42 Personal history of other diseases of the female genital tract
CPT/HCPCS: 76830; 76856

== ENCOUNTER 2021-02-15 10:52 | Outpatient (REF) | payer OTHER, SELFPAY ==
[2021-02-15 15:23] LABS: Alanine Aminotransferase 20 U/L (0-31); Albumin Level 4.3 g/dL (3.5-5.0); Alkaline Phosphatase 87 U/L (39-117); Anion Gap 12 (12-20); Aspartate Amino Transferase 24 U/L (5-31); Bilirubin Total 0.6 mg/dL (0.0-1.0); Blood Urea Nitrogen 21 mg/dL (9-16); Calcium 9.3 mg/dL (8.4-10.2); Carbon Dioxide 33 mmol/L (22-29); Chloride 96 mmol/L (96-108); Estimated Glomerular Filt Rate > 60; Glucose Random 106 mg/dL (60-115); Potassium 4.1 mmol/L (3.3-5.1); Sodium 137 mmol/L (135-145); Total Protein 7.5 g/dL (6.5-8.0)
== END 2021-02-15 10:53 | disposition home or self-care (01) ==
LOC: HO.HMGCLDS 10:52
PROVIDERS: PCP Internal Medicine; Visit Provider Advanced Practice Midwife
DX: T83.32XA Displacement of intrauterine contraceptive device, initial encounter (principal); I10 Essential (primary) hypertension; J45.40 Moderate persistent asthma, uncomplicated; F41.1 Generalized anxiety disorder; K21.9 Gastro-esophageal reflux disease without esophagitis; E66.01 Morbid (severe) obesity due to excess calories; F17.200 Nicotine dependence, unspecified, uncomplicated; Z68.41 Body mass index [BMI] 40.0-44.9, adult; F17.210 Nicotine dependence, cigarettes, uncomplicated; Z30.432 Encounter for removal of intrauterine contraceptive device
CPT/HCPCS: 58301; 36415; 80053; 81025; 99212

== ENCOUNTER 2021-02-16 10:27 | Outpatient (REF) | payer OTHER, SELFPAY ==
[2021-02-16 14:33] LABS: CT PCR NOT DETECTED (Not Detect.); NG PCR NOT DETECTED (Not Detect.)
== END 2021-02-16 10:28 | disposition home or self-care (01) ==
LOC: HO.LAB 10:27
PROVIDERS: PCP Internal Medicine; Visit Provider Obstetrics & Gynecology
DX: Z30.433 Encounter for removal and reinsertion of intrauterine contraceptive device (principal)
CPT/HCPCS: 58300; 58301; 87491; 87591

== ENCOUNTER → 2021-02-24 12:15 | Outpatient (BNVA) | payer OTHER, SELFPAY | PROVIDERS: Visit Provider Advanced Practice Midwife ==

== ENCOUNTER 2021-02-26 11:12 | Outpatient (REF) | payer OTHER, SELFPAY ==
--- NOTE | ~2021-02-26 | MM_ITS ---
EXAMINATION: MM SCREENING DIGITAL BREAST TOMOSYNTHESIS, BILATERAL CLINICAL INFORMATION: Screening. Asymptomatic. The lifetime risk of breast cancer based on the Tyrer-Cuzick Model is 26%. COMPARISON: Mammography: 11/15/2019, 11/13/2018 TECHNIQUE: Digital breast tomosynthesis is performed in both the craniocaudal and mediolateral oblique views along with computer-aided detection (CAD). Synthesized 2D images are generated from the tomosynthesis. Additional bilateral CC and additional bilateral MLO views are provided. FINDINGS: There are scattered areas of fibroglandular density (ACR BI-RADS breast composition Category b). There are scattered stable fibroglandular densities in the bilateral anterior breasts with remainder of the breast predominantly fatty similar to prior studies. Background stromal densities are stable. There is no developing density or interval mass or architectural abnormality or abnormal calcifications. No significant changes from prior studies. MM/MM tomosynthesis screening BI IMPRESSION: No mammographic evidence of malignancy. ASSESSMENT: BI-RADS 1: Negative RECOMMENDATION: 1. Routine annual mammography screening. 2. The lifetime risk of breast cancer based on the Tyrer-Cuzick Model is 26%. Additional annual adjunct screening with breast MRI may be of benefit in women with a risk score of 20% or greater. This patient's information was entered into a reminder system with a target due date for their next mammogram.
== END 2021-02-26 11:13 | disposition home or self-care (01) ==
LOC: HO.MAMMO 11:12
PROVIDERS: Visit Provider Internal Medicine
DX: Z12.31 Encounter for screening mammogram for malignant neoplasm of breast (principal)
CPT/HCPCS: 77063; 77067

== ENCOUNTER → 2021-03-16 09:39 | Outpatient (BNVA) | payer OTHER, SELFPAY | PROVIDERS: Visit Provider Obstetrics & Gynecology | DX: Z30.431 Encounter for routine checking of intrauterine contraceptive device (principal) | CPT/HCPCS: 99212 ==

== ENCOUNTER 2021-06-04 08:35 | Outpatient (REF) | payer OTHER, SELFPAY ==
[2021-06-05 03:42] LABS: CT PCR NOT DETECTED (Not Detect.); NG PCR NOT DETECTED (Not Detect.)
== END 2021-06-04 08:36 | disposition home or self-care (01) ==
LOC: HO.LAB 08:35
PROVIDERS: PCP Internal Medicine; Visit Provider Obstetrics & Gynecology
DX: Z11.3 Encounter for screening for infections with a predominantly sexual mode of transmission (principal); R10.2 Pelvic and perineal pain
CPT/HCPCS: 87491; 87591; 99212

== ENCOUNTER 2021-06-15 13:49 | Outpatient (REF) | payer OTHER, SELFPAY ==
--- NOTE | ~2021-06-15 | US_ITS ---
EXAMINATION: US PELVIS CLINICAL INFORMATION: Pelvic and perineal pain COMPARISON: Pelvic ultrasound 02/10/2021 TECHNIQUE: Both transabdominal and endovaginal scanning was performed. FINDINGS: An anteverted uterus is present measuring 11.0 x 3.6 x 6.6 cm for a volume of 153 mL. A left fundal fibroid is present which is increased in size since the previous study when it measured 3.0 x 2.5 x 2.9 cm to currently 3.7 x 3.6 x 3.6 cm. An IUD is present in the uterus. The endometrium, where it is seen, measures 0.6 cm. The right ovary measures 3.9 x 2.4 x 2.3 cm for a volume of 11 mL and appears unremarkable. The left ovary measures 2.9 x 2.2 x 2.4 cm for a volume 7.9 mL. A paraovarian cyst is present in the left measuring 2.0 x 1.1 x 1.0 cm. No free fluid is present in the cul-de-sac. US/US pelvic and transvaginal IMPRESSION: 1. Increasing size of left fundal fibroid with maximal dimension of 3.7 cm at this time. 2. IUD present in good position in uterus. 3. Left paraovarian cyst.
== END 2021-06-15 13:50 | disposition home or self-care (01) ==
LOC: HO.HMGCX 13:49
PROVIDERS: PCP Internal Medicine; Visit Provider Obstetrics & Gynecology
DX: R10.2 Pelvic and perineal pain (principal)
CPT/HCPCS: 76830; 76856

== ENCOUNTER → 2021-06-29 12:46 | Outpatient (BNVA) | payer OTHER, SELFPAY | PROVIDERS: PCP Internal Medicine; Visit Provider Obstetrics & Gynecology ==

== ENCOUNTER 2021-08-04 13:24 | Outpatient (REF) | payer OTHER, SELFPAY ==
[2021-08-04 16:31] LABS: MANUAL DIFF FLAG NO
[2021-08-04 16:34] LABS: Basophils Absolute Auto 0.1 X10*3/uL (0.0-0.2); Basophils Percent Auto 0.4 % (0-2); Eosinophils Absolute Auto 0.2 X10*3/uL (0.0-0.4); Hematocrit 47.5 % (37-47); Hemoglobin 15.7 g/dl (12.0-16.0); Imm Gran Abs Auto 0.06 X10*3/uL (0.00-0.03); Imm Gran Pct Auto 0.5 % (0.0-0.4); Lymphocytes Absolute Auto 2.5 X10*3/uL (1.2-4.9); Lymphocytes Percent Auto 20.7 % (20-40); Mean Corpuscular HGB Conc 33.1 g/dl (31.0-35.0); Mean Corpuscular Hemoglobin 28.4 pg (27.0-33.0); Mean Corpuscular Volume 86.1 fL (80-98); Mean Platelet Volume 11.5 fL (9.4-12.3); Monocytes Absolute Auto 0.6 X10*3/uL (0.1-1.2); Monocytes Percent Auto 4.7 % (2-11); Neutrophils Absolute Auto 8.7 X10*3/uL (2.0-8.3); Neutrophils Percent Auto 71.7 % (45-73); Red Blood Count 5.52 X10*6/uL (4.20-5.50); Red Cell Distribution Width 12.9 % (11.0-16.0); White Blood Count 12.1 X10*3/uL (4.8-10.8)
[2021-08-04 16:49] LABS: Alanine Aminotransferase 16 U/L (0-31); Albumin Level 4.4 g/dL (3.5-5.0); Alkaline Phosphatase 81 U/L (39-117); Anion Gap 17 (12-20); Aspartate Amino Transferase 22 U/L (5-31); Bilirubin Total 0.5 mg/dL (0.0-1.0); Blood Urea Nitrogen 16 mg/dL (9-16); Calcium 9.7 mg/dL (8.4-10.2); Carbon Dioxide 30 mmol/L (22-29); Chloride 98 mmol/L (96-108); Estimated Glomerular Filt Rate > 60; Glucose Random 123 mg/dL (60-115); Potassium 4.5 mmol/L (3.3-5.1); Sodium 140 mmol/L (135-145); Total Protein 7.6 g/dL (6.5-8.0)
[2021-08-04 17:09] LABS: Platelet Count 310 X10*3/uL (160-400); TSH reflex Free T4 1.21 uIU/mL (0.32-4.0)
[2021-08-05 09:12] LABS: LDL Cholesterol Direct 111 mg/dL (<100)
== END 2021-08-04 13:25 | disposition home or self-care (01) ==
LOC: HO.HMGCLDS 13:24
PROVIDERS: PCP Internal Medicine; Visit Provider Internal Medicine
DX: Z00.01 Encounter for general adult medical examination with abnormal findings (principal); E66.01 Morbid (severe) obesity due to excess calories; F33.9 Major depressive disorder, recurrent, unspecified; F41.1 Generalized anxiety disorder; I10 Essential (primary) hypertension; K21.9 Gastro-esophageal reflux disease without esophagitis; R20.2 Paresthesia of skin; R79.89 Other specified abnormal findings of blood chemistry
CPT/HCPCS: 36415; 80053; 83721; 84443; 85025

== ENCOUNTER 2021-10-13 08:48 | Outpatient (REF) | payer OTHER, SELFPAY ==
--- NOTE | 2021-10-13 08:51 | EMG_ITS ---
This is a 46-year-old woman with a 2-year history of bilateral upper extremity numbness, pain, and tingling. PHYSICAL EXAMINATION: On examination, she is alert and oriented with normal intellectual functions. Cranial nerves II through XII are normal. No Tinel or Phalen sign. IMPRESSION: Carpal tunnel syndrome. Nerve conduction EMG study: Moderately severe carpal tunnel syndrome bilaterally, slightly worse on the right. Normal EMG of the right C5-T1 innervated muscles. MD ELHAM Duarte/LYDIA / [id number]
== END 2021-10-13 08:49 | disposition home or self-care (01) ==
LOC: HO.NEURO 08:48
PROVIDERS: Visit Provider Internal Medicine
DX: R20.2 Paresthesia of skin (principal)
CPT/HCPCS: 95885; 95913

== ENCOUNTER 2022-01-20 12:02 | Outpatient (REF) | payer OTHER, SELFPAY ==
[2022-01-20 13:54] LABS: Alanine Aminotransferase 21 U/L (0-31); Albumin Level 4.4 g/dL (3.5-5.0); Alkaline Phosphatase 88 U/L (39-117); Anion Gap 14 (12-20); Aspartate Amino Transferase 24 U/L (5-31); Bilirubin Total 0.5 mg/dL (0.0-1.0); Blood Urea Nitrogen 12 mg/dL (9-16); Calcium 9.7 mg/dL (8.4-10.2); Carbon Dioxide 31 mmol/L (22-29); Chloride 97 mmol/L (96-108); Estimated Glomerular Filt Rate > 60; Glucose Random 115 mg/dL (60-115); Potassium 4.3 mmol/L (3.3-5.1); Sodium 138 mmol/L (135-145); Total Protein 7.6 g/dL (6.5-8.0)
== END 2022-01-20 12:03 | disposition home or self-care (01) ==
LOC: HO.HMGCLDS 12:02
PROVIDERS: PCP Internal Medicine; Visit Provider Internal Medicine
DX: I10 Essential (primary) hypertension (principal)
CPT/HCPCS: 36415; 80053

== ENCOUNTER 2022-02-07 11:20 | Outpatient (REF) | payer OTHER, SELFPAY ==
[2022-02-08 03:06] LABS: CT PCR NOT DETECTED (Not Detect.); NG PCR NOT DETECTED (Not Detect.)
[2022-02-08 14:11] LABS: BV Int Neg Control Negative (Negative); BV Int Pos Control Positive (Positive)
[2022-02-10 11:00] LABS: HPV mRNA E6/E7 rflx Not Detected (Not Detected)
== END 2022-02-07 11:21 | disposition home or self-care (01) ==
LOC: HO.LAB 11:20
PROVIDERS: Visit Provider Advanced Practice Midwife
DX: Z01.419 Encounter for gynecological examination (general) (routine) without abnormal findings (principal); Z11.51 Encounter for screening for human papillomavirus (HPV); E66.01 Morbid (severe) obesity due to excess calories; G44.89 Other headache syndrome
CPT/HCPCS: 87480; 87491; 87510; 87591; 87624; 87660; 88142

== ENCOUNTER 2022-03-04 10:25 | Outpatient (REF) | payer OTHER, SELFPAY ==
--- NOTE | ~2022-03-04 | MM_ITS ---
EXAMINATION: MM SCREENING DIGITAL BREAST TOMOSYNTHESIS, BILATERAL CLINICAL INFORMATION: Screening. Asymptomatic. The lifetime risk of breast cancer based on the Tyrer-Cuzick Model is 17%. COMPARISON: Mammography: 02/26/2021, 11/15/2019, 11/13/2018 TECHNIQUE: Digital breast tomosynthesis is performed in both the craniocaudal and mediolateral oblique views along with computer-aided detection (CAD). Synthesized 2D images are generated from the tomosynthesis. Additional bilateral CC and additional bilateral MLO views are provided. FINDINGS: There are scattered areas of fibroglandular density (ACR BI-RADS breast composition Category b). There are no significant masses, abnormal calcifications, or other abnormalities. There is a stable intramammary node posterior medial left breast. The bilateral axilla and skin contours are unremarkable. No significant changes. MM/MM tomosynthesis screening BI IMPRESSION: No mammographic evidence of malignancy. ASSESSMENT: BI-RADS 2: Benign RECOMMENDATION: Routine annual mammography screening. This patient's information was entered into a reminder system with a target due date for their next mammogram.
== END 2022-03-04 10:26 | disposition home or self-care (01) ==
LOC: HO.MAMMO 10:25
PROVIDERS: PCP Internal Medicine; Visit Provider Internal Medicine
DX: Z12.31 Encounter for screening mammogram for malignant neoplasm of breast (principal)
CPT/HCPCS: 77063; 77067

== ENCOUNTER 2022-07-20 21:57 | Emergency (ER) | payer OTHER, SELFPAY ==
[2022-07-20 22:00] VITALS: BP 197/133; PULSE 120; RESP 24; TEMP 36.9; O2SAT 94; BMI 48.4
--- NOTE | 2022-07-20 22:07 | ECG_ITS ---
Test Reason : TACHY Blood Pressure : / mmHG Vent. Rate : 116 BPM Atrial Rate : 116 BPM P-R Int : 138 ms QRS Dur : 076 ms QT Int : 316 ms P-R-T Axes : 036 053 053 degrees QTc Int : 439 ms Sinus tachycardia Otherwise normal ECG When compared with ECG of 07-SEP-2020 19:17, No significant change was found Referred By: Generic ED Physician Electronically Signed By:WINSTON VASQUEZ
[2022-07-20 22:14] VITALS: BP 173/100
--- NOTE | 2022-07-20 22:28 | ED.PSYCH ---
HPI - Psych General Chief Complaint: Psychiatric Symptoms <VANIA Infante Last Filed: 07/21/22 05:09> Stated Complaint: suicidal <VANIA Infante Last Filed: 07/21/22 05:09> Time Seen by Provider: 07/20/22 22:27 <VANIA Infante Last Filed: 07/21/22 05:09> Source: patient <VANIA Infante Last Filed: 07/21/22 05:09> Mode of arrival: ambulatory <VANIA Infante Last Filed: 07/21/22 05:09> Limitations: other (poor historian, intoxicated?) <VANIA Infante Last Filed: 07/21/22 05:09> History of Present Illness HPI Narrative: 46-year-old female past medical history significant for cardiac arrhythmia, major depression, myoma, GERD, thrombocytopenia presenting to the emergency department with complaints of suicidal ideation, depression, anxiety times a few days worsening. Patient also reports that recently she relapsed with drinking, she reports that today alone she had 3 pt of vodka prior to presenting to the ED. She presented herself to the emergency department and was extremely tearful, inconsolable in triage. Patient reports that she has not been taking care of herself, and plans to kill herself by not eating. Denies visual, auditory and tactile hallucinations. Denies drugs, tobacco. Denies homicidal ideation. Denies any medical complaints at this time including chest pain, shortness of breath, headache, vision changes, dizziness, nausea, vomiting, abdominal pain. <VANIA Infante Last Filed: 07/21/22 05:09> MD complaint: suicidal ideation, feels depressed, anxiety and substance abuse <VANIA Infante Last Filed: 07/21/22 05:09> Related Data Home Medications: Home Medications Medication Instructions Recorded Confirmed acetaminophen 500 mg tablet 1 tab PO TID pain 07/20/22 07/20/22 amitriptyline 25 mg tablet 1 tab PO BEDTIME 07/20/22 07/20/22 carvedilol 12.5 mg tablet 1 tab PO BID 07/20/22 07/20/22 citalopram 20 mg tablet 1 tab PO DAILY 07/20/22 07/20/22 gabapentin 600 mg tablet 1 tab PO TID 07/20/22 07/20/22 hydroxyzine pamoate 25 mg capsule 1 cap PO DAILY PRN Anxiety 07/20/22 07/20/22 ibuprofen 800 mg tablet 1 tab PO BID pain 07/20/22 07/20/22 <VANIA Infante Last Filed: 07/21/22 05:09> Allergies/Adverse Reactions: Allergies Allergy/AdvReac Type Severity Reaction Status Date / Time trazodone [Trazodone] Allergy Severe SWELLING Verified 04/01/22 14:13 oseltamivir Allergy Unknown Unknown Verified 04/01/22 14:13 <VANIA Infante Last Filed: 07/21/22 05:09> Review of Systems Review of Systems: Constitutional : No Weight loss, No Fever, No Chills, No Fatigue, No Malaise ENT/Mouth : No sore throat, No Rhinorrhea Eyes: No Eye Pain, No Swelling, No Redness Cardiovascular : No Chest Pain, No SOB, No Dyspnea on Exertion, No Orthopnea, No Edema, No Palpitations Respiratory : No Cough, No Sputum, No Wheezing Gastrointestinal : No Nausea, No Vomiting, No Diarrhea, No Constipation, No abdominal Pain, No Hematochezia, No Melena Genitourinary : No Dysuria, No Urinary Frequency, No Hematuria, Musculoskeletal : No joint pain, No Myalgias, No Joint Swelling Skin : No Skin Lesions, No rash Neuro : No Weakness, No Numbness, No Dizziness, No Headache Psych : + Anxiety/Panic, + Depression, + SI, No HI All other systems reviewed and are negative <VANIA Infante Last Filed: 07/21/22 05:09> Yes all other systems are reviewed and are negative <VANIA Infante Last Filed: 07/21/22 05:09> [facility] Past Medical History Attestation statement: The following information was validated with the patient. <VANIA Infante Last Filed: 07/21/22 05:09> Source: old records reviewed and nursing notes reviewed <VANIA Infante Last Filed: 07/21/22 05:09> Medical History: Medical History Alcohol abuse Bipolar 1 disorder COVID-19 Depression History of abnormal uterine bleeding HTN (hypertension) PTSD (post-traumatic stress disorder) Suicidal ideation <VANIA Infante - Last Filed: 07/21/22 05:09> Family History Family History: Family History Mother Endometrial cancer Father Heart disease Other Mental health disorder Substance use disorder <VANIA Infante - Last Filed: 07/21/22 05:09> Social History Social History: Social History Household Members: Family Housing: House Do you presently have visiting nurse or other home services: No Alcohol intake: current Alcohol intake frequency: 3 or more drinks per day Alcohol type: hard liquor Patient Tobacco Use Status: Current everyday Tobacco user Cigarettes Per Day: 2 Years Smoked: 20 e-Cigarette/Vaping Use: Never Used Second Hand Smoke Exposure: No Advance Directives: Yes Advance Directives Information Provided: No Advance Directives on File: No service: No Current occupational status: unemployed Cognitive needs: No Hearing needs: No Vision needs: No <VANIA Infante - Last Filed: 07/21/22 05:09> Physical Exam Vital Signs: Vital Signs: Last Vital Signs Temp 98.4 F 07/20/22 23:31 Pulse 121 H 07/20/22 23:31 Resp 20 07/20/22 23:31 BP 134/84 07/20/22 23:31 Pulse Ox 92 07/20/22 23:31 O2 Del Method 07/20/22 23:31 BMI result Body Mass Index 48.4 vss <VANIA Infante - Last Filed: 07/21/22 05:09> Vital Signs: Last Vital Signs Temp 98.4 F 07/20/22 23:31 Pulse 121 H 07/20/22 23:31 Resp 20 07/20/22 23:31 BP 134/84 07/20/22 23:31 Pulse Ox 92 07/20/22 23:31 O2 Del Method 07/20/22 23:31 BMI result Body Mass Index 48.4 <Flavia Glass MD - Last Filed: 07/21/22 06:11> Appearance: Alert.? Oriented X3.? No acute distress.? Patient tearful, anxious, smells like alcohol. Head: Normocephalic, atraumatic, no step-offs or deformities Eyes: Pupils equal, round and reactive to light.? Neck: Normal inspection.? Neck supple.? CVS: Normal heart rate and rhythm.? Pulses normal.? Respiratory: No respiratory distress.? Breath sounds normal.? Abdomen: Soft and nontender.? Skin: Skin warm and dry.? Normal skin color.? Normal skin turgor.? Extremities: No lower extremity edema.? No calf ttp. 5/5 strength to bilateral upper and lower extremities Neuro: Oriented X 3.? No motor deficit.? No sensory deficit. CN 2-12 intact <VANIA Infante - Last Filed: 07/21/22 05:09> Course Reevaluation(s) Reevaluation #1: CBC with no acute findings. Chemistry with no acute electrolyte abnormalities requiring intervention. Ethanol elevated consistent with acute alcohol intoxication. LIZAMA positive for fentanyl. Urine clean of infection. COVID negative. At this time patient will be placed into physician observation to allow more time to be evaluated by the behavioral health team. At time observation was started patient common cooperative no acute distress will continue to monitor <VANIA Infante - Last Filed: 07/21/22 05:09> Time: 05:03 <VANIA Infante - Last Filed: 07/21/22 05:09> Reevaluation #2: Overnight, patient is to be medicated with 2 mg of Ativan. Per nurse's request, we will add 2 mg of Ativan every 4 hours p.r.n. alcohol withdrawal. <Flavia Glass MD - Last Filed: 07/21/22 06:11> Time: 06:09 <Flavia Glass MD - Last Filed: 07/21/22 06:11> MDM - Psych MDM Narrative Medical decision making narrative: 2230 46 yo F presents w/ si, anxiety, depression, heavy drinking and uncontrolled hypertension X a few days worsening. No history of alcohol withdrawal PE benign however patient inconsolable, crying, anxious patient smells like alcohol. Noted to be hypertensive and tachycardic likely secondary to anxiety, and non med compliance Plan at this time is medical clearance and evaluation with behavioral health team. <VANIA Infante - Last Filed: 07/21/22 05:09> Medical Records Attestation: I reviewed the patient's medical records. <VANIA Infante - Last Filed: 07/21/22 05:09> Lab Data Attestation: I reviewed the patient's lab results. <VANIA Infante - Last Filed: 07/21/22 05:09> Result diagrams: : 07/20/22 22:22 07/20/22 22:22 <VANIA Infante - Last Filed: 07/21/22 05:09> Labs: Lab Results 07/20/22 07/20/22 07/20/22 Range/Units 22:22 22:22 22:22 WBC 5.0 (4.8-10.8) X10*3/uL RBC 5.54 H (4.20-5.50) X10*6/uL Hgb 15.8 (12.0-16.0) g/dl Hct 47.5 H (37.0-47.0) % MCV 85.7 (80.0-98.0) fL MCH 28.5 (27.0-33.0) pg MCHC 33.3 (31.0-35.0) g/dl RDW 14.6 (11.0-16.0) % Plt Count 143 L (160-400) X10*3/uL MPV 8.5 L (9.4-12.3) fL Immature Gran % (Auto) 1.0 H (0.0-0.4) % Neut % (Auto) 36.4 L (45-73) % Lymph % (Auto) 49.8 H (20-40) % [place] % (Auto) 9.6 (2-11) % Eos % (Auto) 2.4 (0-4) % Baso % (Auto) 0.8 (0-2) % Lymph # (Auto) 2.5 (1.2-4.9) X10*3/uL [place] # (Auto) 0.5 (0.1-1.2) X10*3/uL Eos # (Auto) 0.1 (0.0-0.4) X10*3/uL Baso # (Auto) 0.0 (0.0-0.2) X10*3/uL Abs Immat Gran (auto) 0.05 H (0.00-0.03) X10*3/uL Absolute Neuts (auto) 1.8 L (2.0-8.3) x10*3/uL Absolute Nucleated RBC 0.020 H (0.0-0.012) X10*3/uL Nucleated RBC % (auto) 0.4 H (0.0-0.2) /100WBC Sodium 140 (135-145) mmol/L Potassium 3.5 (3.3-5.1) mmol/L Chloride 96 (96-108) mmol/L Carbon Dioxide 27 (22-29) mmol/L Anion Gap 21 H (12-20) BUN 11 (9-16) mg/dL Creatinine 0.83 (0.5-1.4) mg/dL Estim Creat Clear Calc 119.0 Estimated GFR > 60 Random Glucose 127 H (60-115) mg/dL Calcium 8.6 D (8.4-10.2) mg/dL Total Bilirubin 0.7 (0.0-1.0) mg/dL Direct Bilirubin 0.3 (0.0-0.5) mg/dL AST 67 H (5-31) U/L ALT 38 H (0-31) U/L Alkaline Phosphatase 100 (39-117) U/L Total Protein 7.3 (6.5-8.0) g/dL Albumin 4.0 (3.5-5.0) g/dL Lipase 77 (8-78) U/L Urine Color Urine Appearance Urine pH (5.0-8.0) Ur Specific [place] (1.005-1.025) Urine Protein (Neg-Trace) mg/dL Urine Glucose (UA) (Negative) mg/dL Urine Ketones (Negative) mg/dL Urine Blood (Negative) Urine Nitrite (Negative) Ur Leukocyte Esterase (Negative) Urine RBC (0-2) /HPF Urine WBC (0-5) /HPF Ur Squamous Epith Cells (0-2) /HPF Urine Bacteria (None Seen) Hyaline Casts (0-2) /LPF Urine Test (NEGATIVE) Urine Opiates Screen (Not Detect) Urine Fentanyl Screen (Not Detect) Ur Barbiturates Screen (Not Detect) Ur Phencyclidine Scrn (Not Detect) Ur Amphetamines Screen (Not Detect) U Benzodiazepines Scrn (Not Detect) Urine Cocaine Screen (Not Detect) U Marijuana (THC) Screen (Not Detect) Ethyl Alcohol 319 H* mg/dL COVID-19 (RAKESH) Negative (Negative) COVID-19 Clin Com See Note 07/20/22 07/20/22 07/20/22 Range/Units 22:48 22:49 22:49 WBC (4.8-10.8) X10*3/uL RBC (4.20-5.50) X10*6/uL Hgb (12.0-16.0) g/dl Hct (37.0-47.0) % MCV (80.0-98.0) fL MCH (27.0-33.0) pg MCHC (31.0-35.0) g/dl RDW (11.0-16.0) % Plt Count (160-400) X10*3/uL MPV (9.4-12.3) fL Immature Gran % (Auto) (0.0-0.4) % Neut % (Auto) (45-73) % Lymph % (Auto) (20-40) % [place] % (Auto) (2-11) % Eos % (Auto) (0-4) % Baso % (Auto) (0-2) % Lymph # (Auto) (1.2-4.9) X10*3/uL [place] # (Auto) (0.1-1.2) X10*3/uL Eos # (Auto) (0.0-0.4) X10*3/uL Baso # (Auto) (0.0-0.2) X10*3/uL Abs Immat Gran (auto) (0.00-0.03) X10*3/uL Absolute Neuts (auto) (2.0-8.3) x10*3/uL Absolute Nucleated RBC (0.0-0.012) X10*3/uL Nucleated RBC % (auto) (0.0-0.2) /100WBC Sodium (135-145) mmol/L Potassium (3.3-5.1) mmol/L Chloride (96-108) mmol/L Carbon Dioxide (22-29) mmol/L Anion Gap (12-20) BUN (9-16) mg/dL Creatinine (0.5-1.4) mg/dL Estim Creat Clear Calc Estimated GFR Random Glucose (60-115) mg/dL Calcium (8.4-10.2) mg/dL Total Bilirubin (0.0-1.0) mg/dL Direct Bilirubin (0.0-0.5) mg/dL AST (5-31) U/L ALT (0-31) U/L Alkaline Phosphatase (39-117) U/L Total Protein (6.5-8.0) g/dL Albumin (3.5-5.0) g/dL Lipase (8-78) U/L Urine Color Yellow Urine Appearance Clear Urine pH 6.5 (5.0-8.0) Ur Specific [place] <= 1.005 (1.005-1.025) Urine Protein 100 (2+) H (Neg-Trace) mg/dL Urine Glucose (UA) Negative (Negative) mg/dL Urine Ketones 15 (Negative) mg/dL Urine Blood Trace H (Negative) Urine Nitrite Negative (Negative) Ur Leukocyte Esterase Negative (Negative) Urine RBC 0-2 (0-2) /HPF Urine WBC 0-5 (0-5) /HPF Ur Squamous Epith Cells 0-2 (0-2) /HPF Urine Bacteria None Seen (None Seen) Hyaline Casts 0-2 (0-2) /LPF Urine Test NEGATIVE (NEGATIVE) Urine Opiates Screen Not Detected (Not Detect) Urine Fentanyl Screen POSITIVE H (Not Detect) Ur Barbiturates Screen Not Detected (Not Detect) Ur Phencyclidine Scrn Not Detected (Not Detect) Ur Amphetamines Screen Not Detected (Not Detect) U Benzodiazepines Scrn Not Detected (Not Detect) Urine Cocaine Screen Not Detected (Not Detect) U Marijuana (THC) Screen Not Detected (Not Detect) Ethyl Alcohol mg/dL COVID-19 (RAKESH) (Negative) COVID-19 Clin Com <VANIA Infante - Last Filed: 07/21/22 05:09> Lab Results 08/07/20/22 07/20/22 Range/Units 22:22 22:22 22:22 WBC 5.0 (4.8-10.8) X10*3/uL RBC 5.54 H (4.20-5.50) X10*6/uL Hgb 15.8 (12.0-16.0) g/dl Hct 47.5 H (37.0-47.0) % MCV 85.7 (80.0-98.0) fL MCH 28.5 (27.0-33.0) pg MCHC 33.3 (31.0-35.0) g/dl RDW 14.6 (11.0-16.0) % Plt Count 143 L (160-400) X10*3/uL MPV 8.5 L (9.4-12.3) fL Immature Gran % (Auto) 1.0 H (0.0-0.4) % Neut % (Auto) 36.4 L (45-73) % Lymph % (Auto) 49.8 H (20-40) % [place] % (Auto) 9.6 (2-11) % Eos % (Auto) 2.4 (0-4) % Baso % (Auto) 0.8 (0-2) % Lymph # (Auto) 2.5 (1.2-4.9) X10*3/uL [place] # (Auto) 0.5 (0.1-1.2) X10*3/uL Eos # (Auto) 0.1 (0.0-0.4) X10*3/uL Baso # (Auto) 0.0 (0.0-0.2) X10*3/uL Abs Immat Gran (auto) 0.05 H (0.00-0.03) X10*3/uL Absolute Neuts (auto) 1.8 L (2.0-8.3) x10*3/uL Absolute Nucleated RBC 0.020 H (0.0-0.012) X10*3/uL Nucleated RBC % (auto) 0.4 H (0.0-0.2) /100WBC Sodium 140 (135-145) mmol/L Potassium 3.5 (3.3-5.1) mmol/L Chloride 96 (96-108) mmol/L Carbon Dioxide 27 (22-29) mmol/L Anion Gap 21 H (12-20) BUN 11 (9-16) mg/dL Creatinine 0.83 (0.5-1.4) mg/dL Estim Creat Clear Calc 119.0 Estimated GFR > 60 Random Glucose 127 H (60-115) mg/dL Calcium 8.6 D (8.4-10.2) mg/dL Total Bilirubin 0.7 (0.0-1.0) mg/dL Direct Bilirubin 0.3 (0.0-0.5) mg/dL AST 67 H (5-31) U/L ALT 38 H (0-31) U/L Alkaline Phosphatase 100 (39-117) U/L Total Protein 7.3 (6.5-8.0) g/dL Albumin 4.0 (3.5-5.0) g/dL Lipase 77 (8-78) U/L Urine Color Urine Appearance Urine pH (5.0-8.0) Ur Specific [place] (1.005-1.025) Urine Protein (Neg-Trace) mg/dL Urine Glucose (UA) (Negative) mg/dL Urine Ketones (Negative) mg/dL Urine Blood (Negative) Urine Nitrite (Negative) Ur Leukocyte Esterase (Negative) Urine RBC (0-2) /HPF Urine WBC (0-5) /HPF Ur Squamous Epith Cells (0-2) /HPF Urine Bacteria (None Seen) Hyaline Casts (0-2) /LPF Urine Test (NEGATIVE) Urine Opiates Screen (Not Detect) Urine Fentanyl Screen (Not Detect) Ur Barbiturates Screen (Not Detect) Ur Phencyclidine Scrn (Not Detect) Ur Amphetamines Screen (Not Detect) U Benzodiazepines Scrn (Not Detect) Urine Cocaine Screen (Not Detect) U Marijuana (THC) Screen (Not Detect) Ethyl Alcohol 319 H* mg/dL COVID-19 (RAKESH) Negative (Negative) COVID-19 Clin Com See Note 07/20/22 07/20/22 07/20/22 Range/Units 22:48 22:49 22:49 WBC (4.8-10.8) X10*3/uL RBC (4.20-5.50) X10*6/uL Hgb (12.0-16.0) g/dl Hct (37.0-47.0) % MCV (80.0-98.0) fL MCH (27.0-33.0) pg MCHC (31.0-35.0) g/dl RDW (11.0-16.0) % Plt Count (160-400) X10*3/uL MPV (9.4-12.3) fL Immature Gran % (Auto) (0.0-0.4) % Neut % (Auto) (45-73) % Lymph % (Auto) (20-40) % [place] % (Auto) (2-11) % Eos % (Auto) (0-4) % Baso % (Auto) (0-2) % Lymph # (Auto) (1.2-4.9) X10*3/uL [place] # (Auto) (0.1-1.2) X10*3/uL Eos # (Auto) (0.0-0.4) X10*3/uL Baso # (Auto) (0.0-0.2) X10*3/uL Abs Immat Gran (auto) (0.00-0.03) X10*3/uL Absolute Neuts (auto) (2.0-8.3) x10*3/uL Absolute Nucleated RBC (0.0-0.012) X10*3/uL Nucleated RBC % (auto) (0.0-0.2) /100WBC Sodium (135-145) mmol/L Potassium (3.3-5.1) mmol/L Chloride (96-108) mmol/L Carbon Dioxide (22-29) mmol/L Anion Gap (12-20) BUN (9-16) mg/dL Creatinine (0.5-1.4) mg/dL Estim Creat Clear Calc Estimated GFR Random Glucose (60-115) mg/dL Calcium (8.4-10.2) mg/dL Total Bilirubin (0.0-1.0) mg/dL Direct Bilirubin (0.0-0.5) mg/dL AST (5-31) U/L ALT (0-31) U/L Alkaline Phosphatase (39-117) U/L Total Protein (6.5-8.0) g/dL Albumin (3.5-5.0) g/dL Lipase (8-78) U/L Urine Color Yellow Urine Appearance Clear Urine pH 6.5 (5.0-8.0) Ur Specific [place] <= 1.005 (1.005-1.025) Urine Protein 100 (2+) H (Neg-Trace) mg/dL Urine Glucose (UA) Negative (Negative) mg/dL Urine Ketones 15 (Negative) mg/dL Urine Blood Trace H (Negative) Urine Nitrite Negative (Negative) Ur Leukocyte Esterase Negative (Negative) Urine RBC 0-2 (0-2) /HPF Urine WBC 0-5 (0-5) /HPF Ur Squamous Epith Cells 0-2 (0-2) /HPF Urine Bacteria None Seen (None Seen) Hyaline Casts 0-2 (0-2) /LPF Urine Test NEGATIVE (NEGATIVE) Urine Opiates Screen Not Detected (Not Detect) Urine Fentanyl Screen POSITIVE H (Not Detect) Ur Barbiturates Screen Not Detected (Not Detect) Ur Phencyclidine Scrn Not Detected (Not Detect) Ur Amphetamines Screen Not Detected (Not Detect) U Benzodiazepines Scrn Not Detected (Not Detect) Urine Cocaine Screen Not Detected (Not Detect) U Marijuana (THC) Screen Not Detected (Not Detect) Ethyl Alcohol mg/dL COVID-19 (RAKESH) (Negative) COVID-19 Clin Com <Flavia Glass MD - Last Filed: 07/21/22 06:11> Critical Care Time Critical Care Time Critical Care Time: No <VANIA Infante - Last Filed: 07/21/22 05:09> Discharge Plan Discharge Clinical Impression: Acute anxiety, Suicidal ideation, Depression <VANIA Infante - Last Filed: 07/21/22 05:09> Prescriptions: No Action gabapentin 600 mg tablet 1 tab PO TID carvedilol 12.5 mg tablet 1 tab PO BID citalopram 20 mg tablet 1 tab PO DAILY hydroxyzine pamoate 25 mg capsule 1 cap PO DAILY PRN (Reason: Anxiety) ibuprofen 800 mg tablet 1 tab PO BID acetaminophen 500 mg tablet 1 tab PO TID amitriptyline 25 mg tablet 1 tab PO BEDTIME <VANIA Infante - Last Filed: 07/21/22 05:09>
[2022-07-20 22:29] LABS: MANUAL DIFF FLAG NO
[2022-07-20 22:38] LABS: Basophils Percent Auto 0.8 % (0-2); Eosinophils Absolute Auto 0.1 X10*3/uL (0.0-0.4); Eosinophils Percent Auto 2.4 % (0-4); Hematocrit 47.5 % (37.0-47.0); Hemoglobin 15.8 g/dl (12.0-16.0); Imm Gran Abs Auto 0.05 X10*3/uL (0.00-0.03); Lymphocytes Absolute Auto 2.5 X10*3/uL (1.2-4.9); Lymphocytes Percent Auto 49.8 % (20-40); Mean Corpuscular HGB Conc 33.3 g/dl (31.0-35.0); Mean Corpuscular Hemoglobin 28.5 pg (27.0-33.0); Mean Corpuscular Volume 85.7 fL (80.0-98.0); Mean Platelet Volume 8.5 fL (9.4-12.3); Monocytes Absolute Auto 0.5 X10*3/uL (0.1-1.2); Monocytes Percent Auto 9.6 % (2-11); NRBC Pct Auto 0.4 /100WBC (0.0-0.2); Neutrophils Absolute Auto 1.8 x10*3/uL (2.0-8.3); Neutrophils Percent Auto 36.4 % (45-73); Platelet Count 143 X10*3/uL (160-400); Red Blood Count 5.54 X10*6/uL (4.20-5.50); Red Cell Distribution Width 14.6 % (11.0-16.0)
[2022-07-20 22:52] LABS: Alanine Aminotransferase 38 U/L (0-31); Alkaline Phosphatase 100 U/L (39-117); Anion Gap 21 (12-20); Aspartate Amino Transferase 67 U/L (5-31); Bilirubin Direct 0.3 mg/dL (0.0-0.5); Bilirubin Total 0.7 mg/dL (0.0-1.0); Blood Urea Nitrogen 11 mg/dL (9-16); Calcium 8.6 mg/dL (8.4-10.2); Carbon Dioxide 27 mmol/L (22-29); Chloride 96 mmol/L (96-108); Estimated Glomerular Filt Rate > 60; Ethanol 319 mg/dL; Glucose Random 127 mg/dL (60-115); Lipase 77 U/L (8-78); Potassium 3.5 mmol/L (3.3-5.1); Sodium 140 mmol/L (135-145); Total Protein 7.3 g/dL (6.5-8.0)
[2022-07-20] MEDS: LORazepam 1 MG TABLET PO (22:54)
[2022-07-20 22:59] LABS: COVID-19 Test Negative (Negative)
[2022-07-20 23:01] LABS: Appearance Urine Clear; Color Urine Yellow; Glucose Urine UA Negative (Negative); Leukocyte Esterase Urine Negative (Negative); Nitrite Urine Negative (Negative); PH 6.5 (5.0-8.0); Specific Gravity - Urine <= 1.005 (1.005-1.025); Urine Blood Trace (Negative); Urine Ketones 15 mg/dL (Negative); Urine Protein 100 (2+) mg/dL (Neg-Trace)
[2022-07-20 23:02] LABS: UPreg QC Valid YES; Urine Pregnancy NEGATIVE (NEGATIVE)
[2022-07-20] MEDS: Metoprolol Tartrate 25 MG TABLET PO (23:02)
[2022-07-20] MEDS: lisinopriL 40 MG TABLET PO (23:02)
[2022-07-20 23:05] LABS: Bacteria Urine None Seen (None Seen); Hyaline Casts Urine 0-2 /LPF (0-2); RBC Urine 0-2 /HPF (0-2); Squamous Epithelial Cell Urine 0-2 /HPF (0-2); WBC Urine 0-5 /HPF (0-5)
[2022-07-20 23:16] LABS: Amphetamine Screen Urine Not Detected (Not Detect); Barbiturates, Urine Not Detected (Not Detect); Benzodiazepines Screen Urine Not Detected (Not Detect); Cannabinoid Screen Urine Not Detected (Not Detect); Cocaine Screen Urine Not Detected (Not Detect); Fentanyl, urine POSITIVE (Not Detect); Opiate Screen Urine Not Detected (Not Detect); Phencyclidine Screen Urine Not Detected (Not Detect)
[2022-07-20 23:31] VITALS: BP 134/84; PULSE 121; RESP 20; TEMP 36.9; O2SAT 92
[2022-07-21] MEDS: LORazepam 1 MG TABLET 2 MG PO ×2 (03:35→07:53)
--- NOTE | 2022-07-21 07:13 | PC.NURSE ---
Patient slept intermittently, currently in bed appears sleeping, Ativan 2 mg PO administered at 0300 with + effect, [facility] referral completed/confirmed/pending ETA, behavior non concerning, med rec completed/MAR updated, will continue to monitor.
--- NOTE | 2022-07-21 09:02 | PC.NURSE ---
pt is sleeping resp even and unlabored.
--- NOTE | 2022-07-21 09:10 | PC.NURSE ---
care team (shawanda) at bedside, pt aware of plan of care.
[2022-07-21] MEDS: Ibuprofen 800 MG TABLET PO (09:12)
[2022-07-21] MEDS: Gabapentin 600 MG TABLET PO (09:12)
[2022-07-21] MEDS: carvediloL 12.5 MG TABLET PO (09:12)
[2022-07-21 09:13] VITALS: BP 167/82; PULSE 102; RESP 18; TEMP 36.9; O2SAT 93
--- NOTE | 2022-07-21 09:13 | MHC.CARE ---
CARE Team briefly met with Pt who presented to [facility] ED intoxicated last evening with a BAL of 319 and reported vague SI with a plan to stop eating. Pt currently is still lethargic and reported feeling symptoms of alcohol withdrawal. Pt stated she recently had carpal tunnel surgery which caused her to stop taking her medication resulting in a relapse of alcohol last week. Pt is not endorsing current SI though CARE TEam will follow up with Pt when more alert.
--- NOTE | 2022-07-21 09:26 | PHA.MEDREC ---
med rec complete, patient was unsure of her current dose of amlodipine. She recently filled both 5mg and 10 mg tablets. I put 5 mg on her list becuase it was filled most recent. Pharmacy Consult ? Medication Reconciliation Pharmacy has completed the medication reconciliation.
[2022-07-21] MEDS: Metoprolol Succinate ER 50 MG TAB.ER.24H PO (09:57)
[2022-07-21] MEDS: lisinopriL 40 MG TABLET PO (09:57)
[2022-07-21] MEDS: hydroCHLOROthiazide 25 MG TABLET PO (09:57)
[2022-07-21] MEDS: Naltrexone HCl 50 MG TABLET PO (09:57)
[2022-07-21] MEDS: amLODIPine Besylate 5 MG TABLET PO (09:58)
--- NOTE | 2022-07-21 10:12 | PC.NURSE ---
Addendum entered by Ese Hanson 07/21/22 10:30: aware. Original Note: pt a/o x 3, c/o sob,lungs - tight/diminished in all villarreal. pt speaks in full sentences.
--- NOTE | 2022-07-21 10:30 | PC.NURSE ---
care team return to bedside, pt aware of plan of care.
--- NOTE | 2022-07-21 10:40 | MHC.CARE ---
CARE Team followed up [facility] Pt who is alert, orientated and engaged. Pt reports she relapsed 1 week ago on alcohol after not being able to take her naltroxne for a short period of time due to having carpal tunnel surgery. Pt reports she receives therapy at [facility] in [place] for the past 7 years. Pt denies current SI/HI/VH/AH. Pt expressed interest in receiving treatment for her alcohol use. Pt is support by her parents and they have custody of her son, DCF stated she has to get treatment for alcohol use to be around her son. CARE Team spoke with Pts mother who did not report safety concerns and is advocating Pt goes to detox. Plan for Pt to be referred to the recovery team for detox.
[2022-07-21] MEDS: Albuterol/Iprat 2.5/0.5MG 3 ML AMPUL.NEB INHALE (11:21)
[2022-07-21 11:28] VITALS: PULSE 89; RESP 16; O2SAT 93
[2022-07-21] MEDS: Ondansetron ODT 4 MG TAB.RAPDIS TRANSLINGU (11:28)
--- NOTE | 2022-07-21 11:30 | PC.NURSE ---
investment recovery technician (em) at bedside pt aware of plan of care for detox bed search.
--- NOTE | 2022-07-21 11:43 | MHC.RECOVRN ---
T/W met w/ pt, upon entering room, pt states feeling sick, pt able to speak w/ t/w. Pt states one week had reoccurrence on ETOH, pt states one week ago drank 8 pints Vodka and then over the week was trying to decrease use. Pt states last use was right before coming to hospital, reports drinking 3 pints. Pt states has had period of Recovery as pt was taking Naltrexone. Pt states one week ago had carpel tunnel surgery and as a result had to stop the Naltrexone for surgery. Pt interested in ATS. Pt willing to go anywhere in [place]. T/W starting bedsearch.
--- NOTE | 2022-07-21 15:03 | MHC.RECOVRN ---
T/W recieved f/u from [facility] and [facility], pt is not a candidate for ATS at [facility]. [facility] has no female beds and [facility] states pt is too medically complex for their ATS facility. T/W discussed w/ Care Team and pts RN in the pod that patient would benefit at d/c from a [facility] and making calls from the community to get into ATS. T/W will provide pt w/ recovery resources upon d/c.
== END 2022-07-21 16:14 | disposition home or self-care (01) ==
PROVIDERS: Internal Medicine; Emergency Provider Emergency Medicine Emergency Medical Services; PCP Internal Medicine
DX: F33.1 Major depressive disorder, recurrent, moderate (principal); R45.851 Suicidal ideations; I49.9 Cardiac arrhythmia, unspecified; F41.1 Generalized anxiety disorder; F43.0 Acute stress reaction; Z79.899 Other long term (current) drug therapy; Z20.822 Contact with and (suspected) exposure to COVID-19
CPT/HCPCS: 80053; 80307; 81001; 81003; 81025; 82077; 82248; 83690; 85025; 87635; 93005; 94640; 99285

== ENCOUNTER 2022-11-12 13:56 | Emergency (ER) | payer OTHER, SELFPAY ==
[2022-11-12 14:07] VITALS: BP 158/98; BP 195/114; PULSE 102; PULSE 119; RESP 20; TEMP 37.3; O2SAT 95; O2SAT 96; BMI 48.8
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
[2022-11-12 14:41] LABS: Amphetamine Screen Urine Not Detected (Not Detect); Barbiturates, Urine Not Detected (Not Detect); Benzodiazepines Screen Urine Not Detected (Not Detect); Cannabinoid Screen Urine Not Detected (Not Detect); Cocaine Screen Urine Not Detected (Not Detect); Fentanyl, urine Not Detected (Not Detect); Opiate Screen Urine Not Detected (Not Detect); Phencyclidine Screen Urine Not Detected (Not Detect)
[2022-11-12] MEDS: lisinopriL 40 MG TABLET PO (14:41)
[2022-11-12] MEDS: carvediloL 12.5 MG TABLET PO ×2 (14:41→20:18)
[2022-11-12] MEDS: LORazepam 1 MG TABLET 2 MG PO ×2 (14:42→23:22)
[2022-11-12] MEDS: hydroCHLOROthiazide 25 MG TABLET PO (14:42)
[2022-11-12] MEDS: Gabapentin 600 MG TABLET PO ×2 (14:42→20:18)
[2022-11-12] MEDS: amLODIPine Besylate 10 MG TABLET PO (14:42)
--- OUTSIDE RECORDS SUMMARY | 2022-11-12 14:45 | XMS_ITS | Continuity of Care Document ---
:1975 Author Organization [facility] Address [address] [place] [address]- Care Team Providers Name Role Phone Jag Elmore MD Primary Care Physician [place] [facility] [place] - 01/08/[address] [id number]- Encounter Diagnosis Alcohol abuse with withdrawal (Final) - 01/03/21 Hypokalemia (Final) - 01/03/21 Elevated serum lactate dehydrogenase (Final) - 01/03/21 Discharge Disposition: Transfer to [facility] Facility Attending Physician: Chico VILLAREAL, [facility] Admitting Physician: Gee Ware DO Referring Physician: Not on Staff, Referring MD Allergies, Adverse Reactions, Alerts Substance Reaction Severity Status trazodone-like drugs Active Tamiflu Active Immunizations Given and Recorded Vaccine Date Status Refusal Reason tetanus/diphtheria/pertussis, acel(Tdap)1 08/04/13 Given influenza virus vaccine, inactivated2 11/28/08 Given Pneumococcal Vaccine (oldterm)3 11/28/08 Given 1Admin Note: VIS sheet dated 12/20/20112Admin Note: VIS 06/19/[id number] Note: VIS 06/24/97 Medications CeleXA 20 mg oral tablet 20 mg, 1, tablet, By Mouth, Daily, Refills 0, Maintenance, 01/08/21 17:08:00 EST, Partial fill upon patient request if the prescription is for a schedule II opioid drug. Start Date: 01/08/21 Status: OrderedcloNIDine 0.1 mg oral tablet 0.1 mg, 1, tablet, By Mouth, Every 12 hours, Refills 0, Maintenance, 01/08/21 17:08:00 EST, Partial fill upon patient request if the prescription is for a schedule II opioid drug. Start Date: 01/08/21 Status: Orderedfolic acid 1 mg oral tablet 1 mg, 1, tablet, By Mouth, Daily, Refills 0, Maintenance, 01/08/21 17:08:00 EST, Partial fill upon patient request if the prescription is for a schedule II opioid drug. Start Date: 01/08/21 Status: Orderedgabapentin 600 mg oral tablet = 600 mg, By Mouth, Every 8 hours, 0 Refills, Maintenance, 01/08/21 17:08:00 EST, Tablet, Partial fill upon patient request if the prescription is for a schedule II opioid drug. Start Date: 01/08/21 Status: OrderedGabapentin Capsule 600 mg, Capsule, By Mouth, 01/08/21 14:00:00 EST Start Date: 01/08/21 Stop Date: 01/08/21 Status: Completedhydrochlorothiazide 25 mg oral tablet 25 mg, 1, tablet, By Mouth, Daily, Refills 0, Maintenance, 01/08/21 17:08:00 EST, Partial fill upon patient request if the prescription is for a schedule II opioid drug. Start Date: 01/08/21 Status: Orderedlisinopril 20 mg oral tablet 40 mg, 2, tablet, By Mouth, Daily, Refills 0, Maintenance, 01/08/21 17:08:00 EST, Partial fill upon patient request if the prescription is for a schedule II opioid drug. Start Date: 01/08/21 Status: Orderedlisinopril 20 mg oral tablet 40 mg, Tablet, By Mouth, 01/08/21 9:00:00 EST Start Date: 01/08/21 Stop Date: 01/08/21 Status: CompletedMultivitamin Tablet 1 tablet, By Mouth, Daily, 0 Refills, Maintenance, 01/08/21 17:08:00 EST, Tablet, Partial fill upon patient request if the prescription is for a schedule II opioid drug. Start Date: 01/08/21 Status: OrderedMurine Tears 2 drops, Eyes, Both, Daily, 0 Refills, Maintenance, 10/27/19 12:35:04 EST Start Date: 10/27/19 Status: OrderedNorvasc 10 mg oral tablet 10 mg, 1, tablet, By Mouth, Daily, Refills 0, Maintenance, 01/08/21 17:08:00 EST, Partial fill upon patient request if the prescription is for a schedule II opioid drug. Start Date: 01/08/21 Status: OrderedNorvasc 10 mg oral tablet 10 mg, Tablet, By Mouth, 01/08/21 9:00:00 EST Start Date: 01/08/21 Stop Date: 01/08/21 Status: Completedondansetron 4 mg oral tablet, disintegrating 1 tablet = 4 mg, By Mouth, 0 Refills, Maintenance, 10/27/19 12:33:00 EST Start Date: 10/27/19 Status: Orderedpantoprazole 40 mg oral delayed release tablet 1 tablet = 40 mg, By Mouth, Daily, # 30 tablet, 0 Refills, Maintenance, 10/28/19 10:20:27 EST, EC Tablet Start Date: 10/28/19 Status: OrderedPyridoxine Tablet 50 mg, By Mouth, Daily, Refills 0, Maintenance, 01/08/21 17:08:00 EST, Partial fill upon patient request if the prescription is for a schedule II opioid drug. Start Date: 01/08/21 Status: Orderedthiamine 100 mg oral tablet 100 mg, 1, tablet, By Mouth, Daily, Refills 0, Maintenance, 01/08/21 17:08:00 EST, Partial fill uponpatient request if the prescription is for a schedule II opioid drug. Start Date: 01/08/21 Status: Ordered Problem List Condition Effective Dates Status Health Status Informant Advanced maternal age Active patient(Confirmed) Asthma(Confirmed) Active Bipolar disorder(Confirmed) Active Hepatitis C(Confirmed) Active (Confirmed) Active Vital Signs Most recent to oldest 1 2 3 4 [Reference Range]: Weight 118 kg (01/03/21 8:00 PM) Oxygen Saturation 98 % 94 % 94 % [94-100 %] (01/08/21 5:00 PM) (01/08/21 11:00 AM) (01/08/21 8:00 AM) Pulse Rate [55-90 bpm] 79 bpm 70 bpm 68 bpm (01/08/21 5:00 PM) (01/08/21 11:00 AM) (01/08/21 8:00 AM) Blood Pressure 132/82 mm Hg 120/76 mm Hg 145/86 mm Hg 145/86 mm Hg [90-138/55-84 mm Hg] (01/08/21 5:00 PM) (01/08/21 11:00 AM) *H* *H* (01/08/21 9:17 AM) (01/08/21 9 :17 AM) Respiratory Rate [16-30 20 br/min 18 br/min 18 br/min br/min] (01/08/21 5:00 PM) (01/08/21 2:50 PM) (01/08/21 11:00 AM) Temperature [96.8-100.4 97.9 DegF 98.1 DegF 97.9 DegF DegF] (01/08/21 5:00 PM) (01/08/21 11:00 AM) (01/08/21 8:00 AM) Mode of Delivery Room air Room air Room air (Oxygen) (01/08/21 5:00 PM) (01/08/21 11:00 AM) (01/08/21 8:00 AM) Blood pressure sites Arm, right Arm, left Arm, left (01/08/21 5:00 PM) (01/08/21 11:00 AM) (01/08/21 8:00 AM) Temperature Route Oral Oral Oral (01/08/21 5:00 PM) (01/08/21 11:00 AM) (01/08/21 8:00 AM) Weight Obtained Via Standing scale (01/03/21 8:00 PM)
--- OUTSIDE RECORDS SUMMARY | 2022-11-12 14:45 | XMS_ITS | Continuity of Care Document ---
:1975 Author Organization [facility] Address [address] [place] [address]- Care Team Providers Name Role Phone Jag Elmore MD Primary Care Physician Encounter [facility] [place]): 09/20/21 - 10/20/21 [facility] [address] [place] [id number] Attending Physician: Lindsey Bowman Admitting Physician: AdmLindsey wheatley Referring Physician: Admtr, Ar8 Allergies, Adverse Reactions, Alerts Substance Reaction Severity Status trazodone-like drugs Active Tamiflu Active Immunizations Given and Recorded Vaccine Date Status Refusal Reason tetanus/diphtheria/pertussis, acel(Tdap)1 08/04/13 Given influenza virus vaccine, inactivated2 11/28/08 Given Pneumococcal Vaccine (oldterm)3 11/28/08 Given 1Admin Note: VIS sheet dated 12/20/20112Admin Note: VIS 06/19/[id number] Note: VIS 06/24/97 Medications CeleXA 20 mg oral tablet 20 mg, 1, tablet, By Mouth, Daily, # 30 tablet, Refills 1, Tot. Refills 1, Maintenance, 01/18/21 12:11:00 EST, Route to Pharmacy Electronically, [facility]/pharmacy #[id number], Partial fill upon patient request ifthe prescription is for a schedule II opioid drug... Start Date: 01/18/21 Status: OrderedcloNIDine 0.1 mg oral tablet 0.1 mg, 1, tablet, By Mouth, Daily at bedtime, # 30 tablet, Refills 1, Tot. Refills 1, Maintenance, 01/18/21 12:11:00 EST, Route to Pharmacy Electronically, [facility]/pharmacy #[id number], Partial fill upon patient request if the prescription is for a schedule II... Start Date: 01/18/21 Status: Orderedgabapentin 600 mg oral tablet 1 tablet = 600 mg, By Mouth, 3 times a day, # 90 tablet, 1 Refills, Maintenance, 01/18/21 12:20:00 EST, [id number] fill upon patient request if the prescription is for a schedule II opioid drug., 168, cm, 01/18/21 8:56:00 EST,... Start Date: 01/18/21 Status: Orderedhydrochlorothiazide 25 mg oral tablet 25 mg, 1, tablet, By Mouth, Daily, # 30 tablet, Refills 1, Tot. Refills 1, Maintenance, 01/18/21 12:12:00 EST, [id number] Partial fill upon patient request ifthe prescription is for a schedule II opioid drug... Start Date: 01/18/21 Status: Orderedlisinopril 40 mg oral tablet 1 tablet = 40 mg, By Mouth, Daily, # 30 tablet, 1 Refills, Maintenance, 01/18/21 12:20:00 EST, [id number] Partial fill upon patient request if the prescription is for a schedule II opioid drug., 168, cm, 01/18/21 8:56:00 EST, Height,... Start Date: 01/18/21 Status: OrderedMurine Tears 2 drops, Eyes, Both, Daily, 0 Refills, Maintenance, 10/27/19 12:35:04 EST Start Date: 10/27/19 Status: Orderednaltrexone 380 mg intramuscular injection, extended release = 380 mg, Intramuscular, Once, to be given on 02/16/2021, # 1 kit, 0 Refills, Soft Stop, 01/19/21 10:07:00 EST, Injection, [facility], Partial fill upon patient request if the prescription is for a schedule II opioid drug., 02/13/21, 168, cm,... Start Date: 01/19/21 Status: OrderedNorvasc 10 mg oral tablet 10 mg, 1, tablet, By Mouth, Daily, # 30 tablet, Refills 1, Tot. Refills 1, Maintenance, 01/18/21 12:11:00 EST, Route to Pharmacy Electronically, [facility]/pharmacy #[id number], Partial fill upon patient request ifthe prescription is for a schedule II opioid drug... Start Date: 01/18/21 Status: Ordered Problem List Condition Effective Dates Status Health Status Informant Advanced maternal age Active patient(Confirmed) Asthma(Confirmed) Active Bipolar disorder(Confirmed) Active Hepatitis C(Confirmed) Active (Confirmed) Active
--- OUTSIDE RECORDS SUMMARY | 2022-11-12 14:45 | XMS_ITS | Continuity of Care Document ---
:1975 Author Organization [facility] Adult Address [address] [place] [address]- Care Team Providers Name Role Phone Ramírez VILLAREAL, Jag Shipley Primary Care Physician Encounter [facility] [place] Date(s): 08/09/21 - 10/20/21 [facility] [address] [place] [id number]- Attending Physician: Ledy Lewis MD Allergies, Adverse Reactions, Alerts Substance Reaction Severity Status trazodone-like drugs Active Tamiflu Active Immunizations Given and Recorded Vaccine Date Status Refusal Reason tetanus/diphtheria/pertussis, acel(Tdap)1 08/04/13 Given influenza virus vaccine, inactivated2 11/28/08 Given Pneumococcal Vaccine (oldterm)3 11/28/08 Given 1Admin Note: VIS sheet dated 12/20/20112Admin Note: VIS 06/19/[id number] Note: VIS 06/24/97 Medications CeleXA 20 mg oral tablet 20 mg, 1, tablet, By Mouth, Daily, # 30 tablet, Refills 1, Tot. Refills 1, Maintenance, 01/18/21 12:11:00 EST, Route to Pharmacy Electronically, [facility]/pharmacy #[id number], Partial fill upon patient request ifthe prescription is for a schedule II opioid drug... Start Date: 01/18/21 Status: OrderedcloNIDine 0.1 mg oral tablet 0.1 mg, 1, tablet, By Mouth, Daily at bedtime, # 30 tablet, Refills 1, Tot. Refills 1, Maintenance, 01/18/21 12:11:00 EST, Route to Pharmacy Electronically, [facility]/pharmacy #[id number], Partial fill upon patient request if the prescription is for a schedule II... Start Date: 01/18/21 Status: Orderedgabapentin 600 mg oral tablet 1 tablet = 600 mg, By Mouth, 3 times a day, # 90 tablet, 1 Refills, Maintenance, 01/18/21 12:20:00 EST, Tablet, [facility]/pharmacy #[id number], Partial fill upon patient request if the prescription is for a schedule II opioid drug., 168, cm, 01/18/21 8:56:00 EST,... Start Date: 01/18/21 Status: Orderedhydrochlorothiazide 25 mg oral tablet 25 mg, 1, tablet, By Mouth, Daily, # 30 tablet, Refills 1, Tot. Refills 1, Maintenance, 01/18/21 12:12:00 EST, Route to Pharmacy Electronically, [facility]/pharmacy #[id number], Partial fill upon patient request ifthe prescription is for a schedule II opioid drug... Start Date: 01/18/21 Status: Orderedlisinopril 40 mg oral tablet 1 tablet = 40 mg, By Mouth, Daily, # 30 tablet, 1 Refills, Maintenance, 01/18/21 12:20:00 EST, Tablet, [facility]/pharmacy #[id number], Partial fill upon patient request if [...] Refills, Soft Stop, 01/19/21 10:07:00 EST, Injection, [facility], Partial fill upon patient request if the prescription is for a schedule II opioid drug., 02/13/21, 168, cm,... Start Date: 01/19/21 Status: OrderedNorvasc 10 mg oral tablet 10 mg, 1, tablet, By Mouth, Daily, # 30 tablet, Refills 1, Tot. Refills 1, Maintenance, 01/18/21 12:11:00 EST, Route to Pharmacy Electronically, [facility]/pharmacy #[id number], Partial fill upon patient request ifthe prescription is for a schedule II opioid drug... Start Date: 01/18/21 Status: Ordered Problem List Condition Effective Dates Status Health Status Informant Advanced maternal age Active patient(Confirmed) Asthma(Confirmed) Active Bipolar disorder(Confirmed) Active Hepatitis C(Confirmed) Active (Confirmed) Active
--- OUTSIDE RECORDS SUMMARY | 2022-11-12 14:45 | XMS_ITS | Continuity of Care Document ---
:1975 Author Organization [facility] Address [address] [place] [phone]- Care Team Providers Name Role Phone Jag Elmore MD Primary Care Physician Encounter [facility] [place] Date(s): 02/19/22 - 02/25/[address] [address] Encounter Diagnosis Alcohol abuse with withdrawal (Final) - 02/19/22 Suicidal ideation (Final) - 02/19/22 Discharge Disposition: A-D/C Home Attending Physician: Marilyn Mccoy MD Admitting Physician: Harsh Arcos MD Referring Physician: Not on Staff, Referring MD Allergies, Adverse Reactions, Alerts Substance Reaction Severity Status trazodone-like drugs Active Tamiflu Active Immunizations Given and Recorded Vaccine Date Status Refusal Reason tetanus/diphtheria/pertussis, acel(Tdap)1 08/04/13 Given influenza virus vaccine, inactivated2 11/28/08 Given Pneumococcal Vaccine (oldterm)3 11/28/08 Given 1Admin Note: VIS sheet dated 12/20/20112Admin Note: VIS 06/19/[id number] Note: VIS 06/24/97 Medications amitriptyline 25 mg oral tablet 25 mg, 1, tablet, By Mouth, Daily at bedtime, # 30 tablet, Refills 1, Tot. Refills 1, Maintenance, 02/25/22 11:53:00 EDT, Route to Pharmacy Electronically, [facility], 168, cm, 01/19/21 8:53:00 EST, Height, 118, kg, 01/08/21 22:24:00 EST... Start Date: 02/25/22 Status: OrderedamLODIPine 10 mg oral tablet 10 mg, 1, tablet, By Mouth, Daily, # 90 tablet, Refills 0, Tot. Refills 0, Maintenance, 02/25/22 11:46:00 EDT, Route to Pharmacy Electronically, [facility], 168, cm, 01/19/21 8:53:00 EST,Height, 118, kg, 01/08/21 22:24:00 EST, Dry Weight Start Date: 02/25/22 Status: OrderedamLODIPine 5 mg oral tablet 10 mg, Tablet, By Mouth, 02/25/22 9:00:00 EDT Start Date: 02/25/22 Stop Date: 02/25/22 Status: CompletedCeleXA 20 mg oral tablet 30 mg, 1.5, tablet, By Mouth, Daily, # 45 tablet, Refills 1, Tot. Refills 1, Maintenance, 02/25/22 11:45:00 EDT, Route to Pharmacy Electronically, [facility], 168, cm, 01/19/21 8:53:00 EST, Height, 118, kg, 01/08/21 22:24:00 EST, Dry Weight Start Date: 02/25/22 Status: Orderedgabapentin 300 mg oral capsule 600 mg, Capsule, By Mouth, 02/25/22 9:00:00 EDT Start Date: 02/25/22 Stop Date: 02/25/22 Status: Completedgabapentin 600 mg oral tablet 1 tablet = 600 mg, By Mouth, 3 times a day, # 90 tablet, 1 Refills, Maintenance, 01/18/21 12:20:00 EST, Tablet, [facility]/pharmacy #[id number], Partial fill upon patient request if the prescription is for a schedule II opioid drug., 168, cm, 01/18/21 8:56:00 EST,... Start Date: 01/18/21 Status: OrderedhydrOXYzine pamoate 25 mg oral capsule TAKE 1 CAPSULE BY MOUTH EVERY DAY NEEDED FOR ANIXETY Start Date: 02/19/22 Status: Orderedlisinopril 40 mg oral tablet 1 tablet = 40 mg, By Mouth, Daily, TAKE 1 TABLET BY MOUTH EVERY DAY, # 30 tablet, 1 Refills, Maintenance, 02/25/22 11:44:00 EDT, Tablet, [facility], Partial fill upon patient request if the prescription is for a schedule II opioid drug.,... Start Date: 02/25/22 Status: Orderedmetoprolol 25 mg oral tablet, extended release 25 mg, XL Tablet, By Mouth, 02/25/22 10:04:00 EDT Start Date: 02/25/22 Stop Date: 02/25/22 Status: Completedmetoprolol 25 mg oral tablet, extended release 25 mg, 1, tablet, By Mouth, Daily, # 90 tablet, Refills 1, Tot. Refills 1, Maintenance, 02/25/22 11:46:00 EDT, Route to Pharmacy Electronically, [facility], 168, cm, 01/19/21 8:53:00 EST,Height, 118, kg, 01/08/21 22:24:00 EST, Dry Weight Start Date: 02/25/22 Status: Orderednaltrexone 50 mg oral tablet 1 tablet = 50 mg, By Mouth, Daily, # 90 tablet, 1 Refills, Maintenance, 02/25/22 11:45:00 EDT, Tablet, [facility], Partial fill upon patient request if the prescription is for a schedule II opioid drug., 168, cm, 01/19/21 8:53:00 EST, He... Start Date: 02/25/22 Status: Orderedpantoprazole 40 mg oral delayed release tablet 1 tablet = 40 mg, By Mouth, Daily, TAKE 1 TABLET BY MOUTH EVERY DAY, # 30 tablet, 1 Refills, Maintenance, 02/25/22 11:54:00 EDT, EC Tablet, 168, cm, 01/19/21 8:53:00 EST, Height, 118, kg, 01/08/21 22:24:00 EST, Dry Weight Start Date: 02/25/22 Status: Ordered Problem List Condition Effective Dates Status Health Status Informant Advanced maternal age Active patient(Confirmed) Asthma(Confirmed) Active Bipolar disorder(Confirmed) Active Hepatitis C(Confirmed) Active (Confirmed) Active Results Radiology Reports Exam Date Time Procedure Performing Provider Status 02/19/22 8:45 PM Chest Portable Raphael Mills; Farrah (Verified) Notes:(Chest Portable) Reason For Exam: Shortness of BreathRESULT: Chest Portable Chest Portable Reason: Shortness of Breath; Clinical Question(s): Pneumonia COMPARISON: 10/27/2019 FINDINGS: LINES AND TUBES: None. LUNGS AND PLEURA: Low lung volumes with mild basilar atelectasis. Lungs are otherwise clear with no consolidation. No pleural effusion. No pneumothorax. HEART, MEDIASTINUM AND MARY ANN: Heart is normal in size. Normal upper mediastinal and hilar contour. BONES AND SOFT TISSUES: No acute abnormality. IMPRESSION: No acute abnormality. WSN: [id number] Ordering Physician: Joel Parikh Dictated By: Rudolph Ellis MD Dictated Date/Time: 02/19/22 8:50 pm Reviewed By: Rudolph Ellis MD Signed By: Rudolph Ellis MD Signed Date/Time: 02/19/22 8:50 pm Transcribed By: RAMONA Transcribed Date/Time: 02/19/22 8:49 pm Vital Signs Most recent to oldest 1 2 3 [Reference Range]: Weight 133 kg 133.9 kg 133.7 kg (02/24/22 6:25 AM) (02/21/22 5:57 AM) (02/20/22 12: 27 PM) Oxygen Saturation [94-100 %] 92 % 96 % 96 % *L* (02/25/22 4:00 AM) (02/24/22 11:00 PM) (02/25/22 7:52 AM) Pulse Rate [55-90 bpm] 88 bpm 86 bpm 73 bpm (02/25/22 11:46 AM) (02/25/22 7:52 AM) (02/25/22 4:00 AM) Blood Pressure [90-138/55-84 138/78 mm Hg 143/79 mm Hg 143 /79 mm Hg mm Hg] (02/25/22 11:46 AM) *H* *H* (02/25/22 8:00 AM) (02/25/22 7:52 AM ) Respiratory Rate [16-30 19 br/min 19 br/min 18 br/mi n br/min] (02/25/22 8:59 AM) (02/25/22 7:59 AM) (02/25/22 7:52 A M) Temperature [96.8-100.4 DegF] 97.9 DegF 97.9 DegF 98 .5 DegF (02/25/22 7:52 AM) (02/25/22 4:00 AM) (02/24/22 11:00 PM) Liters per Minute 8 L/min 8 L/min 8 L/min (02/21/22 11:00 AM) (02/21/22 8:00 AM) (02/21/22 4: 00 AM) Mode of Delivery (Oxygen) Room air Room air Room a ir (02/25/22 7:52 AM) (02/25/22 4:00 AM) (02/24/22 11:00 PM) Blood pressure sites Arm, left Arm, left Arm, left (02/25/22 7:52 AM) (02/25/22 4:00 AM) (02/24/22 11:00 PM) Temperature Route Oral Oral Oral (02/25/22 7:52 AM) (02/25/22 4:00 AM) (02/24/22 11:00 PM) Weight Obtained Via Bed scale Bed scale Bed scale (02/24/22 6:25 AM) (02/21/22 5:57 AM) (02/20/22 12: 27 PM) Social History Social History Type Response Smoking Status 10 or more cigarettes (1/2 p ack or more)/day in last 30 days entered on: 02/20/22 Sex
--- OUTSIDE RECORDS SUMMARY | 2022-11-12 14:45 | XMS_ITS | Continuity of Care Document ---
:1975 Author Organization [facility] Address [address] [place] [address]- Care Team Providers Name Role Phone Jag Elmore MD Primary Care Physician [place] [facility] [place] 01/19/21 [facility] [address] [place] [address]- Discharge Disposition: A-D/C Home Attending Physician: Ct Zabala MD Admitting Physician: Ct Zabala MD Referring Physician: Ct Zabala MD Allergies, Adverse Reactions, Alerts Substance Reaction Severity Status trazodone-like drugs Active Tamiflu Active Immunizations Given and Recorded Vaccine Date Status Refusal Reason tetanus/diphtheria/pertussis, acel(Tdap)1 08/04/13 Given influenza virus vaccine, inactivated2 11/28/08 Given Pneumococcal Vaccine (oldterm)3 11/28/08 Given 1Admin Note: VIS sheet dated 12/20/20112Admin Note: VIS 06/19/[id number] Note: VIS 06/24/97 Medications CeleXA 20 mg oral tablet 20 mg, 1, tablet, By Mouth, Daily, # 30 tablet, Refills 1, Tot. Refills 1, Maintenance, 01/18/21 12:11:00 EST, Route to Pharmacy Electronically, [facility]/pharmacy #[id number], Partial fill upon patient request ifthe prescription is for a schedule II opioid drug... Start Date: 01/18/21 Status: OrderedcloNIDine 0.1 mg oral tablet 0.1 mg, 1, tablet, By Mouth, Daily at bedtime, # 30 tablet, Refills 1, Tot. Refills 1, Maintenance, 01/18/21 12:11:00 EST, Route to Pharmacy Electronically, [facility]/pharmacy #[id number], Partial fill upon patient request if the prescription is for a schedule II... Start Date: 01/18/21 Status: Orderedgabapentin 300 mg oral capsule 600 mg, Capsule, By Mouth, 01/19/21 15:00:00 EST Start Date: 01/19/21 Stop Date: 01/19/21 Status: Completedgabapentin 300 mg oral capsule 600 mg, Capsule, By Mouth, 01/19/21 9:00:00 EST Start Date: 01/19/21 Stop Date: 01/19/21 Status: Completedgabapentin 600 mg oral tablet 1 tablet = 600 mg, By Mouth, 3 times a day, # 90 tablet, 1 Refills, Maintenance, 01/18/21 12:20:00 EST, [id number] Partial fill upon patient request if the prescription is for a schedule II opioid drug., 168, cm, 01/18/21 8:56:00 EST,... Start Date: 01/18/21 Status: Orderedhydrochlorothiazide 25 mg oral tablet 25 mg, 1, tablet, By Mouth, Daily, # 30 tablet, Refills 1, Tot. Refills 1, Maintenance, 01/18/21 12:12:00 EST, [id number] Partial fill upon patient request ifthe prescription is for a schedule II opioid drug... Start Date: 01/18/21 Status: Orderedlisinopril 40 mg oral tablet 1 tablet = 40 mg, By Mouth, Daily, # 30 tablet, 1 Refills, Maintenance, 01/18/21 12:20:00 EST, Tablet, [id number] Partial fill upon patient request [...] Refills, Soft Stop, 01/19/21 10:07:00 EST, Injection, [facility], Partial fill upon patient request if the prescription is for a schedule II opioid drug., 02/13/21, 168, cm,... Start Date: 01/19/21 Status: OrderedNorvasc 10 mg oral tablet 10 mg, 1, tablet, By Mouth, Daily, # 30 tablet, Refills 1, Tot. Refills 1, Maintenance, 01/18/21 12:11:00 EST, Route to Pharmacy Electronically, [facility]/pharmacy #[id number], Partial fill upon patient request ifthe prescription is for a schedule II opioid drug... Start Date: 01/18/21 Status: Ordered Problem List Condition Effective Dates Status Health Status Informant Advanced maternal age Active patient(Confirmed) Asthma(Confirmed) Active Bipolar disorder(Confirmed) Active Hepatitis C(Confirmed) Active (Confirmed) Active Vital Signs Most recent to oldest 1 2 3 [Reference Range]: Height 168 cm 168 cm 168 cm (01/19/21 8:53 AM) (01/18/21 5:43 PM) (01/18/21 8:5 6 AM) Weight 118 kg 118 kg (01/16/21 7:23 PM) (01/08/21 10:10 PM) Oxygen Saturation [94-100 %] 96 % 96 % 99 % (01/19/21 8:53 AM) (01/18/21 5:43 PM) (01/18/21 8:5 6 AM) Pulse Rate [55-90 bpm] 75 bpm 66 bpm 79 bpm (01/19/21 8:53 AM) (01/18/21 5:43 PM) (01/18/21 8:5 6 AM) Body Mass Index [18.5-24.99] 41.81 *>HHI* (01/08/21 10:10 PM) Blood Pressure [90-138/55-84 122/71 mm Hg 113/67 mm Hg 114 /71 mm Hg mm Hg] (01/19/21 8:53 AM) (01/18/21 5:43 PM) (01/18/21 8:5 6 AM) Respiratory Rate [16-30 16 br/min 16 br/min 16 br/mi n br/min] (01/19/21 2:09 PM) (01/19/21 9:55 AM) (01/19/21 8:5 5 AM) Temperature [96.8-100.4 DegF] 96.6 DegF 98.3 DegF 98 DegF *L* (01/18/21 5:43 PM) (01/18/21 8:56 AM) (01/19/21 8:53 AM) Mode of Delivery (Oxygen) Room air Room air Room a ir (01/18/21 5:43 PM) (01/17/21 7:25 PM) (01/16/21 5:5 3 PM) Blood pressure sites Arm, left Arm, left Arm, left (01/19/21 8:53 AM) (01/18/21 5:43 PM) (01/17/21 7:2 5 PM) Temperature Route Oral Oral Temporal (01/18/21 5:43 PM) (01/17/21 7:25 PM) (01/16/21 5:5 3 PM) Dry Weight 118 kg (01/08/21 10:10 PM) Weight Obtained Via Standing scale (01/16/21 7:23 PM) Sensory deficits None (01/08/21 10:10 PM)
[2022-11-12 14:52] LABS: COVID-19 Test Negative (Negative); IDNOW Serial# 16C4AD1C
[2022-11-12 15:17] LABS: MANUAL DIFF FLAG NO
[2022-11-12 15:25] LABS: Basophils Percent Auto 0.7 % (0-2); Eosinophils Absolute Auto 0.1 X10*3/uL (0.0-0.4); Eosinophils Percent Auto 1.2 % (0-4); Hematocrit 51.2 % (37.0-47.0); Hemoglobin 17.3 g/dl (12.0-16.0); Imm Gran Abs Auto 0.02 X10*3/uL (0.00-0.03); Imm Gran Pct Auto 0.5 % (0.0-0.4); Lymphocytes Absolute Auto 1.7 X10*3/uL (1.2-4.9); Lymphocytes Percent Auto 40.1 % (20-40); Mean Corpuscular HGB Conc 33.8 g/dl (31.0-35.0); Mean Corpuscular Hemoglobin 29.2 pg (27.0-33.0); Mean Corpuscular Volume 86.3 fL (80.0-98.0); Mean Platelet Volume 8.6 fL (9.4-12.3); Monocytes Absolute Auto 0.2 X10*3/uL (0.1-1.2); Monocytes Percent Auto 5.5 % (2-11); Neutrophils Absolute Auto 2.2 x10*3/uL (2.0-8.3); Platelet Count 160 X10*3/uL (160-400); Red Blood Count 5.93 X10*6/uL (4.20-5.50); Red Cell Distribution Width 14.6 % (11.0-16.0); White Blood Count 4.2 X10*3/uL (4.8-10.8)
[2022-11-12 15:44] LABS: Ethanol 331 mg/dL
[2022-11-12 15:47] LABS: Alanine Aminotransferase 65 U/L (0-31); Alkaline Phosphatase 86 U/L (39-117); Anion Gap 19 (12-20); Aspartate Amino Transferase 100 U/L (5-31); Bilirubin Direct 0.4 mg/dL (0.0-0.5); Blood Urea Nitrogen 23 mg/dL (9-16); Carbon Dioxide 24 mmol/L (22-29); Chloride 100 mmol/L (96-108); Creatinine Clr Calc Pharmacy 98.6; Estimated Glomerular Filt Rate > 60; Glucose Random 155 mg/dL (60-115); Magnesium 1.9 mg/dL (1.6-2.6); Potassium 4.3 mmol/L (3.3-5.1); Sodium 139 mmol/L (135-145); Total Protein 7.1 g/dL (6.5-8.0)
[2022-11-12 16:25] VITALS: BP 131/88
[2022-11-12] MEDS: chlordiazePOXIDE HCl 25 MG CAPSULE PO (16:58)
[2022-11-12] MEDS: Amitriptyline HCl 25 MG TABLET PO (20:18)
[2022-11-12 20:20] VITALS: BP 151/91; PULSE 107; RESP 17; O2SAT 94
[2022-11-12] MEDS: hydrOXYzine HCL 25 MG TABLET PO (23:22)
[2022-11-12] MEDS: QUEtiapine Fumarate 25 MG TABLET PO (23:22)
[2022-11-13 02:11] VITALS: BP 137/110; PULSE 92; RESP 17; TEMP 37.2; O2SAT 96
--- NOTE | 2022-11-13 06:32 | PC.NURSE ---
Patient was restless/intrusive/hyper-verbal/pacing, PRN ativan 2 mg administered at 2322 with + effect, patient slept through the night, no distress observed/reported, VS at baseline, compliant with her medication, med rec completed/continued/MAR active, behavior non concerning, awaiting care team evaluation in the morning, will continue to monitor.
[2022-11-13] MEDS: carvediloL 12.5 MG TABLET PO (09:05)
[2022-11-13] MEDS: Escitalopram Oxalate 20 MG TABLET PO (09:05)
[2022-11-13] MEDS: Naltrexone HCl 50 MG TABLET PO (09:05)
[2022-11-13] MEDS: lisinopriL 40 MG TABLET PO (09:05)
[2022-11-13] MEDS: amLODIPine Besylate 10 MG TABLET PO (09:05)
[2022-11-13] MEDS: hydroCHLOROthiazide 25 MG TABLET PO (09:05)
[2022-11-13] MEDS: Gabapentin 600 MG TABLET PO (09:05)
[2022-11-13 09:08] VITALS: BP 158/100; PULSE 100; RESP 20; TEMP 36.9; O2SAT 96
--- NOTE | 2022-11-13 10:03 | MHC.CARE ---
Patient was evaluated by [facility], she is not having a psychiatric crisis and determined to not need inpatient psychiatric care, is interested in detox. CARE Team will make referrals.
--- NOTE | 2022-11-13 14:04 | MHC.RECOVSUP ---
? Reason for consult Recovery Support o Current location: [facility] o Identified substance use concern: Alcohol - Seeking ATS (detox) - Support ? Intervention: o ATS bed search started 12pm/[id number] o Community resources provided o Harm reduction discussion ? Plan: o Patient to follow up with [facility] after discharge ? Additional information: Met with patient and patient wanted to go to detox.. Patient going [facility].. Patient waiting on a lyft
== END 2022-11-13 14:08 ==
PROVIDERS: Physician Assistant; Emergency Provider Emergency Medicine
DX: F10.120 Alcohol abuse with intoxication, uncomplicated (principal); Y90.8 Blood alcohol level of 240 mg/100 ml or more; R45.1 Restlessness and agitation; Z20.822 Contact with and (suspected) exposure to COVID-19; I10 Essential (primary) hypertension; F32.2 Major depressive disorder, single episode, severe without psychotic features; F17.210 Nicotine dependence, cigarettes, uncomplicated; E66.01 Morbid (severe) obesity due to excess calories; Z68.42 Body mass index [BMI] 45.0-49.9, adult; Z79.899 Other long term (current) drug therapy
CPT/HCPCS: 36415; 80048; 80076; 80307; 82077; 83735; 85025; 87635; 99284; 99285

== ENCOUNTER 2023-01-04 23:54 | Emergency (ER) | payer OTHER, SELFPAY ==
--- NOTE | ~2023-01-04 | XR_ITS ---
EXAMINATION: XR CHEST CLINICAL INFORMATION: Hypoxia. COMPARISON: 10/05/2020 chest radiograph. TECHNIQUE: 2 views of the chest were obtained. FINDINGS: No significant abnormality is noted involving the heart, lungs, mediastinum, bony thorax or soft tissues. XR/XR chest 2V IMPRESSION: No acute cardiopulmonary process.
[2023-01-05] VITALS (17 sets, daily range): BP systolic 137–193; BP diastolic 79–113; PULSE 83–110; RESP 14–21; TEMP 36.6–36.8; O2SAT 88–99; BMI 48.4
--- NOTE | 2023-01-05 01:14 | ED.ALCOHOL ---
HPI - Alcohol General Chief Complaint: ETOH/Substance Use Stated Complaint: ETOH Time Seen by Provider: 01/05/23 00:57 Source: patient Mode of arrival: EMS Limitations: no limitations History of Present Illness HPI narrative: 47-year-old female who is brought to the emergency department by ambulance for evaluation of alcohol intoxication and agitation. The patient states she has a long history of alcohol use disorder. She states that she had 7 years of sobriety but then relapsed approximately 2 weeks prior. She cannot identify specific stressor except that life is been very stressful recently and this caused her to start drinking again. She states that she has been drinking nonstop for the last 2 weeks. She states she has been drinking 100 proof vodka but cannot quantify how much she drinks. She states her last drink was 1 hour prior to coming to the emergency department patient states that she lives with her parents and her son. She states that she got upset and asked her parents to call an ambulance to bring her to the hospital. She states she also asked her parents to get her on a Section 35 so that she keep the committed to rehab otherwise she is concerned that she will continue to drink and she will from her alcohol addiction. Patient states that she does have hypertension but has been noncompliant with her medications over the last 2 weeks secondary to drinking. She denied fever, chills, rhinorrhea, sore throat, cough, chest pain, shortness of breath, nausea, vomiting or diarrhea. Related Data Home Medications Medication Instructions Recorded Confirmed carvedilol 12.5 mg tablet 1 tab PO BID 07/20/22 12/07/22 gabapentin 600 mg tablet 1 tab PO TID 07/20/22 12/07/22 hydroxyzine pamoate 25 mg capsule 1 cap PO DAILY PRN Anxiety 07/20/22 12/07/22 naltrexone 50 mg tablet 1 tab PO DAILY 07/21/22 12/07/22 citalopram 40 mg tablet 40 mg PO DAILY 11/12/22 12/07/22 quetiapine 25 mg tablet 25 mg PO BEDTIME PRN Anxiety 11/12/22 12/07/22 Previous Rx's Medication Instructions Recorded amitriptyline 25 mg tablet 25 mg PO BEDTIME #90 tabs 08/30/22 hydrochlorothiazide 25 mg tablet 25 mg PO DAILY #90 tabs 08/30/22 lisinopril 40 mg tablet 40 mg PO DAILY #90 tabs 08/30/22 amlodipine 10 mg tablet 10 mg PO DAILY 90 days #90 tabs 10/31/22 omeprazole 20 mg capsule,delayed 20 mg PO DAILY 90 days #90 caps 12/07/22 release Allergies Allergy/AdvReac Type Severity Reaction Status Date / Time trazodone [Trazodone] Allergy Severe SWELLING Verified 12/07/22 08:38 oseltamivir Allergy Unknown Unknown Verified 12/07/22 08:38 Review of Systems Review of Systems: Yes all other systems are reviewed and are negative [facility] Past Medical History [facility] Narrative: Social history: She states she lives at home with her parents and her 9-year-old son. She smokes 1 pack of cigarettes per day times many years. She states that over the last 2 weeks she has been drinking vodka continually. She denies drug use. Medical History Alcohol abuse Bipolar 1 disorder COVID-19 Depression History of abnormal uterine bleeding HTN (hypertension) PTSD (post-traumatic stress disorder) Suicidal ideation Family History Family History Mother Endometrial cancer Father Heart disease Other Mental health disorder Substance use disorder Social History Social History Household Members: Family Housing: House Do you presently have visiting nurse or other home services: No Alcohol intake: current Alcohol intake frequency: 3 or more drinks per day Alcohol type: hard liquor Patient Tobacco Use Status: Current everyday Tobacco user Cigarettes Per Day: 2 Years Smoked: 20 e-Cigarette/Vaping Use: Never Used Second Hand Smoke Exposure: No Advance Directives: No service: No Current occupational status: unemployed Cognitive needs: No Hearing needs: No Vision needs: No Physical Exam ED Vital Signs: Vital Signs - 24 hr 01/05/23 00:01 01/05/23 01:46 Temperature 98.0 F Pulse Rate 108 H 106 H Respiratory Rate 20 18 Blood Pressure 183/109 H 165/100 H Pulse Oximetry 92 90 L Oxygen Delivery Method Room Air Room Air BMI result Body Mass Index 48.4 Const Other: Awake, alert, female patient, she appears to be intoxicated, she has a strong odor of alcohol on her breath, she is cooperative and answers all questions appropriately. She has an elevated BMI of 48 HENMT Head: Yes normal to inspection, Yes normocephalic and Yes atraumatic Ears: external ears normal General nose exam: Normal external nose present Face and sinus: Yes normal facial exam Mouth: Normal oral and palatal mucosa present Throat: Yes posterior oropharynx normal Eyes General: appearance normal, both eyes and all related structures Pupils: Equal, round and reactive pupils present Neck Neck: Yes normal visual inspection, Yes no lymphadenopathy, Yes trachea midline and Yes supple Chest Chest palpation & inspection: normal inspection of the chest and normal palpation of entire chest wall Resp Effort & Inspection: normal respiratory effort and able to speak in complete sentences Auscultation: clear to auscultation bilaterally Cardio Rate: regular rate Rhythm: regular rhythm Heart sounds: S1 normal heart sound present, S2 normal heart sound present and no murmurs GI Inspection: Yes normal to inspection Palpation (GI): Soft to palpation, nontender and no guarding Auscultation: normal bowel sounds General: Yes no CVA tenderness Back/Spine/Pelvis Back: no CVA tenderness Skin General skin exam: no rashes or lesions noted Neuro Cranial nerves: Yes CN's II-XII intact bilaterally and Yes Equal, round and reactive pupils present Cognition (Neuro): normal cognition Motor exam (neuro): 5/5 motor strength present throughout Extrem General: Yes normal to inspection Psych Appearance: grossly normal Speech and movement: Normal speech and movement present Affect: normal affect Attitude: cooperative Thought process: Normal thought process present Thought content: suicidality and no homicidality Medical Decision Making Medical Decision Making MDM Narrative: 47-year-old female with a history of alcohol use disorder who had 7 years of sobriety but relapsed 2 weeks prior secondary to life stressors. She states she has been drinking vodka continually since relapsing. She was upset today and asked her or family to pursue a Section 35 tomorrow in order to be committed to a rehab facility involuntarily. She also asked her family to call an ambulance she was concerned she would continue to drink and if she did not get help. She denies being suicidal or homicidal. She has been noncompliant with her medications and is not taking her antihypertensive her psychiatric medications. She does not know what medication she takes. Her examination is consistent with acute alcohol intoxication. I ordered a CBC, CMP, ethanol level, urine drug screen, COVID-19, flu and RSV screen. Patient's hypertension will be treated with lisinopril 40 mg orally and metoprolol ER 50 mg orally. I did order a medical reconciliation on the patient as well. 0233: My independent interpretation of the patient's labs are as follows: Elevated H&H 16.7 and 50.6, this is chronic, most likely related to her smoking. Patient's BUN was elevated 18. Glucose elevated 132. AST elevated 42. ETOH level elevated 274. COVID-19, influenza and RSV are negative. Start physician observation: Patient is medically cleared. The patient will be kept in the emergency department and observed until she can be evaluated by the care team and dance coach. Patient does want to be placed on a Section 35 and she states that her family is going to pursue this tomorrow. I did consult care team to see if they can assist the family in getting a Section 12.. Also, the patient is concerned about going home and continuing to drink. This time, the patient has no signs for withdrawal but she will be watched closely in the emergency department until a disposition can be determined. Med rec is been ordered. The patient was hypertensive and we will need to follow her blood pressures while she is here as well. Differential Diagnosis Differential includes was not limited to alcohol intoxication, depression, anxiety Admission/Observation Consideration of admission/observation: Escalation of care including admission/observation considered The patient will be placed in physician observation until she can be evaluated by our care team/dance coach to assist her getting on a Section 35. Lab Data [facility] Lab Attestation statement: I reviewed the patient's lab results. Please see [facility] for discussion 01/05/23 01:36 01/05/23 01:36 Labs: Lab Results 01/05/23 01/05/23 01/05/23 Range/Units 01:36 01:36 01:36 WBC 5.7 (4.8-10.8) X10*3/uL RBC 5.81 H (4.20-5.50) X10*6/uL Hgb 16.7 H (12.0-16.0) g/dl Hct 50.6 H (37.0-47.0) % MCV 87.1 (80.0-98.0) fL MCH 28.7 (27.0-33.0) pg MCHC 33.0 (31.0-35.0) g/dl RDW 13.5 (11.0-16.0) % Plt Count 240 D (160-400) X10*3/uL MPV 8.6 L (9.4-12.3) fL Immature Gran % (Auto) 0.4 (0.0-0.4) % Neut % (Auto) 43.2 L (45-73) % Lymph % (Auto) 47.3 H (20-40) % [place] % (Auto) 7.8 (2-11) % Eos % (Auto) 0.4 (0-4) % Baso % (Auto) 0.9 (0-2) % Lymph # (Auto) 2.7 (1.2-4.9) X10*3/uL [place] # (Auto) 0.4 (0.1-1.2) X10*3/uL Eos # (Auto) 0.0 (0.0-0.4) X10*3/uL Baso # (Auto) 0.1 (0.0-0.2) X10*3/uL Abs Immat Gran (auto) 0.02 (0.00-0.03) X10*3/uL Absolute Neuts (auto) 2.5 (2.0-8.3) x10*3/uL Absolute Nucleated RBC 0.000 (0.0-0.012) X10*3/uL Nucleated RBC % (auto) 0.0 (0.0-0.2) /100WBC Sodium 143 (135-145) mmol/L Potassium 4.9 (3.3-5.1) mmol/L Chloride 103 (96-108) mmol/L Carbon Dioxide 25 (22-29) mmol/L Anion Gap 20 (12-20) BUN 18 H (9-16) mg/dL Creatinine 0.73 (0.5-1.4) mg/dL Estim Creat Clear Calc 133.9 Estimated GFR > 60 Random Glucose 132 H (60-115) mg/dL Calcium 8.5 (8.4-10.2) mg/dL Total Bilirubin 0.6 (0.0-1.0) mg/dL AST 42 H (5-31) U/L ALT 29 (0-31) U/L Alkaline Phosphatase 71 (39-117) U/L Total Protein 7.0 (6.5-8.0) g/dL Albumin 4.0 (3.5-5.0) g/dL Ethyl Alcohol 274 mg/dL Influenza Type A (PCR) NEGATIVE (Negative) Influenza Type B (PCR) NEGATIVE (Negative) RSV RNA Qual (PCR) NEGATIVE (Negative) SARS-CoV-2 RNA (RT-PCR) NEGATIVE (Negative) Medications Administered Discontinued Medications Generic Name Dose Route Start Last Admin Trade Name Fremarquita PRN Reason Stop Dose Admin Lisinopril 40 mg 01/05/23 01:16 01/05/23 01:23 Lisinopril 40 Mg Tablet PO 01/05/23 01:17 40 mg ONCE ONE Administration Protocol Metoprolol Succinate 50 mg 01/05/23 01:16 01/05/23 01:23 Metoprolol Succinate Er 50 Mg Tab.Er.24h PO 01/05/23 01:17 50 mg ONCE ONE Administration Protocol Discharge Plan Discharge Clinical Impression: Alcohol use disorder, Alcohol intoxication, Hypertension, Noncompliance with medication regimen Patient Disposition: Still a Patient Prescriptions: No Action lisinopril 40 mg tablet 40 mg PO DAILY Qty: 90 0RF hydrochlorothiazide 25 mg tablet 25 mg PO DAILY Qty: 90 0RF amitriptyline 25 mg tablet 25 mg PO BEDTIME Qty: 90 0RF amlodipine 10 mg tablet 10 mg PO DAILY 90 Days Qty: 90 0RF gabapentin 600 mg tablet 1 tab PO TID carvedilol 12.5 mg tablet 1 tab PO BID Rx Instructions: Take with meals hydroxyzine pamoate 25 mg capsule 1 cap PO DAILY PRN (Reason: Anxiety) naltrexone 50 mg tablet 1 tab PO DAILY quetiapine 25 mg Tablet 25 mg PO BEDTIME PRN (Reason: Anxiety) citalopram 40 mg Tablet 40 mg PO DAILY omeprazole 20 mg capsule,delayed release(DR/EC) 20 mg PO DAILY 90 Days Qty: 90 1RF
[2023-01-05] MEDS: Metoprolol Succinate ER 50 MG TAB.ER.24H PO (01:23)
[2023-01-05] MEDS: lisinopriL 40 MG TABLET PO ×2 (01:23→10:22)
[2023-01-05 01:41] LABS: Basophils Absolute Auto 0.1 X10*3/uL (0.0-0.2); Basophils Percent Auto 0.9 % (0-2); Eosinophils Percent Auto 0.4 % (0-4); Hematocrit 50.6 % (37.0-47.0); Hemoglobin 16.7 g/dl (12.0-16.0); Imm Gran Abs Auto 0.02 X10*3/uL (0.00-0.03); Imm Gran Pct Auto 0.4 % (0.0-0.4); Lymphocytes Absolute Auto 2.7 X10*3/uL (1.2-4.9); Lymphocytes Percent Auto 47.3 % (20-40); MANUAL DIFF FLAG NO; Mean Corpuscular Hemoglobin 28.7 pg (27.0-33.0); Mean Corpuscular Volume 87.1 fL (80.0-98.0); Mean Platelet Volume 8.6 fL (9.4-12.3); Monocytes Absolute Auto 0.4 X10*3/uL (0.1-1.2); Monocytes Percent Auto 7.8 % (2-11); Neutrophils Absolute Auto 2.5 x10*3/uL (2.0-8.3); Neutrophils Percent Auto 43.2 % (45-73); Platelet Count 240 X10*3/uL (160-400); Red Blood Count 5.81 X10*6/uL (4.20-5.50); Red Cell Distribution Width 13.5 % (11.0-16.0); White Blood Count 5.7 X10*3/uL (4.8-10.8)
[2023-01-05 02:01] LABS: Alanine Aminotransferase 29 U/L (0-31); Alkaline Phosphatase 71 U/L (39-117); Anion Gap 20 (12-20); Aspartate Amino Transferase 42 U/L (5-31); Bilirubin Total 0.6 mg/dL (0.0-1.0); Blood Urea Nitrogen 18 mg/dL (9-16); Calcium 8.5 mg/dL (8.4-10.2); Carbon Dioxide 25 mmol/L (22-29); Chloride 103 mmol/L (96-108); Creatinine Clr Calc Pharmacy 133.9; Estimated Glomerular Filt Rate > 60; Ethanol 274 mg/dL; Glucose Random 132 mg/dL (60-115); Potassium 4.9 mmol/L (3.3-5.1); Sodium 143 mmol/L (135-145)
[2023-01-05 02:17] LABS: Influenza A PCR NEGATIVE (Negative); Influenza B PCR NEGATIVE (Negative); Resp Syncy Virus RNA Qual PCR NEGATIVE (Negative); SARS COV2 PCR INHOUSE NEGATIVE (Negative)
[2023-01-05] MEDS: LORazepam 1 MG TABLET 2 MG PO ×4 (03:11→21:22)
--- NOTE | 2023-01-05 04:24 | PC.NURSE ---
Pt medicated per Jan with ativan 2 mg po for Ciwa 10. Pt able to fall asleep. pt de-stated while sleeping to 89% room air. 2 liters of oxygen applied to patient via nasal cannula.
--- NOTE | 2023-01-05 04:33 | PC.NURSE ---
Pt denies sob lung sounds clear bilaterally.
[2023-01-05 05:32] LABS: Amphetamine Screen Urine Not Detected (Not Detect); Barbiturates, Urine Not Detected (Not Detect); Benzodiazepines Screen Urine Not Detected (Not Detect); Cannabinoid Screen Urine Not Detected (Not Detect); Cocaine Screen Urine Not Detected (Not Detect); Fentanyl, urine Not Detected (Not Detect); Opiate Screen Urine Not Detected (Not Detect); Phencyclidine Screen Urine Not Detected (Not Detect)
--- NOTE | 2023-01-05 05:50 | PC.NURSE ---
Dr. Basilio aware pt c/o left leg pain, Ciwa is level 8 at this time and blood pressure elevated. Per provider will review and order ativan 2 mg.
[2023-01-05] MEDS: 0.9 % Sodium Chloride 1,000 ML 999 ML IV (06:40)
[2023-01-05] MEDS: Morphine Sulfate 4 MG/ML CARTRIDGE IVPUSH (06:41)
[2023-01-05] MEDS: Famotidine/PF 20 MG/2 ML VIAL IVPUSH (06:41)
[2023-01-05] MEDS: ondansetron HCL 4 MG/2 ML VIAL IVPUSH (06:41)
--- NOTE | 2023-01-05 06:47 | PC.NURSE ---
Pt medicated per mar.
--- NOTE | 2023-01-05 09:19 | PHA.MEDREC ---
Pharmacy Consult ? Medication Reconciliation Pharmacy has completed the medication reconciliation. Patient would not wake up. Med rec complete by claim history, which match past medical record information. Oneyda Joyner, EmeliaD
[2023-01-05] MEDS: Omeprazole 40 MG CAPSULE.DR PO (10:21)
[2023-01-05] MEDS: carvediloL 12.5 MG TABLET PO ×2 (10:22→21:08)
[2023-01-05] MEDS: amLODIPine Besylate 10 MG TABLET PO (10:23)
--- NOTE | 2023-01-05 10:30 | MHC.RECOVRN ---
Spoke with Bob Yuan in regards to parents pursuing Sect 35. Bob informed t/w that paperwork is being filled out and will be brought to [place] [address] tomorrow. Bob aware pt may not be able to stay the night in the hospital and is agreeable to pt dc back to parents house for the night.
[2023-01-05] MEDS: cloNIDine HCL 0.1 MG TABLET PO (11:45)
--- NOTE | 2023-01-05 12:00 | PC.NURSE ---
currently sleeping, skin wpd ciwa was 9, medicated w ativan, clonidine also given for bp, md and ornament setter aware of pending 35 process and plan will be to allow pt to stay as long as she wants until sect 35 is in effect
--- NOTE | 2023-01-05 12:20 | MHC.RECOVRN ---
Spoke with pts mother, Moira, who will attempt to go to [place] today, if not, will go tomorrow morning to petition for Sect 35.
--- NOTE | 2023-01-05 13:07 | PC.NURSE ---
o2 check - pt cyanotic, O2 found to be at 56%. pt refusing to wear O2. placed on 4L NC, came up to 83%, increased to 6L NC pt O2 stable at 93%.
--- NOTE | 2023-01-05 13:42 | PC.NURSE ---
now sleeping w 5lpm nc, spo2 97-98%, sr on monitor, skin wpd
--- NOTE | 2023-01-05 19:34 | PC.NURSE ---
Patient awake just came back from bathroom. assistant track coach in room talking to patient.
--- NOTE | 2023-01-05 21:15 | MHC.RECOVSUP ---
? Reason for consult:ETOH o? Current location:ED19? o? Identified substance use concern:? -? Support ? Intervention: o? Community resources provided o? Harm reduction discussion ? Plan: o? Follow up tomorrow? ? Additional information:RC met with pt, discussed ATS/ RC services, pt stated she wants to go to SEC 35. RC provided pt with RC card and resources.
--- NOTE | 2023-01-05 21:26 | PC.NURSE ---
Patients CIWA is 15 notified Cesia CARO notified ordered [id number] po. Patient like to sleep on stomach o2 sat drops to 88-90 % while sleeping refusing oxygen at this time.
[2023-01-06 02:00] VITALS: BP 135/99; PULSE 86; RESP 16; TEMP 36.6; O2SAT 94
--- NOTE | 2023-01-06 02:38 | PC.NURSE ---
Patient sleeping on back applied 3l nasal cannula O2sat had dropped to 88-91% with 2l via nasal cannula. Patient c/o abdominal pain Cesia HEAD LOADER was notified states she probably needed ativan. She got ativan 2mg po with relief.
--- NOTE | 2023-01-06 02:59 | PC.NURSE ---
report received from Rosie miranda
[2023-01-06 03:40] VITALS: BP 151/86; PULSE 87; RESP 16; TEMP 36.8; O2SAT 94
[2023-01-06 06:00] VITALS: BP 166/97; PULSE 83; RESP 16; TEMP 36.8; O2SAT 97
[2023-01-06 08:00] VITALS: BP 182/107; PULSE 89; RESP 18; TEMP 36.9; O2SAT 96
[2023-01-06] MEDS: Omeprazole 40 MG CAPSULE.DR PO (08:01)
[2023-01-06] MEDS: lisinopriL 40 MG TABLET PO (08:01)
[2023-01-06] MEDS: carvediloL 12.5 MG TABLET PO (08:01)
[2023-01-06] MEDS: amLODIPine Besylate 10 MG TABLET PO (08:01)
--- NOTE | 2023-01-06 08:33 | PC.NURSE ---
Pt alert and oriented, ambulating to the bathroom with steady gait. Requesting hospital stretcher. Pt reports generalized body pain and discomfort.
--- NOTE | 2023-01-06 10:08 | MHC.RECOVRN ---
Spoke with Moira, pts mom, who informed t/w she is leaving the courthouse now and [employer] will be on their way to pickle cutter pt for Sect 35. RN aware.
== END 2023-01-06 10:00 ==
PROVIDERS: Internal Medicine; Emergency Provider Emergency Medicine Emergency Medical Services; PCP Internal Medicine
DX: F10.120 Alcohol abuse with intoxication, uncomplicated (principal); Y90.8 Blood alcohol level of 240 mg/100 ml or more; R45.1 Restlessness and agitation; R09.02 Hypoxemia; Z20.822 Contact with and (suspected) exposure to COVID-19; Z20.828 Contact with and (suspected) exposure to other viral communicable diseases; I10 Essential (primary) hypertension; Z91.14 Patient's other noncompliance with medication regimen; F43.10 Post-traumatic stress disorder, unspecified; F17.210 Nicotine dependence, cigarettes, uncomplicated; E66.01 Morbid (severe) obesity due to excess calories; Z68.42 Body mass index [BMI] 45.0-49.9, adult; Z79.899 Other long term (current) drug therapy
CPT/HCPCS: 0241U; 36415; 71046; 80053; 80307; 82077; 83735; 85025; 96361; 96374; 96375; 99285; J2270; J2405

== ENCOUNTER 2023-03-08 10:19 | Outpatient (REF) | payer OTHER, SELFPAY ==
--- NOTE | ~2023-03-08 | MM_ITS ---
EXAMINATION: MM SCREENING DIGITAL BREAST TOMOSYNTHESIS, BILATERAL CLINICAL INFORMATION: Screening. Asymptomatic. Family history breast cancer (father, aunt, cousin). The lifetime risk of breast cancer based on the Tyrer-Cuzick Model is 25%. COMPARISON: Mammography: 03/04/2022, 02/26/2021, 11/15/2019 TECHNIQUE: Digital breast tomosynthesis is performed in both the craniocaudal and mediolateral oblique views along with computer-aided detection (CAD). Synthesized 2D images are generated from the tomosynthesis. FINDINGS: There are scattered areas of fibroglandular density (ACR BI-RADS breast composition Category b). There are no significant masses, abnormal calcifications, or other abnormalities. Breast tissue composition borders on predominantly fatty. Background stromal markings are stable. The axilla are unremarkable. MM/MM tomosynthesis screening BI IMPRESSION: No mammographic evidence of malignancy. ASSESSMENT: BI-RADS 1: Negative RECOMMENDATION: -Routine annual mammography screening. -Additional adjunct screening breast MR as clinical risk factors warrant. This patient's information was entered into a reminder system with a target due date for their next mammogram.
== END 2023-03-08 10:20 | disposition home or self-care (01) ==
LOC: HO.MAMMO 10:19
PROVIDERS: PCP Internal Medicine; Visit Provider Internal Medicine
DX: Z12.31 Encounter for screening mammogram for malignant neoplasm of breast (principal)
CPT/HCPCS: 77063; 77067

== ENCOUNTER 2025-10-17 13:47 | Emergency (ER) | payer SELFPAY ==
[2025-10-17] VITALS (8 sets, daily range): BP systolic 175–204; BP diastolic 98–181; PULSE 76–86; RESP 13–20; TEMP 36.7–36.8; O2SAT 95–99; BMI 39.6
--- NOTE | ~2025-10-17 | CT_ITS ---
CLINICAL HISTORY: Epigastric Pain CT abdomen and pelvis with contrast Comparison: None provided Findings: Lung bases are clear. No acute bony abnormalities. Liver and spleen within normal limits. Pancreas and adrenal glands unremarkable. Gallbladder is within normal limits. Punctate nonobstructing left renal stone. No bilateral ureteral stone or hydronephrosis. Abdominal aorta is normal in caliber. No free fluid or adenopathy in the pelvis. No diverticulitis. Appendix unremarkable. Uterus normal size with an IUD. No adnexal abnormality. Impression: No acute process This document has been electronically signed by: Del Ansari MD on 10/17/2025 19:14:07
--- NOTE | ~2025-10-17 | XR_ITS ---
EXAMINATION: XR CHEST CLINICAL INFORMATION: palpitations COMPARISON: January 05, 2023. TECHNIQUE: PA view of the chest was obtained. FINDINGS: Pulmonary reticular pattern. No hyperinflation. No consolidation, pleural fissure pneumothorax. Cardiomediastinal silhouette size is normal. Osseous structures are intact. Questionable 3 mm bony island left humerus. XR/XR chest 1V IMPRESSION: Posterior chronic interstitial lung disease. No overt pulmonary edema or acute airspace disease. Electronically signed by: Dimitri Louie MD 10/17/2025 03:45 PM EST RP
--- NOTE | ~2025-10-17 | CT_ITS ---
CLINICAL HISTORY: PE r o CT angiogram chest/pulmonary arteries with contrast Multiplanar reconstructions and MIPS Comparison: None provided Findings: No filling defects are noted to suggest pulmonary embolus. Main pulmonary artery normal in caliber. Thoracic aorta normal caliber without dissection. Heart size normal. Great vessel origins patent. Dense coronary calcifications. No significant focal parenchymal abnormalities. No significant mediastinal or hilar adenopathy. No free pleural fluid. No acute bony abnormality noted. Impression: No evidence of pulmonary embolus This document has been electronically signed by: Del Ansari MD on 10/17/2025 19:09:59
--- NOTE | 2025-10-17 13:48 | ECG_ITS ---
Test Reason : cp Blood Pressure : */* mmHG Vent. Rate : 106 BPM Atrial Rate : 106 BPM P-R Int : 154 ms QRS Dur : 68 ms QT Int : 330 ms P-R-T Axes : 44 36 45 degrees QTcB Int : 438 ms Sinus tachycardia Otherwise normal ECG When compared with ECG of 20-Jul-2022 22:10, No significant change was found Referred By: Generic ED Physician Electronically Signed By: SUSY ESCALANTE
--- NOTE | 2025-10-17 15:25 | ED_ITS ---
HPI - Chest Pain General Chief Complaint: Chest Pain Stated Complaint: CP, sob Time Seen by Provider: 10/17/25 16:01 History of Present Illness ED Provider: Sharonda Lou HPI narrative: 50-year-old female with medical history significant for JEFERSON, depression, history of hepatitis-C, cardiac arrhythmia, prior alcohol abuse now in 2 years remission, GERD, hypertension, thrombocytopenia, chronically elevated LFTs presents to the ED with chief complaint of generalized abdominal pain as well as epigastric pain, and occasional substernal discomfort described as burning. Patient reports that this has been ongoing for the past several weeks, she has chronic abdominal pain but this pain has become more severe, making it difficult for her to sleep at night. She does describe it as a band across the upper abdomen. Endorsing nausea and vomiting, without diarrhea or constipation. No fevers, chills. No substernal chest pain or pressure, but does endorse occasional palpitations. Does feel as though the pain takes her breath away. No urinary complaints including dysuria, hematuria, urgency or frequency. Endorses intermittent marijuana use, roughly 3 times per week but no other substance use. No recent travel. Related Data Home Medications ?Medication ?Instructions ?Recorded ?Confirmed carvedilol 12.5 mg tablet 1 tab PO BID 07/20/22 gabapentin 600 mg tablet 1 tab PO TID 07/20/22 hydroxyzine pamoate 25 mg capsule 1 cap PO DAILY PRN A nxiety 07/20/22 01/05/23 naltrexone 50 mg tablet 1 tab PO DAILY 07/21/2208/19 citalopram 40 mg tablet 40 mg PO DAILY 11/12/2208/19 quetiapine 25 mg tablet 25 mg PO BEDTIME PRN Anxiety 11/12/22 01/05/23 Previous Rx's ?Medication ?Instructions ?Recorded amitriptyline 25 mg tablet 25 mg PO BEDTIME #90 tabs 1 hydrochlorothiazide 25 mg tablet 25 mg PO DAILY #90 ta bs 08/30/22 lisinopril 40 mg tablet 40 mg PO DAILY #90 tabs 03/18 amlodipine 10 mg tablet 10 mg PO DAILY 90 days #90 t abs 10/31/22 omeprazole 20 mg capsule,delayed 20 mg PO DAILY 90 day s #90 caps 12/07/22 release amlodipine 10 mg tablet 10 mg PO DAILY 30 days #30 t abs 10/17/25 hydroxyzine HCl 25 mg tablet 25 mg PO BID PRN anxiety 7 days 10/17/25 #14 tabs Allergies Allergy/AdvReac Type Severity Reaction Status Date / Time trazodone (Trazodone) Allergy Severe SWELLING Verified 10/17/25 13:58 oseltamivir Allergy Unknown Unknown Verified 10/17/25 13:58 Review of Systems 2 Review of Systems: ROS is otherwise negative unless mentioned in HPI. [facility] Past Medical History Medical History Alcohol abuse Bipolar 1 disorder COVID-19 Depression History of abnormal uterine bleeding HTN (hypertension) PTSD (post-traumatic stress disorder) Suicidal ideation Family History Family History Mother Endometrial cancer Father Heart disease Other Mental health disorder Substance use disorder Social History Social History Household Members: Family Housing: House Do you presently have visiting nurse or other home services: No Alcohol intake: current Alcohol intake frequency: 3 or more drinks per day Alcohol type: hard liquor Comment: 1:1 for safety Patient Tobacco Use Status: Current everyday Tobacco user Cigarettes Per Day: 2 Years Smoked: 20 Smoked in Last 30 Days: No e-Cigarette/Vaping Use: Never Used Second Hand Smoke Exposure: No Use of substances other than those prescribed or required for medical reasons: No Advance Directives: No Advance Directives Information Provided: Yes service: No Current occupational status: unemployed Cognitive needs: No Hearing needs: No Vision needs: No Physical Exam 2 Exam: Exam: Nursing notes and vital signs reviewed. Constitutional: Well-appearing, NAD. Alert. Oriented X3. Eyes: Pupils equal, round and reactive to light. ENT: Pharynx normal. Neck: Normal inspection. Neck supple. CVS: Normal heart rate and rhythm. Pulses normal. Respiratory: No respiratory distress. Breath sounds normal. Abdomen: Soft, nondistended. Epigastric abdominal tenderness on exam. Bowel sounds active x4. No CVA tenderness bilaterally. Skin: Skin warm and dry. Normal skin color. Extremities: No lower extremity edema. Neuro: Oriented X 3. No motor deficit. Vital Signs: Vital Signs: Last Vital Signs Temp 98.2 F 10/17/25 22:58 Pulse 79 10/17/25 22:58 Resp 16 10/17/25 22:58 BP 175/101 H 10/17/25 22:58 Pulse Ox 98 10/17/25 22:58 O2 Del Method Room Air 10/17/25 22:58 BMI result Body Mass Index 39.6 Course Course Course Narrative: RME: 60-year-old female presents to ED for palpitation chest pain for few weeks. EKG labs x-ray ordered Medications Administered Discontinued Medications Generic Name Dose Route Start Last Admin Trade Name Freq PRN Reason Stop Dose Admin Amlodipine Besylate 10 mg 10/17/25 20:51 10/17/25 20:59 Amlodipine Besylate 10 Mg Tablet PO 10/17/25 20:52 10 mg ONCE ONE Administration Protocol Sodium Chloride 1,000 mls @ 999 mls/hr 10/17/25 16:53 10/17/25 18:14 Ns IV 10/17/25 17:53 Infused .Q1H1M ONE Infusion Iohexol 100 ml 10/17/25 18:37 10/17/25 18:37 Iohexol 350 Mg/Ml 100 Ml Infus..Btl IV 10/17/25 18:38 65 ml ONCE ONE Administration Lorazepam 0.5 mg 10/17/25 20:51 10/17/25 21:00 Lorazepam 0.5 Mg Tablet PO 10/17/25 20:52 0.5 mg ONCE ONE Administration Morphine Sulfate 4 mg 10/17/25 16:53 10/17/25 17:12 Morphine Sulfate 4 Mg/Ml Cartridge IVPUSH 10/17/25 16:54 4 mg ONCE ONE Administration Protocol Ondansetron HCl 4 mg 10/17/25 16:53 10/17/25 17:12 Ondansetron Hcl 4 Mg/2 Ml Vial IVPUSH 10/17/25 16:54 4 mg ONCE ONE Administration Pantoprazole Sodium 40 mg 10/17/25 16:53 10/17/25 17:13 Pantoprazole Sodium 40 Mg/10 Ml Vial IVPUSH 10/17/25 16:54 40 mg ONCE ONE Administration Medical Decision Making Medical Decision Making MDM Narrative: On exam she overall appears well. She does have some epigastric abdominal tenderness. There is a variety of causes to explain her symptoms. Upon my assessment her basic lab work has returned, which shows no leukocytosis, mildly elevated BUN at 21 with normal creatinine, elevated total bilirubin at 1.2 however it has been higher previously, and persistently elevated LFTs. Troponin is normal at 13.3, we will add on repeat. ProBNP is mildly elevated 353, nonspecific. Lipase of 29. Urinalysis shows some protein but no signs of infection. Negative viral panel for COVID, flu, RSV. Given the variety of differentials will obtain CT imaging of the chest, abdomen and pelvis and rule out PE, pancreatitis, esophagitis, cholecystitis. We will administer a fluid bolus, antiemetic and pain control. 1814-- repeat troponin is 15.8. Pending imaging. 1939-- reportedly feeling much better. CT imaging is overall reassuring at this time. We will p.o. trial prior to discharge home. 2039-- able to tolerate p.o. trial, however blood pressures were noted to be significantly elevated. Patient began crying, is very anxious, reporting that she does not have appropriate follow up care because she is not currently have insurance. She was previously on antianxiety medications, but does not currently have a therapist either. In the ED we will trial a 1 time dose of 0.5 mg oral Ativan, as well as home dose of 10 mg of amlodipine that she previously was on. We will reassess for blood pressure improvement. We will then discharge home with oral hydroxyzine for mood that can be used as needed, as symptoms appear to be likely related to anxiety, as workup was overall reassuring. 2244-- BP has improved. She is much more calm. We will discharge home with oral amlodipine given she was previously on this medication, she was given resources by nursing staff for primary care, psychiatry, therapist outpatient. I will also list these at her discharge instructions. I will prescribe her hydroxyzine as well, as she was on this previously. Provided return precautions to the ED, patient is agreeable and expressed understanding. Differential Diagnosis Differential Diagnoses: The differential diagnosis associated with the presentation includes PE, ACS, mi, gastritis, esophagitis, pancreatitis, cholecystitis, cholangitis Admission/Observation Consideration of admission/observation: Escalation of care including admission/observation considered Lab Data MDM Lab Attestation statement: I reviewed the patient's lab results. (Chronic elevation in bilirubin, LFTs.) 10/17/25 15:31 10/17/25 15:31 Labs: Lab Results 10/17/25 10/17/25 Range/Units 15:31 17:07 WBC 7.6 (4.8-10.8) X10*3/uL RBC 5.15 (4.20-5.50) X10*6/uL Hgb 15.2 (12.0-16.0) g/dl Hct 43.0 (37.0-47.0) % MCV 83.5 (80.0-98.0) fL MCH 29.5 (27.0-33.0) pg MCHC 35.3 H (31.0-35.0) g/dl RDW 11.9 (11.0-16.0) % Plt Count 253 (160-400) X10*3/uL MPV 9.5 (9.4-12.3) fL Immature Gran % (Auto) 0.4 (0.0-0.4) % Neut % (Auto) 70.1 (45-73) % Lymph % (Auto) 19.8 L (20-40) % [place] % (Auto) 7.9 (2-11) % Eos % (Auto) 0.9 (0-4) % Baso % (Auto) 0.9 (0-2) % Lymph # (Auto) 1.5 (1.2-4.9) X10*3/uL [place] # (Auto) 0.6 (0.1-1.2) X10*3/uL Eos # (Auto) 0.1 (0.0-0.4) X10*3/uL Baso # (Auto) 0.1 (0.0-0.2) X10*3/uL Abs Immat Gran (auto) 0.03 (0.00-0.03) X10*3/uL Absolute Neuts (auto) 5.3 (2.0-8.3) x10*3/uL Absolute Nucleated RBC 0.000 (0.0-0.012) X10*3/uL Nucleated RBC % (auto) 0.0 (0.0-0.2) /100WBC PT 10.8 L (11.2-13.5) SEC INR 0.9 (0.9-1.1) APTT 26.7 (26.7-34.1) SEC Sodium 139 (135-145) mmol/L Potassium 3.8 (3.3-5.1) mmol/L Chloride 102 (96-108) mmol/L Carbon Dioxide 28 (22-29) mmol/L Anion Gap 13 (12-20) BUN 21 H (9-16) mg/dL Creatinine 0.68 (0.5-1.4) mg/dL Estim Creat Clear Calc 123.8 Estimated GFR > 60 Random Glucose 107 (60-115) mg/dL Calcium 9.0 (8.4-10.2) mg/dL Total Bilirubin 1.2 H (0.0-1.0) mg/dL Direct Bilirubin 0.4 (0.0-0.5) mg/dL AST 63 H (5-31) U/L ALT 64 H (0-31) U/L Alkaline Phosphatase 78 (39-117) U/L Troponin I High Sens 13.3 15.8 (<3.5-17.0) ng/L NT-Pro-B Natriuret Pep 353.0 H (<300) pg/mL Total Protein 7.6 (6.5-8.0) g/dL Albumin 4.7 (3.5-5.0) g/dL Lipase 29 (8-78) U/L Urine Color Yellow Urine Appearance Clear Urine pH 6.0 (5.0-9.0) Ur Specific [place] 1.025 (1.005-1.025) Urine Protein 30 (1+) H (Neg-Trace) mg/dL Urine Glucose (UA) Negative (Negative) mg/dL Urine Ketones 15 (Negative) mg/dL Urine Blood Negative (Negative) Urine Nitrite Negative (Negative) Ur Leukocyte Esterase Negative (Negative) Urine RBC 0-2 (0-2) /HPF Urine WBC 0-5 (0-5) /HPF Ur Squamous Epith Cells 3-5 (0-2) /HPF Urine Bacteria Trace (None Seen) Hyaline Casts 0-2 (0-2) /LPF Influenza Type A (PCR) NEGATIVE (Negative) Influenza Type B (PCR) NEGATIVE (Negative) RSV RNA Qual (PCR) NEGATIVE (Negative) SARS-CoV-2 RNA (RT-PCR) NEGATIVE (Negative) Independent Interpretation I performed an independent interpretation of an: EKG and CT Scan Interpretation: Rate: 106 Rhythm: ST [place]: 44/36/45 Normal P waves. Normal DAVIS. Normal QRS complex. ST T wave : No elevations, depressions. qTC: 438 prior studies: No significant change The study has been interpreted contemporaneously by me. I have reviewed the patient's imaging and agree with the radiologist's findings. Radiology Impression Discussion of test interpretation with radiology: I have reviewed the radiologist's reading. Radiologist Impression: CT A/P: Impression: No acute process CTA PE: Impression: No evidence of pulmonary embolus Independent Historian None External Record Review External record reviewed: Outpatient record and Prior outpatient labs Chronic Conditions Patient?s care impacted by: Diabetes, Hypertension and Other (ETOH use) Social Determinants Patient?s care significantly limited by Social Determinants of Health including: Inadequate housing, Low income, Alcoholism and drug addiction in family, Problems related to primary support group and Problems related to employment Discharge Plan Discharge Clinical Impression: Abdominal pain, Anxiety, HBP (high blood pressure) Patient Disposition: Home, Self-Care Instructions: Heart Healthy Diet (DC), Abdominal Pain (ED) Additional Instructions: As we discussed, you had an extensive workup in the emergency department today. Your imaging, lab work, etc was overall very reassuring. We would like for you to follow-up with your PCP within 1 week. I have also resources below for Psychiatry, as well as Cardiology. Please return to the ED for reassessment at any time with any worsening or new complaints. Please note, I have refilled your prescriptions for amlodipine, as well as hydroxyzine. Please use these medications as prescribed. With any worsening complaints, return to the ED for reassessment. Prescriptions: New amlodipine 10 mg tablet 10 mg PO DAILY 30 Days Qty: 30 0RF hydroxyzine HCl 25 mg tablet 25 mg PO BID PRN (Reason: anxiety) 7 Days Qty: 14 0RF No Action lisinopril 40 mg tablet 40 mg PO DAILY Qty: 90 0RF hydrochlorothiazide 25 mg tablet 25 mg PO DAILY Qty: 90 0RF amitriptyline 25 mg tablet 25 mg PO BEDTIME Qty: 90 0RF amlodipine 10 mg tablet 10 mg PO DAILY 90 Days Qty: 90 0RF gabapentin 600 mg tablet 1 tab PO TID carvedilol 12.5 mg tablet 1 tab PO BID Rx Instructions: Take with meals hydroxyzine pamoate 25 mg capsule 1 cap PO DAILY PRN (Reason: Anxiety) naltrexone 50 mg tablet 1 tab PO DAILY quetiapine 25 mg Tablet 25 mg PO BEDTIME PRN (Reason: Anxiety) citalopram 40 mg Tablet 40 mg PO DAILY omeprazole 20 mg capsule,delayed release(DR/EC) 20 mg PO DAILY 90 Days Qty: 90 1RF Referrals: [facility] [Provider Group] [facility] [Provider Group, Psychiatry] Physician,None [Primary Care Provider, Medical] Interventions: ED Discharge Assessment Last Done: 10/17/25 22:58 Discharge Date/Time: 10/17/25 22:58 Print Language: Azerbaijani
[2025-10-17 15:51] LABS: MANUAL DIFF FLAG NO
[2025-10-17 15:52] LABS: Hematocrit 43.0 % (37.0-47.0); Hemoglobin 15.2 g/dl (12.0-16.0); Imm Gran Abs Auto 0.03 X10*3/uL (0.00-0.03); Imm Gran Pct Auto 0.4 % (0.0-0.4); Lymphocytes Absolute Auto 1.5 X10*3/uL (1.2-4.9); Mean Corpuscular HGB Conc 35.3 g/dl (31.0-35.0); Mean Corpuscular Hemoglobin 29.5 pg (27.0-33.0); Mean Corpuscular Volume 83.5 fL (80.0-98.0); NRBC Abs Auto 0.000 X10*3/uL (0.0-0.012); NRBC Pct Auto 0.0 /100WBC (0.0-0.2); Platelet Count 253 X10*3/uL (160-400); Red Blood Count 5.15 X10*6/uL (4.20-5.50); White Blood Count 7.6 X10*3/uL (4.8-10.8)
[2025-10-17 16:00] LABS: INTERNATIONAL NORM RATIO 0.9 (0.9-1.1); Prothrombin Time 10.8 SEC (11.2-13.5)
[2025-10-17 16:03] LABS: Partial Thromboplastin Time 26.7 SEC (26.7-34.1)
[2025-10-17 16:09] LABS: Alanine Aminotransferase 64 U/L (0-31); Albumin Level 4.7 g/dL (3.5-5.0); Alkaline Phosphatase 78 U/L (39-117); Anion Gap 13 (12-20); Aspartate Amino Transferase 63 U/L (5-31); Blood Urea Nitrogen 21 mg/dL (9-16); Calcium 9.0 mg/dL (8.4-10.2); Carbon Dioxide 28 mmol/L (22-29); Chloride 102 mmol/L (96-108); Creatinine Clr Calc Pharmacy 123.8; Estimated Glomerular Filt Rate > 60; Potassium 3.8 mmol/L (3.3-5.1); Sodium 139 mmol/L (135-145); Total Protein 7.6 g/dL (6.5-8.0)
--- OUTSIDE RECORDS SUMMARY | 2025-10-17 16:13 | XMS_ITS | Patient Health Record ---
Author Organization [facility] Address [address] [place] [address] Care Team Providers Care Gate Clerk Name Role Phone Lulu Brar Unavailable [phone] Reason For Referral No Information Medications Medication SIG (Take, Route, Fr equency, Duration) Notes Start Date End Date Status Vitamins 1 ORAL daily; Duration: -3 Jone-MJ 12/24 Active Problems Problem Type SNOMED Code ICD Code Onset Dates Problem Status W/U Status Risk Notes Problem Female genital organ symptoms (977005823) Other specified symptom associated with female genital organs (625.8) Active confirmed Major Problem care (300691448) Supervision of other normal (V22.1) Active confirmed Diag Plan Of Treatment No Information Insurance Providers Payer Name Payer Address Payer Phone Subscriber Number Group Number Insured Name Patient Relationship to Insured Coverage Start Date Coverage End Date [employer] [place] [address] [place] [address] [id number] JOHN WONG Self - patient is the insured
--- OUTSIDE RECORDS SUMMARY | 2025-10-17 16:13 | XMS_ITS | Clinical Summary ---
Author Organization [facility] it Address [address] [place] [address] Care Team Providers Care Flat Bed Knitter Name Role Phone Tiffany Bass MD Primary Care Provider [phone] Surgical History Surgery Date Site/Laterality Comments CARPAL TUNNEL RELEASE 07/13/2022 Right PROCEDURE: [place] NEUROPLASTY &/TRANSPOS MEDIAN NRV CARPAL TUNNE; COMMENT: Dr. Hughes Medical History Medical History Date Comments Essential hypertension DX:Essent ial hypertension Esophageal reflux DX:Esophageal reflux Asthma DX:Asthma Bipolar disorder (CMS/HCC V2 4, CMS/HCC V28) DX:Bipolar disorder (HCC) Hepatitis C DX:Hepatitis C Alcohol abuse with withdrawa l (CMS/HCC V24, CMS/HCC V28) DX:Alcohol abuse with withdr awal ([facility]) Suicidal ideation DX:Suicidal id eation Tobacco dependence due to cigarettes DX:Tobacco dependence due to cigarettes Anxiety state DX:Anxiety state Social History Tobacco Use Types Packs/Day Years Used Date Smoking Tobacco: Every Day Smokeless Tobacco: Never Alcohol Use Standard Drinks/Week Comments Not Currently 0 (1 standard drink = 0.6 oz pur e alcohol) Comments Unknown Sex and Gender Information Value Date Recorded Sex Assigned at Not on file Legal Sex Female 9:12 AM EST Gender Identity Not on file Sexual Orientation Not on file Obstetrics History Last Filed Vital Signs Vital Sign Reading Time Taken Comments Blood Pressure 140/90 08/08/2022 11:00 AM EDT Si tting L Arm Pulse 85 08/08/2022 11:00 AM EDT Temperature - - Respiratory Rate - - Oxygen Saturation - - Inhaled Oxygen Concentration - - Weight 139 kg (307 lb) 08/30/2022 1:58 PM EDT Height 167.6 cm (5' 6 ) 08/30/2022 1:58 PM EDT Body Mass Index 49.55 08/30/2022 1:58 PM EDT Plan of Treatment Health Maintenance Due Date Last Done Comments Breast Cancer Screening 1974 DTaP,Tdap,and Td Vaccines (1 - Tdap) 1993 Hepatitis B Vaccines (1 of 3 - 19+ 3-dose series) 1993 Cervical Cancer Screening: P ap Smear 1995 Pneumococcal Vaccine: 50+ Ye ars (1 of 1 - PCV) 2024 Zoster Vaccines (1 of 2) 2024 Depression Screening 11/27/2024 COVID-19 Vaccine (1 - 2024-2 6 season) 2025 Influenza Vaccine (#1) 2025 RSV Immunization Adult Patie nts (1 - 1-dose 75+ series) 2049 HIB Vaccines Aged Out No longer eligi ble based on patient's age to complete this topic HPV Vaccines Aged Out No longer eligi ble based on patient's age to complete this topic Hepatitis A Vaccines Aged Out No long er eligible based on patient's age to complete this topic IPV Vaccines Aged Out No longer eligi ble based on patient's age to complete this topic MMR Vaccines Aged Out No longer eligi ble based on patient's age to complete this topic Meningococcal ACWY Vaccine Aged Out N o longer eligible based on patient's age to complete this topic Meningococcal B Vaccine Aged Out No l onger eligible based on patient's age to complete this topic RSV Immunization Patients Un ryley 20 months Aged Out No longer eligible b ased on patient's age to complete this topic Varicella Vaccines Aged Out No longer eligible based on patient's age to complete this topic Care Teams Flat Bed Knitter Relationship Specialty Start Date End Date Tiffany Bass MD [address] [place] [address] PCP - General Internal Medicine 11/12/21
--- OUTSIDE RECORDS SUMMARY | 2025-10-17 16:13 | XMS_ITS | Patient Health Record ---
Author Organization [facility] Address [address] [place] [address] Care Team Providers Care Disc Pad Grinder Name Role Phone Ramírez VILLAREAL, Roberts Primary Care Provider Bob Weaver [phone] Allergies Allergen (clinical drug ingredient) Drug/Non Drug Allergy documented on EMR Reaction Allergy Type Onset Date Status oseltamivir Tamiflu Unknown Drug Allergy Activ e trazodone Trazodone HCl Unknown Drug Allergy Act laisha Reason For Referral No Information Medications Medication SIG (Take, Route, Frequency, Duration) Notes Start Date End Date Status Lisinopril 20 MG Tablet 1 tablet Orally Once a day Active Omeprazole 20 MG Capsule Delayed Release 1 capsule Orally Once a day Active Immunizations Vaccine Route Administration Date Status Comme nts Influenza Unknown 09/04/2018 Administered Social History Tobacco Use: Social History Observation Description Date Details (start date - stop date) Current Smoker NA - NA Social History Drugs/Alcohol: Social Info Question Answer Notes Alcohol Screen Did you have a drink containing alcohol in the past year? No Points 0 Interpretation Negative Tobacco Use: Social Info Question Answer Notes Tobacco Use/Smoking Patient is a current smoker How often do you smoke cigarettes? every day How many cigarettes a day do you smoke? 5 or less How soon after you wake up do you smoke your first cigarette? after 60 minutes Are you interested in quitting? 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: Smoker approx 3 cigs per day; no sig alcohol Former IVDA since 08/2015 Smoker approx 3 cigs per day; no sig alcohol Former IVDA with abstinence since 08/2015 Problems Problem Type SNOMED Code ICD Code Onset Dates Problem Status W/U Status Risk Notes Problem Gastroesophageal reflux disease without esophagitis (688815832) Gastroesophageal reflux disease without esophagitis (K21.9) Active confirmed Problem Gastroesophageal reflux disease (031732294) Gastroesophageal reflux disease, esophagitis presence not specified (K21.9) Active confirmed Problem Essential hypertension (49290302) Hypertension, unspecified type (I10) Active confirmed Problem Hematemesis (7997293) Hematemesis with nausea (K92.0) Active confirmed Plan Of Treatment Future Test Test Name Order Date UPPER GI ENDOSCOPY 10/03/2018 Insurance Providers Payer Name Payer Address Payer Phone Subscriber Number Group Number Insured Name Patient Relationship to Insured Coverage Start Date Coverage End Date [facility] [employer] [facility] [address] [address] [place], [place] [id number] [phone] [id number] JOHN WONG Self - patient is the insured Medical (General) History Medical History History ICD Code Hepatitis C---due to IVDA--- -cured with treatment with Dr Hess approx 2016---had a course of Harvoni--neg. Hep C viral load 03/2018 Hypertension Denies MT,DM,CVA,Lung disease,renal dise ase GERD-EGD 10/2018-minimal HH, minimal gastritis--biopsies neg for Hpylori, no esophagitis/no Ricci's Neg. abdominal U/S in 05/2018 Surgical History Surgery Date(Month/Year)
[2025-10-17 16:18] LABS: Troponin-I High Sensitivity 13.3 ng/L (<3.5-17.0)
[2025-10-17 16:41] LABS: NT Pro B Type Natriuretic Pept 353.0 pg/mL (<300)
[2025-10-17 17:19] LABS: Appearance Urine Clear; Glucose Urine UA Negative (Negative); PH 6.0 (5.0-9.0); Specific Gravity - Urine 1.025 (1.005-1.025); UMIC TRIGGER UA YES
--- NOTE | 2025-10-17 17:32 | PC.NURSE ---
pt is alert and oriented, skin pink but clammy to the touch on her back, respirations even and unlabored, ls clear, pt reports for a couple of weeks having mid sternal/epigastric pain with nausea, pain at 6/10 at this time, pt also has hx of HTN but has been off medication for a couple of months because she moved and lost her insurance, normal sinus on the monitor, hyper active bowel sounds in all 4 quadrants, abd soft and non-tender
[2025-10-17 17:53] LABS: Troponin-I High Sensitivity 15.8 ng/L (<3.5-17.0)
[2025-10-17 17:59] LABS: Lipase 29 U/L (8-78)
[2025-10-17 18:06] LABS: Resp Syncy Virus RNA Qual PCR NEGATIVE (Negative); SARS COV2 PCR INHOUSE NEGATIVE (Negative)
[2025-10-17] MEDS: iohexoL 350 MG/ML 100 ML INFUS..BTL IV (18:37)
== END 2025-10-17 22:58 | disposition home or self-care (01) ==
PROVIDERS: Nurse Practitioner; Physician Assistant; Emergency Provider Emergency Medicine
DX: R10.20 Pelvic and perineal pain unspecified side (principal); R07.89 Other chest pain; R06.02 Shortness of breath; F41.9 Anxiety disorder, unspecified; R11.2 Nausea with vomiting, unspecified; Z79.899 Other long term (current) drug therapy; Z03.818 Encounter for observation for suspected exposure to other biological agents ruled out
CPT/HCPCS: 36415; 71045; 71275; 74177; 80053; 81001; 82248; 83690; 83880; 84484; 85025; 85610; 85730; 87637; 93005; 96361; 96374; 96375; 99284; 99285; J2270; J2405; J2470; Q9967

== ENCOUNTER → 2025-10-17 13:48 | Outpatient (BNV) | payer OTHER, SELFPAY | PROVIDERS: Emergency Provider Emergency Medicine; Visit Provider Internal Medicine | DX: R00.0 Tachycardia, unspecified (principal) | CPT/HCPCS: 93010 ==

== ENCOUNTER → 2025-10-17 15:20 | Outpatient (BNV) | payer OTHER, SELFPAY | PROVIDERS: Visit Provider Radiology Diagnostic Radiology | DX: R10.13 Epigastric pain (principal); Z03.89 Encounter for observation for other suspected diseases and conditions ruled out; J84.9 Interstitial pulmonary disease, unspecified | CPT/HCPCS: 71045; 71275; 74177 ==